=== PATIENT | male | born 1990 | race Caucasian/White ===

== ENCOUNTER 2017-06-19 08:49 | Inpatient (IN) | payer MEDICAID ==
[~2017-06-19] VITALS: Ht 188 cm; Wt 81.6 kg
[2017-06-19 08:49] VITALS: BP_SYST 119
[~2017-06-19 08:49] MED LIST: INSU100V SQ; INSU100V9 SQ; INSU100V9 SUBCUT; SSREG SUBCUT; WELSR100 PO
[2017-06-19] MEDS ORDERED: NACL 0.9% 1,000 ML IV ONE (09:15)
[2017-06-19] MEDS ORDERED: ONDANSETRON HCL 4 MG/2 ML VIAL IVP ONE ×2 (09:15→14:30)
[2017-06-19] MEDS ORDERED: PIPERACILLIN/TAZO 3.375 GM in NS 50 ML IV ONE (09:15)
[2017-06-19 09:18] LABS: BLOOD, URINE NEGATIVE (NEGATIVE); CLARITY/URINE CLEAR (CLEAR); COLOR,URINE YELLOW (YELLOW); GLUCOSE,URINE 3+ (NEGATIVE); KETONES,URINE 3+ (NEGATIVE); LEUKOCYTE ESTERASE ,URINE NEGATIVE (NEGATIVE); NITRITE, URINE NEGATIVE (NEGATIVE); PH,URINE 5.5 (5.0-8.0); PROTEIN URINE NEGATIVE (NEGATIVE); UROBILINOGEN,URINE 0.2 (0.2-1.0)
[2017-06-19 09:19] LABS: BASOPHILS # (AUTO) 0.1 K/uL (0.0-0.2); BASOPHILS % (AUTO) 0.7 % (0.0-2.0); EOSINOPHILS % (AUTO) 0.5 % (0.0-4.0); HEMATOCRIT 45.8 % (36-54); HEMOGLOBIN 15.4 g/dL (14.0-18.0); LYMPHOCYTES # (AUTO) 1.6 K/uL (1.0-5.5); MEAN CORPUSCULAR HEMOGLOBIN 30 pg (27-31); MEAN CORPUSCULAR HGB CONC 34 % (32-36); MEAN CORPUSCULAR VOLUME 91 fL (79.0-98.0); MONOCYTES # (AUTO) 0.4 K/uL (0.0-1.0); MONOCYTES % (AUTO) 4.9 % (1.7-9.3); NEUTROPHILS # (AUTO) 6.5 K/uL (1.8-7.7); NEUTROPHILS % (AUTO) 74.9 % (40.0-70.0); PLATELET COUNT (AUTO) 297 K/uL (130-430); RED BLOOD CELL COUNT(AUTO) 5.06 MIL/uL (4.2-6.2); RED CELL DISTRIBUTION WIDTH 11.9 % (9.0-15.0); WHITE BLOOD COUNT (AUTO) 8.6 K/uL (4.8-10.8)
[2017-06-19] MEDS ORDERED: DIPHENHYDRAMINE INJ 50 MG/ML VIAL IVP ONE (09:30)
[2017-06-19] MEDS ORDERED: MORPHINE 2 MG/ML INJ. SYRINGE IVP ONE ×2 (09:30→18:15)
[2017-06-19] MEDS ORDERED: PIPERACILLIN/TAZOBACTAM 3.375 GM/VIAL (ZOSYN) IV ONE (09:34)
[2017-06-19 09:35] LABS: BILIRUBIN,URINE NEGATIVE (NEGATIVE)
[2017-06-19 09:40] LABS: ANION GAP 15 (5-15); CALCIUM 9.8 mg/dL (8.4-11.0); CHLORIDE 95 mmol/L (98-107); CREATININE 1.42 mg/dL (0.55-1.30); GLUCOSE 379 mg/dL (70-99); POTASSIUM 4.5 mmol/L (3.5-5.1); SODIUM SERUM 135 mmol/L (136-145); UREA NITROGEN, BLOOD 26 mg/dL (8-21)
[2017-06-19 09:41] LABS: GFR AFRICAN AMERICAN 78 mL/min (>90)
[2017-06-19 09:44] LABS: INR 1.1 (0.80-1.20); PROTHROMBIN TIME 11.1 SECS (9.5-12.5)
[2017-06-19 09:44] LABS: BARBITURATE, URINE NEGATIVE (NEG <=200); BENZODIAZEPINE, URINE NEGATIVE (NEG <=150); CANNABINOID, URINE POSITIVE (NEG <=50); COCAINE, URINE NEGATIVE (NEG <=150); METHAMPHETAMINES SCREEN,URINE NEGATIVE (NEG <=500); OPIATE, URINE NEGATIVE (NEG <=100); PHENCYCLIDINE SCREEN,URINE NEGATIVE (NEG <=25); UR TRICYCLIC ANTIDEPRESSANTS NEGATIVE (NEG <=300); URINE AMPHETAMINE NEGATIVE (NEG <=500); URINE METHADONE NEGATIVE (NEG <=200); URINE OXYCODONE SCREEN NEGATIVE (NEG <=100); URINE PROPOXYPHENE SCREEN NEGATIVE (NEG <=300)
[2017-06-19 10:13] LABS: ALANINE AMINOTRANSFERASE 91 U/L (12-78); ALBUMIN 3.8 g/dL (3.4-4.8); ASPARTATE AMINOTRANSFERASE 39 U/L (10-37); FREE T4 (FREE THYROXINE) 1.3 ng/dL (0.6-1.6); TOTAL BILIRUBIN 1.7 mg/dL (0.0-1.0)
[2017-06-19 10:23] LABS: ALCOHOL, BLOOD < 3 mg/dL (<10)
[2017-06-19 10:59] LABS: ACETONE, SERUM POSITIVE (NEGATIVE)
[2017-06-19] MEDS ORDERED: INSU10VI4 SUBCUT (12:08)
[2017-06-19] MEDS ORDERED: INSU100I26 SQ (12:08)
[2017-06-19 15:59] VITALS: BP_SYST 145
[2017-06-19] MEDS ORDERED: CALCIUM CARBONATE 500 MG/ TAB.CHEW PO PRN (16:00)
[2017-06-19] MEDS ORDERED: ACETAMINOPHEN 325 MG TABLET PO PRN (16:00)
[2017-06-19] MEDS ORDERED: INSULIN REGULAR, HUMAN 100 UNITS/ML, 10 ML VIAL (novoLIN R) SUBCUT PRN (16:00)
[2017-06-19] MEDS ORDERED: DEXTROSE 50% JECT 50 ML DISP.SYRIN IVP PRN (16:00)
[2017-06-19] MEDS ORDERED: HYDROcodone/ACETAMIN 5-325 MG TAB (NORCO/ VICODIN) PO PRN (16:00)
[2017-06-19 16:40] VITALS: BP_SYST 150
[2017-06-19] MEDS: ONDANSETRON HCL 4 MG/2 ML VIAL IVP PRN (17:49)
[2017-06-19] MEDS: NACL 0.9% 1,000 ML IV SCH (17:49)
[2017-06-19 20:00] VITALS: BP_SYST 150
[2017-06-19] MEDS: PANTOPRAZOLE SODIUM 40 MG/VIAL (PROTONIX) IVP SCH (21:09)
[2017-06-19] MEDS: INSULIN ASPART 100 UNITS/ML, 10 ML VIAL (NovoLOG) SUBCUT PRN (21:21)
[2017-06-19] MEDS: METOCLOPRAMIDE HCL 10 MG/2 ML VIAL IVP PRN (21:23)
[2017-06-20] MEDS: NACL 0.9% 1,000 ML IV SCH ×3 (01:35→17:15)
[2017-06-20] MEDS: INSULIN ASPART 100 UNITS/ML, 10 ML VIAL (NovoLOG) SUBCUT PRN ×4 (06:15→22:57)
[2017-06-20] MEDS: METOCLOPRAMIDE HCL 10 MG/2 ML VIAL IVP PRN (06:17)
[2017-06-20 06:55] LABS: BASOPHILS % (AUTO) 0.4 % (0.0-2.0); EOSINOPHILS # (AUTO) 0.2 K/uL (0.0-0.4); EOSINOPHILS % (AUTO) 2.2 % (0.0-4.0); HEMATOCRIT 34.6 % (36-54); HEMOGLOBIN 11.9 g/dL (14.0-18.0); LYMPHOCYTES # (AUTO) 2.3 K/uL (1.0-5.5); LYMPHOCYTES % (AUTO) 28.2 % (20.5-51.5); MEAN CORPUSCULAR HEMOGLOBIN 31 pg (27-31); MEAN CORPUSCULAR HGB CONC 35 % (32-36); MEAN CORPUSCULAR VOLUME 91 fL (79.0-98.0); MONOCYTES # (AUTO) 0.6 K/uL (0.0-1.0); MONOCYTES % (AUTO) 7.7 % (1.7-9.3); NEUTROPHILS # (AUTO) 4.9 K/uL (1.8-7.7); NEUTROPHILS % (AUTO) 61.5 % (40.0-70.0); PLATELET COUNT (AUTO) 253 K/uL (130-430); RED BLOOD CELL COUNT(AUTO) 3.82 MIL/uL (4.2-6.2); RED CELL DISTRIBUTION WIDTH 11.4 % (9.0-15.0); WHITE BLOOD COUNT (AUTO) 8.1 K/uL (4.8-10.8)
[2017-06-20 06:56] LABS: CALCIUM 7.9 mg/dL (8.4-11.0); CREATININE 0.85 mg/dL (0.55-1.30); POTASSIUM 3.6 mmol/L (3.5-5.1)
[2017-06-20 07:11] LABS: ALBUMIN 2.9 g/dL (3.4-4.8); THYROID STIMULATING HORMONE 0.97 uIu/mL (0.36-3.74); TOTAL BILIRUBIN 0.9 mg/dL (0.0-1.0)
[2017-06-20 09:00] VITALS: BP_SYST 142
[2017-06-20] MEDS: PANTOPRAZOLE SODIUM 40 MG/VIAL (PROTONIX) IVP SCH ×2 (10:11→22:58)
[2017-06-20] MEDS: ONDANSETRON HCL 4 MG/2 ML VIAL IVP PRN ×2 (10:16→17:15)
[2017-06-20 12:00] VITALS: BP_SYST 137
[2017-06-20 16:50] VITALS: BP_SYST 136
[2017-06-20 20:00] VITALS: BP_SYST 138
[2017-06-20] MEDS ORDERED: ZOLPIDEM TARTRATE 5 MG TABLET PO ONE (22:15)
[2017-06-21] MEDS: INSULIN ASPART 100 UNITS/ML, 10 ML VIAL (NovoLOG) SUBCUT PRN ×4 (06:22→22:02)
[2017-06-21 06:31] LABS: BASOPHILS % (AUTO) 0.5 % (0.0-2.0); EOSINOPHILS # (AUTO) 0.1 K/uL (0.0-0.4); EOSINOPHILS % (AUTO) 1.3 % (0.0-4.0); HEMOGLOBIN 12.6 g/dL (14.0-18.0); LYMPHOCYTES # (AUTO) 2.3 K/uL (1.0-5.5); LYMPHOCYTES % (AUTO) 33.4 % (20.5-51.5); MEAN CORPUSCULAR HEMOGLOBIN 31 pg (27-31); MEAN CORPUSCULAR HGB CONC 35 % (32-36); MEAN CORPUSCULAR VOLUME 90 fL (79.0-98.0); MONOCYTES # (AUTO) 0.7 K/uL (0.0-1.0); MONOCYTES % (AUTO) 10.7 % (1.7-9.3); NEUTROPHILS # (AUTO) 3.8 K/uL (1.8-7.7); NEUTROPHILS % (AUTO) 54.1 % (40.0-70.0); PLATELET COUNT (AUTO) 235 K/uL (130-430); RED BLOOD CELL COUNT(AUTO) 4.01 MIL/uL (4.2-6.2); RED CELL DISTRIBUTION WIDTH 11.3 % (9.0-15.0); WHITE BLOOD COUNT (AUTO) 6.9 K/uL (4.8-10.8)
[2017-06-21 07:07] LABS: ALBUMIN 2.6 g/dL (3.4-4.8); CALCIUM 8.3 mg/dL (8.4-11.0); CREATININE 0.79 mg/dL (0.55-1.30); POTASSIUM 3.2 mmol/L (3.5-5.1); TOTAL BILIRUBIN 0.8 mg/dL (0.0-1.0)
[2017-06-21 08:12] VITALS: BP_SYST 139
[2017-06-21] MEDS: PANTOPRAZOLE SODIUM 40 MG/VIAL (PROTONIX) IVP SCH ×2 (08:50→21:55)
[2017-06-21] MEDS: METOCLOPRAMIDE HCL 10 MG/2 ML VIAL IVP PRN ×2 (08:55→16:09)
[2017-06-21] MEDS: NACL 0.9% 1,000 ML IV SCH ×2 (08:56→10:25)
[2017-06-21] MEDS ORDERED: POTASSIUM CHLORIDE 40 MEQ, LIDOCAINE JECT 2% PF 100 MG 75 MG in NS 250 ML IV ONE (09:30)
[2017-06-21] MEDS: ONDANSETRON HCL 4 MG/2 ML VIAL IVP PRN (12:04)
[2017-06-21 12:34] VITALS: BP_SYST 149
[2017-06-21 16:38] VITALS: BP_SYST 133
[2017-06-21] MEDS: KCL 20 mEq in 0.45% NS 1000 mL 1,000 ML IV SCH (17:30)
[2017-06-21 20:00] VITALS: BP_SYST 125
[2017-06-22] MEDS: KCL 20 mEq in 0.45% NS 1000 mL 1,000 ML IV SCH (03:54)
[2017-06-22 08:04] VITALS: BP_SYST 140
[2017-06-22] MEDS: PANTOPRAZOLE SODIUM 40 MG/VIAL (PROTONIX) IVP SCH (09:08)
[2017-06-22] MEDS: INSULIN ASPART 100 UNITS/ML, 10 ML VIAL (NovoLOG) SUBCUT PRN (11:44)
[2017-06-22 12:19] VITALS: BP_SYST 114
[2017-06-22 14:00] VITALS: BP_SYST 128
== END 2017-06-22 15:05 | disposition home or self-care (01) | DRG 812 ==
LOC: SED 08:49 → SMU 15:29
PROVIDERS: ADMIT Internal Medicine; ATTEND Internal Medicine
DX: T40.7X1A Poisoning by cannabis (derivatives), accidental (unintentional), initial encounter (principal); E10.65 Type 1 diabetes mellitus with hyperglycemia; B19.20 Unspecified viral hepatitis C without hepatic coma; F12.10 Cannabis abuse, uncomplicated; Z91.19 Patient's noncompliance with other medical treatment and regimen; Z79.4 Long term (current) use of insulin; Z88.8 Allergy status to other drugs, medicaments and biological substances
CPT/HCPCS: 36415; 71010; 74000-TC; 80053; 80307; 81003; 82009-TC; 82962; 83036; 83605; 83690-TC; 84439; 84443-TC; 85025; 85610-TC; 87040-TC; 87081; 93005; 96361; 96365; 96375; 96376; 99285; C9113; G0482; J1200; J1815; J2270; J2405; J2543; J2765; J3480; J7030; J7050

== ENCOUNTER 2017-07-09 19:14 | Inpatient (IN) | payer MEDICAID ==
[~2017-07-09] VITALS: Ht 188 cm; Wt 77.1 kg
[~2017-07-09 19:14] MED LIST changes: +DIF100 PO; +INSU100I26 SQ; -INSU100V9 SQ; -INSU100V9 SUBCUT; +INSU10VI4 SUBCUT; +OMEP20TA20 PO; -SSREG SUBCUT; -WELSR100 PO
[2017-07-09 19:20] VITALS: BP_SYST 129
[2017-07-09] MEDS ORDERED: NACL 0.9% 1,000 ML IV ONE ×2 (20:19→21:22)
[2017-07-09] MEDS ORDERED: PANTOPRAZOLE SODIUM 40 MG/VIAL (PROTONIX) IVP ONE (20:30)
[2017-07-09] MEDS ORDERED: ONDANSETRON HCL 4 MG/2 ML VIAL IVP ONE (20:30)
[2017-07-09] MEDS ORDERED: MORPHINE 4 MG/ML INJ. SYRINGE IVP ONE (20:30)
[2017-07-09 20:50] LABS: BASOPHILS # (AUTO) 0.1 K/uL (0.0-0.2); BASOPHILS % (AUTO) 1.7 % (0.0-2.0); HEMATOCRIT 33.1 % (36-54); HEMOGLOBIN 11.1 g/dL (14.0-18.0); LYMPHOCYTES # (AUTO) 1.1 K/uL (1.0-5.5); LYMPHOCYTES % (AUTO) 25.4 % (20.5-51.5); MEAN CORPUSCULAR HEMOGLOBIN 31 pg (27-31); MEAN CORPUSCULAR HGB CONC 33 % (32-36); MEAN CORPUSCULAR VOLUME 93 fL (79.0-98.0); MONOCYTES # (AUTO) 0.4 K/uL (0.0-1.0); MONOCYTES % (AUTO) 10.4 % (1.7-9.3); NEUTROPHILS # (AUTO) 2.7 K/uL (1.8-7.7); NEUTROPHILS % (AUTO) 61.5 % (40.0-70.0); PLATELET COUNT (AUTO) 257 K/uL (130-430); RED BLOOD CELL COUNT(AUTO) 3.56 MIL/uL (4.2-6.2); RED CELL DISTRIBUTION WIDTH 15.3 % (9.0-15.0); WHITE BLOOD COUNT (AUTO) 4.3 K/uL (4.8-10.8)
[2017-07-09 21:10] LABS: CALCIUM 7.7 mg/dL (8.4-11.0); CREATININE 0.98 mg/dL (0.55-1.30); POTASSIUM 3.4 mmol/L (3.5-5.1)
[2017-07-09 21:11] LABS: ALBUMIN 3.3 g/dL (3.4-4.8); TOTAL BILIRUBIN 1.4 mg/dL (0.0-1.0)
[2017-07-09] MEDS ORDERED: INSULIN REGULAR, HUMAN 10 UNITS/0.1 ML INJ IVP ONE (21:30)
[2017-07-09 22:39] LABS: BILIRUBIN,URINE NEGATIVE (NEGATIVE); BLOOD, URINE NEGATIVE (NEGATIVE); CLARITY/URINE CLEAR (CLEAR); COLOR,URINE YELLOW (YELLOW); GLUCOSE,URINE 3+ (NEGATIVE); KETONES,URINE NEGATIVE (NEGATIVE); LEUKOCYTE ESTERASE ,URINE NEGATIVE (NEGATIVE); NITRITE, URINE NEGATIVE (NEGATIVE); PROTEIN URINE NEGATIVE (NEGATIVE)
[2017-07-09 22:44] LABS: BACTERIA,URINE RARE /HPF (None Seen); RBC,URINE 0-3 /HPF (0-3); WBC,URINE 0-3 /HPF (0-3)
[2017-07-10 01:05] VITALS: BP_SYST 160
[2017-07-10] MEDS: MORPHINE 2 MG/ML INJ. SYRINGE IVP PRN ×4 (01:29→17:36)
[2017-07-10] MEDS: METOCLOPRAMIDE HCL 10 MG/2 ML VIAL IVP PRN ×2 (01:30→10:50)
[2017-07-10] MEDS: NACL 0.9% 1,000 ML IV SCH ×2 (01:47→13:50)
[2017-07-10 04:00] VITALS: BP_SYST 150
[2017-07-10] MEDS: INSULIN REGULAR, HUMAN 100 UNITS/ML, 10 ML VIAL (novoLIN R) SUBCUT PRN ×4 (06:38→23:12)
[2017-07-10] MEDS: ONDANSETRON HCL 4 MG/2 ML VIAL IVP PRN ×2 (06:39→12:24)
[2017-07-10 07:44] VITALS: BP_SYST 121
[2017-07-10 10:45] LABS: BASOPHILS % (AUTO) 0.7 % (0.0-2.0); EOSINOPHILS # (AUTO) 0.1 K/uL (0.0-0.4); EOSINOPHILS % (AUTO) 1.5 % (0.0-4.0); HEMATOCRIT 30.5 % (36-54); HEMOGLOBIN 10.6 g/dL (14.0-18.0); LYMPHOCYTES # (AUTO) 1.9 K/uL (1.0-5.5); LYMPHOCYTES % (AUTO) 39.6 % (20.5-51.5); MEAN CORPUSCULAR HEMOGLOBIN 32 pg (27-31); MEAN CORPUSCULAR HGB CONC 35 % (32-36); MEAN CORPUSCULAR VOLUME 92 fL (79.0-98.0); MONOCYTES # (AUTO) 0.5 K/uL (0.0-1.0); MONOCYTES % (AUTO) 10.4 % (1.7-9.3); NEUTROPHILS # (AUTO) 2.3 K/uL (1.8-7.7); NEUTROPHILS % (AUTO) 47.8 % (40.0-70.0); PLATELET COUNT (AUTO) 238 K/uL (130-430); RED BLOOD CELL COUNT(AUTO) 3.29 MIL/uL (4.2-6.2); RED CELL DISTRIBUTION WIDTH 15.6 % (9.0-15.0); WHITE BLOOD COUNT (AUTO) 4.8 K/uL (4.8-10.8)
[2017-07-10] MEDS: PANTOPRAZOLE SODIUM 40 MG/VIAL (PROTONIX) IVP SCH (10:48)
[2017-07-10] MEDS ORDERED: LACTULOSE 20 GM/30 ML UDC PO ONE (12:15)
[2017-07-10 13:03] VITALS: BP_SYST 159
[2017-07-10 16:01] VITALS: BP_SYST 118
[2017-07-10] MEDS: METOCLOPRAMIDE HCL 10 MG/2 ML VIAL IVP SCH ×2 (17:36→23:13)
[2017-07-10 20:00] VITALS: BP_SYST 131
[2017-07-10 20:49] LABS: BARBITURATE, URINE NEGATIVE (NEG <=200); BENZODIAZEPINE, URINE NEGATIVE (NEG <=150); CANNABINOID, URINE POSITIVE (NEG <=50); COCAINE, URINE NEGATIVE (NEG <=150); METHAMPHETAMINES SCREEN,URINE NEGATIVE (NEG <=500); PHENCYCLIDINE SCREEN,URINE NEGATIVE (NEG <=25); URINE AMPHETAMINE NEGATIVE (NEG <=500); URINE METHADONE NEGATIVE (NEG <=200)
[2017-07-10 20:50] LABS: OPIATE, URINE POSITIVE (NEG <=100); UR TRICYCLIC ANTIDEPRESSANTS NEGATIVE (NEG <=300); URINE OXYCODONE SCREEN NEGATIVE (NEG <=100); URINE PROPOXYPHENE SCREEN NEGATIVE (NEG <=300)
[2017-07-11] VITALS: BP_SYST 125
[2017-07-11] MEDS: NACL 0.9% 1,000 ML IV SCH ×2 (03:10→16:46)
[2017-07-11] MEDS: ONDANSETRON HCL 4 MG/2 ML VIAL IVP PRN ×2 (03:20→16:38)
[2017-07-11] MEDS: MORPHINE 2 MG/ML INJ. SYRINGE IVP PRN ×4 (03:20→23:15)
[2017-07-11 04:00] VITALS: BP_SYST 128
[2017-07-11] MEDS: METOCLOPRAMIDE HCL 10 MG/2 ML VIAL IVP SCH ×4 (06:12→23:14)
[2017-07-11 08:00] VITALS: BP_SYST 130
[2017-07-11] MEDS: PANTOPRAZOLE SODIUM 40 MG/VIAL (PROTONIX) IVP SCH (09:45)
[2017-07-11] MEDS: FLUCONAZOLE 100 MG TABLET (DIFLUCAN) PO SCH (09:46)
[2017-07-11] MEDS: INSULIN REGULAR, HUMAN 100 UNITS/ML, 10 ML VIAL (novoLIN R) SUBCUT PRN ×3 (11:44→23:17)
[2017-07-11 12:00] VITALS: BP_SYST 119
[2017-07-11 16:00] VITALS: BP_SYST 129
[2017-07-11 20:00] VITALS: BP_SYST 142
[2017-07-12 00:35] VITALS: BP_SYST 136
[2017-07-12] MEDS: ONDANSETRON HCL 4 MG/2 ML VIAL IVP PRN (03:57)
[2017-07-12] MEDS: MORPHINE 2 MG/ML INJ. SYRINGE IVP PRN ×2 (03:58→09:14)
[2017-07-12 05:35] VITALS: BP_SYST 167
[2017-07-12] MEDS: METOCLOPRAMIDE HCL 10 MG/2 ML VIAL IVP SCH (06:54)
[2017-07-12 08:12] VITALS: BP_SYST 128
[2017-07-12] MEDS: FLUCONAZOLE 100 MG TABLET (DIFLUCAN) PO SCH (08:58)
[2017-07-12] MEDS: PANTOPRAZOLE SODIUM 40 MG/VIAL (PROTONIX) IVP SCH (08:58)
[2017-07-12 11:31] VITALS: BP_SYST 128
== END 2017-07-12 12:10 | disposition home or self-care (01) | DRG 48 ==
LOC: SED 19:14 → SMU 07-10 00:29
PROVIDERS: ADMIT Internal Medicine Hospice and Palliative Medicine; ATTEND Internal Medicine Hospice and Palliative Medicine
DX: E10.43 Type 1 diabetes mellitus with diabetic autonomic (poly)neuropathy (principal); E10.65 Type 1 diabetes mellitus with hyperglycemia; K31.84 Gastroparesis; K59.00 Constipation, unspecified; K20.9 Esophagitis, unspecified; Z88.0 Allergy status to penicillin; F12.90 Cannabis use, unspecified, uncomplicated; F14.10 Cocaine abuse, uncomplicated; B18.2 Chronic viral hepatitis C; Z91.14 Patient's other noncompliance with medication regimen; Z79.899 Other long term (current) drug therapy
CPT/HCPCS: 36415; 80053; 80307; 81000-TC; 82962; 83690-TC; 85025; 87081; 96361; 96374; 96375; 99285; C9113; J1815; J2270; J2405; J2765; J7030

== ENCOUNTER 2017-07-15 10:50 | Inpatient (IN) | payer MEDICAID ==
[~2017-07-15] VITALS: Ht 188 cm; Wt 76.7 kg
[~2017-07-15 10:50] MED LIST changes: -INSU10VI4 SUBCUT; -OMEP20TA20 PO
[2017-07-15 10:58] VITALS: BP_SYST 134
[2017-07-15] MEDS ORDERED: NACL 0.9% 1,000 ML IV ONE ×2 (11:08→13:00)
[2017-07-15] MEDS ORDERED: ONDANSETRON HCL 4 MG/2 ML VIAL IVP ONE (11:15)
[2017-07-15 11:25] LABS: BILIRUBIN,URINE NEGATIVE (NEGATIVE); BLOOD, URINE NEGATIVE (NEGATIVE); CLARITY/URINE CLEAR (CLEAR); COLOR,URINE YELLOW (YELLOW); GLUCOSE,URINE 3+ (NEGATIVE); KETONES,URINE 3+ (NEGATIVE); LEUKOCYTE ESTERASE ,URINE NEGATIVE (NEGATIVE); NITRITE, URINE NEGATIVE (NEGATIVE); PROTEIN URINE NEGATIVE (NEGATIVE); UROBILINOGEN,URINE 0.2 (0.2-1.0)
[2017-07-15 11:27] LABS: BASOPHILS % (AUTO) 0.2 % (0.0-2.0); EOSINOPHILS % (AUTO) 0.1 % (0.0-4.0); HEMATOCRIT 37.6 % (36-54); LYMPHOCYTES # (AUTO) 1.7 K/uL (1.0-5.5); LYMPHOCYTES % (AUTO) 14.7 % (20.5-51.5); MEAN CORPUSCULAR HEMOGLOBIN 32 pg (27-31); MEAN CORPUSCULAR HGB CONC 35 % (32-36); MEAN CORPUSCULAR VOLUME 93 fL (79.0-98.0); MONOCYTES # (AUTO) 0.3 K/uL (0.0-1.0); MONOCYTES % (AUTO) 2.9 % (1.7-9.3); NEUTROPHILS # (AUTO) 9.5 K/uL (1.8-7.7); NEUTROPHILS % (AUTO) 82.1 % (40.0-70.0); PLATELET COUNT (AUTO) 365 K/uL (130-430); RED BLOOD CELL COUNT(AUTO) 4.06 MIL/uL (4.2-6.2); RED CELL DISTRIBUTION WIDTH 15.1 % (9.0-15.0); WHITE BLOOD COUNT (AUTO) 11.5 K/uL (4.8-10.8)
[2017-07-15] MEDS ORDERED: MORPHINE 2 MG/ML INJ. SYRINGE IVP ONE (11:30)
[2017-07-15 11:31] LABS: BACTERIA,URINE RARE /HPF (None Seen); MUCUS,URINE 1+ /LPF (None Seen); RBC,URINE 0-3 /HPF (0-3); WBC,URINE 0-3 /HPF (0-3)
[2017-07-15 11:39] LABS: CALCIUM 8.5 mg/dL (8.4-11.0); CREATININE 1.16 mg/dL (0.55-1.30); POTASSIUM 3.8 mmol/L (3.5-5.1)
[2017-07-15 11:46] LABS: ALBUMIN 4.1 g/dL (3.4-4.8); TOTAL BILIRUBIN 3.4 mg/dL (0.0-1.0)
[2017-07-15] MEDS ORDERED: INSULIN REGULAR, HUMAN 100 UNITS in NS 99 ML IV ONE ×2 (12:15)
[2017-07-15] MEDS ORDERED: INSULIN REGULAR, HUMAN 10 UNITS/0.1 ML INJ IVP ONE (12:45)
[2017-07-15] MEDS ORDERED: DEXTROSE 50% JECT 50 ML DISP.SYRIN IVP PRN (13:00)
[2017-07-15] MEDS ORDERED: METOCLOPRAMIDE HCL 10 MG/2 ML VIAL IVP PRN (13:00)
[2017-07-15 13:04] VITALS: BP_SYST 169
[2017-07-15] MEDS: NACL 0.9% 1,000 ML IV SCH ×3 (13:43→21:24)
[2017-07-15] MEDS: ONDANSETRON HCL 4 MG/2 ML VIAL IVP PRN (13:59)
[2017-07-15] MEDS: MORPHINE 2 MG/ML INJ. SYRINGE IVP PRN (16:30)
[2017-07-15] MEDS: ERYTHROMYCIN BASE 500 MG TABLET PO SCH (17:01)
[2017-07-15] MEDS: METOCLOPRAMIDE HCL 10 MG/2 ML VIAL IVP SCH ×2 (17:02→23:11)
[2017-07-15] MEDS: INSULIN REGULAR, HUMAN 100 UNITS/ML, 10 ML VIAL (novoLIN R) SUBCUT PRN ×2 (17:10→23:10)
[2017-07-15 17:34] VITALS: BP_SYST 156
[2017-07-15] MEDS ORDERED: [UNRECOGNIZED DRUG - OTHER] SQ SCH (21:00)
[2017-07-15] MEDS ORDERED: INSULIN GLARGINE HUM REC ANLOG 50 UNIT SQ SCH (21:00)
[2017-07-15] MEDS: PANTOPRAZOLE SODIUM 40 MG/VIAL (PROTONIX) IVP SCH (21:18)
[2017-07-15 21:49] VITALS: BP_SYST 112
[2017-07-16 01:11] VITALS: BP_SYST 125
[2017-07-16] MEDS: ONDANSETRON HCL 4 MG/2 ML VIAL IVP PRN ×4 (02:29→17:20)
[2017-07-16 04:14] VITALS: BP_SYST 129
[2017-07-16] MEDS: ERYTHROMYCIN BASE 500 MG TABLET PO SCH ×3 (06:18→17:00)
[2017-07-16] MEDS: METOCLOPRAMIDE HCL 10 MG/2 ML VIAL IVP SCH ×3 (06:19→21:55)
[2017-07-16 08:00] VITALS: BP_SYST 132
[2017-07-16] MEDS: PANTOPRAZOLE SODIUM 40 MG/VIAL (PROTONIX) IVP SCH ×2 (08:22→21:50)
[2017-07-16] MEDS: NACL 0.9% 1,000 ML IV SCH ×3 (08:22→21:57)
[2017-07-16] MEDS: MORPHINE 2 MG/ML INJ. SYRINGE IVP PRN ×4 (08:23→21:57)
[2017-07-16 12:00] VITALS: BP_SYST 163
[2017-07-16] MEDS: INSULIN REGULAR, HUMAN 100 UNITS/ML, 10 ML VIAL (novoLIN R) SUBCUT PRN ×2 (13:28→17:24)
[2017-07-16 16:00] VITALS: BP_SYST 133
[2017-07-16 20:00] VITALS: BP_SYST 167
[2017-07-17] MEDS: INSULIN REGULAR, HUMAN 100 UNITS/ML, 10 ML VIAL (novoLIN R) SUBCUT PRN ×2 (00:27→12:31)
[2017-07-17 00:29] VITALS: BP_SYST 140
[2017-07-17] MEDS: METOCLOPRAMIDE HCL 10 MG/2 ML VIAL IVP SCH ×2 (06:17→14:00)
[2017-07-17] MEDS: NACL 0.9% 1,000 ML IV SCH ×2 (06:18→12:18)
[2017-07-17] MEDS: ERYTHROMYCIN BASE 500 MG TABLET PO SCH ×2 (06:19→11:30)
[2017-07-17] MEDS: MORPHINE 2 MG/ML INJ. SYRINGE IVP PRN ×2 (06:19→10:51)
[2017-07-17 06:28] LABS: BASOPHILS % (AUTO) 0.7 % (0.0-2.0); EOSINOPHILS # (AUTO) 0.1 K/uL (0.0-0.4); EOSINOPHILS % (AUTO) 0.9 % (0.0-4.0); HEMATOCRIT 32.3 % (36-54); LYMPHOCYTES # (AUTO) 2.4 K/uL (1.0-5.5); LYMPHOCYTES % (AUTO) 37.3 % (20.5-51.5); MEAN CORPUSCULAR HEMOGLOBIN 31 pg (27-31); MEAN CORPUSCULAR HGB CONC 34 % (32-36); MEAN CORPUSCULAR VOLUME 91 fL (79.0-98.0); MONOCYTES # (AUTO) 0.5 K/uL (0.0-1.0); MONOCYTES % (AUTO) 7.1 % (1.7-9.3); NEUTROPHILS # (AUTO) 3.5 K/uL (1.8-7.7); PLATELET COUNT (AUTO) 254 K/uL (130-430); RED BLOOD CELL COUNT(AUTO) 3.54 MIL/uL (4.2-6.2); RED CELL DISTRIBUTION WIDTH 14.9 % (9.0-15.0); WHITE BLOOD COUNT (AUTO) 6.5 K/uL (4.8-10.8)
[2017-07-17 06:58] LABS: CALCIUM 7.7 mg/dL (8.4-11.0); CREATININE 0.59 mg/dL (0.55-1.30); POTASSIUM 3.1 mmol/L (3.5-5.1)
[2017-07-17 08:10] VITALS: BP_SYST 146
[2017-07-17] MEDS: PANTOPRAZOLE SODIUM 40 MG/VIAL (PROTONIX) IVP SCH (10:03)
[2017-07-17] MEDS ORDERED: POTASSIUM CHLORIDE 40 MEQ in NS 250 ML IV SCH (10:52)
[2017-07-17 12:00] VITALS: BP_SYST 150
== END 2017-07-17 15:50 | disposition left against medical advice (07) | DRG 48 ==
LOC: SED 10:50 → SMU 12:42
PROVIDERS: ADMIT Internal Medicine Hospice and Palliative Medicine; ATTEND Internal Medicine Hospice and Palliative Medicine
DX: E10.43 Type 1 diabetes mellitus with diabetic autonomic (poly)neuropathy (principal); K31.84 Gastroparesis; B18.2 Chronic viral hepatitis C; K31.89 Other diseases of stomach and duodenum; Z53.21 Procedure and treatment not carried out due to patient leaving prior to being seen by health care provider; R11.10 Vomiting, unspecified; T40.7X5A Adverse effect of cannabis (derivatives), initial encounter; Z79.4 Long term (current) use of insulin; Z88.8 Allergy status to other drugs, medicaments and biological substances; Z79.899 Other long term (current) drug therapy; Z71.51 Drug abuse counseling and surveillance of drug abuser; Z91.19 Patient's noncompliance with other medical treatment and regimen
CPT/HCPCS: 36415; 80053; 81000-TC; 82962; 83690-TC; 85025; 87081; 96361; 96374; 96375; 99285; C9113; J1815; J2270; J2405; J2765; J3480; J7030; J7050

== ENCOUNTER 2017-07-20 18:57 | Inpatient (IN) | payer MEDICAID ==
[~2017-07-20] VITALS: Ht 188 cm; Wt 74.8 kg
[2017-07-20 19:00] VITALS: BP_SYST 146
[2017-07-20] MEDS ORDERED: ONDANSETRON HCL 4 MG/2 ML VIAL IVP ONE ×2 (20:00→21:15)
[2017-07-20] MEDS ORDERED: MORPHINE 2 MG/ML INJ. SYRINGE IVP ONE (20:00)
[2017-07-20] MEDS ORDERED: NACL 0.9% 1,000 ML IV ONE ×2 (20:15→21:30)
[2017-07-20 20:20] LABS: BASOPHILS % (AUTO) 0.5 % (0.0-2.0); EOSINOPHILS % (AUTO) 0.2 % (0.0-4.0); HEMATOCRIT 39.5 % (36-54); HEMOGLOBIN 13.6 g/dL (14.0-18.0); LYMPHOCYTES # (AUTO) 1.3 K/uL (1.0-5.5); LYMPHOCYTES % (AUTO) 20.2 % (20.5-51.5); MEAN CORPUSCULAR HEMOGLOBIN 32 pg (27-31); MEAN CORPUSCULAR HGB CONC 34 % (32-36); MEAN CORPUSCULAR VOLUME 93 fL (79.0-98.0); MONOCYTES # (AUTO) 0.5 K/uL (0.0-1.0); NEUTROPHILS # (AUTO) 4.7 K/uL (1.8-7.7); NEUTROPHILS % (AUTO) 72.1 % (40.0-70.0); PLATELET COUNT (AUTO) 300 K/uL (130-430); RED BLOOD CELL COUNT(AUTO) 4.25 MIL/uL (4.2-6.2); RED CELL DISTRIBUTION WIDTH 15.3 % (9.0-15.0); WHITE BLOOD COUNT (AUTO) 6.5 K/uL (4.8-10.8)
[2017-07-20 20:32] LABS: ACETONE, SERUM TRACE (NEGATIVE)
[2017-07-20 20:33] LABS: ANION GAP 24 (5-15); CALCIUM 8.5 mg/dL (8.4-11.0); CHLORIDE 91 mmol/L (98-107); CREATININE 1.29 mg/dL (0.55-1.30); SODIUM SERUM 128 mmol/L (136-145); UREA NITROGEN, BLOOD 15 mg/dL (8-21)
[2017-07-20 20:43] LABS: GFR AFRICAN AMERICAN 87 mL/min (>90); GLUCOSE 450 mg/dL (70-99)
[2017-07-20 20:44] LABS: ALANINE AMINOTRANSFERASE 40 U/L (12-78); ALBUMIN 4.1 g/dL (3.4-4.8); ASPARTATE AMINOTRANSFERASE 17 U/L (10-37); LIPASE 49 U/L (73-393)
[2017-07-20] MEDS ORDERED: INSULIN REGULAR, HUMAN 10 UNITS/0.1 ML INJ IVP ONE (20:45)
[2017-07-20] MEDS ORDERED: PROMETHAZINE HCL 50 MG/ML AMP IM ONE (21:15)
[2017-07-20] MEDS ORDERED: INSULIN REGULAR, HUMAN 100 UNITS in NS 99 ML IV ONE ×2 (21:30)
[2017-07-20 22:00] VITALS: BP_SYST 147
[2017-07-20 22:34] LABS: CALCIUM 8.2 mg/dL (8.4-11.0); CREATININE 1.08 mg/dL (0.55-1.30); POTASSIUM 3.9 mmol/L (3.5-5.1)
[2017-07-20 23:00] VITALS: BP_SYST 117
[2017-07-20] MEDS ORDERED: POTASSIUM CHLORIDE 40 MEQ in NS 250 ML IV PRN (23:30)
[2017-07-20] MEDS ORDERED: INSULIN REGULAR, HUMAN 100 UNITS in NS 99 ML IV PRN ×2 (23:30)
[2017-07-20] MEDS ORDERED: MAGNESIUM SULFATE 1 GM in NS 100 ML IV PRN (23:30)
[2017-07-20] MEDS ORDERED: NA PHOS 15 MM in NS 250 ML IV PRN (23:30)
[2017-07-21] VITALS (23 sets, daily range): BP systolic 122–158
[2017-07-21 01:18] LABS: CALCIUM 7.9 mg/dL (8.4-11.0); CREATININE 0.99 mg/dL (0.55-1.30); PHOSPHORUS 3.6 mg/dL (2.7-4.5); POTASSIUM 4.3 mmol/L (3.5-5.1)
[2017-07-21] MEDS: ONDANSETRON HCL 4 MG/2 ML VIAL IVP PRN ×3 (03:39→20:35)
[2017-07-21 06:08] LABS: BILIRUBIN,URINE 1+ (NEGATIVE); BLOOD, URINE NEGATIVE (NEGATIVE); CLARITY/URINE CLEAR (CLEAR); COLOR,URINE YELLOW (YELLOW); GLUCOSE,URINE 2+ (NEGATIVE); KETONES,URINE 3+ (NEGATIVE); LEUKOCYTE ESTERASE ,URINE NEGATIVE (NEGATIVE); NITRITE, URINE NEGATIVE (NEGATIVE); PROTEIN URINE NEGATIVE (NEGATIVE); UROBILINOGEN,URINE 0.2 (0.2-1.0)
[2017-07-21 06:36] LABS: BACTERIA,URINE RARE /HPF (None Seen); RBC,URINE 0-3 /HPF (0-3); WBC,URINE 0-3 /HPF (0-3)
[2017-07-21 06:38] LABS: CALCIUM 8.1 mg/dL (8.4-11.0); CREATININE 0.85 mg/dL (0.55-1.30); PHOSPHORUS 3.4 mg/dL (2.7-4.5); POTASSIUM 3.8 mmol/L (3.5-5.1)
[2017-07-21 07:56] LABS: CALCIUM 8.8 mg/dL (8.4-11.0); CREATININE 0.87 mg/dL (0.55-1.30)
[2017-07-21 08:01] LABS: PHOSPHORUS 3.1 mg/dL (2.7-4.5)
[2017-07-21] MEDS: PANTOPRAZOLE SODIUM 40 MG/VIAL (PROTONIX) IVP SCH (09:13)
[2017-07-21] MEDS: NACL 0.9% 1,000 ML IV SCH ×2 (10:45→20:49)
[2017-07-21 13:10] LABS: CALCIUM 8.1 mg/dL (8.4-11.0); CREATININE 0.8 mg/dL (0.55-1.30); POTASSIUM 3.9 mmol/L (3.5-5.1)
[2017-07-21] MEDS: MORPHINE 4 MG/ML INJ. SYRINGE IVP PRN (14:35)
[2017-07-21 16:42] LABS: CALCIUM 7.9 mg/dL (8.4-11.0); CREATININE 0.72 mg/dL (0.55-1.30); POTASSIUM 3.3 mmol/L (3.5-5.1)
[2017-07-21] MEDS ORDERED: POTASSIUM CHLORIDE 40 MEQ in NS 250 ML IV ONE (17:30)
[2017-07-22] VITALS (12 sets, daily range): BP systolic 122–158
[2017-07-22] MEDS: MORPHINE 4 MG/ML INJ. SYRINGE IVP PRN ×3 (05:03→17:59)
[2017-07-22] MEDS: ONDANSETRON HCL 4 MG/2 ML VIAL IVP PRN ×3 (05:03→17:58)
[2017-07-22 06:41] LABS: BASOPHILS % (AUTO) 0.5 % (0.0-2.0); EOSINOPHILS # (AUTO) 0.1 K/uL (0.0-0.4); EOSINOPHILS % (AUTO) 1.2 % (0.0-4.0); HEMATOCRIT 32.1 % (36-54); HEMOGLOBIN 11.4 g/dL (14.0-18.0); LYMPHOCYTES # (AUTO) 1.8 K/uL (1.0-5.5); LYMPHOCYTES % (AUTO) 28.6 % (20.5-51.5); MEAN CORPUSCULAR HEMOGLOBIN 33 pg (27-31); MEAN CORPUSCULAR HGB CONC 36 % (32-36); MEAN CORPUSCULAR VOLUME 92 fL (79.0-98.0); MONOCYTES # (AUTO) 0.5 K/uL (0.0-1.0); MONOCYTES % (AUTO) 8.2 % (1.7-9.3); NEUTROPHILS # (AUTO) 3.9 K/uL (1.8-7.7); NEUTROPHILS % (AUTO) 61.5 % (40.0-70.0); PLATELET COUNT (AUTO) 233 K/uL (130-430); RED BLOOD CELL COUNT(AUTO) 3.47 MIL/uL (4.2-6.2); RED CELL DISTRIBUTION WIDTH 15.4 % (9.0-15.0); WHITE BLOOD COUNT (AUTO) 6.3 K/uL (4.8-10.8)
[2017-07-22] MEDS: NACL 0.9% 1,000 ML IV SCH ×2 (06:45→08:54)
[2017-07-22 07:07] LABS: PROTHROMBIN TIME 10.5 SECS (9.5-12.5)
[2017-07-22 07:15] LABS: CALCIUM 8.1 mg/dL (8.4-11.0); CREATININE 0.65 mg/dL (0.55-1.30); POTASSIUM 3.3 mmol/L (3.5-5.1)
[2017-07-22] MEDS: INSULIN REGULAR, HUMAN 100 UNITS/ML, 10 ML VIAL (novoLIN R) SUBCUT PRN ×4 (07:22→21:01)
[2017-07-22 07:29] LABS: ALBUMIN 3.1 g/dL (3.4-4.8); BILIRUBIN,DIRECT 0.4 mg/dL (0.0-0.3); TOTAL BILIRUBIN 1.7 mg/dL (0.0-1.0)
[2017-07-22] MEDS: PANTOPRAZOLE SODIUM 40 MG/VIAL (PROTONIX) IVP SCH (08:49)
[2017-07-22] MEDS ORDERED: HYDROcodone/ACETAMIN 5-325 MG TAB (NORCO/ VICODIN) PO PRN (12:45)
[2017-07-23] MEDS: METOCLOPRAMIDE HCL 10 MG/2 ML VIAL IVP PRN ×3 (00:19→19:26)
[2017-07-23] MEDS: MORPHINE 4 MG/ML INJ. SYRINGE IVP PRN ×4 (00:21→19:26)
[2017-07-23 00:32] VITALS: BP_SYST 146
[2017-07-23] MEDS: NACL 0.9% 1,000 ML IV SCH ×2 (02:45→11:48)
[2017-07-23] MEDS: ONDANSETRON HCL 4 MG/2 ML VIAL IVP PRN (06:39)
[2017-07-23 08:00] VITALS: BP_SYST 142
[2017-07-23] MEDS: PANTOPRAZOLE SODIUM 40 MG/VIAL (PROTONIX) IVP SCH (10:15)
[2017-07-23] MEDS: INSULIN REGULAR, HUMAN 100 UNITS/ML, 10 ML VIAL (novoLIN R) SUBCUT PRN ×2 (11:50→17:47)
[2017-07-23 12:00] VITALS: BP_SYST 152
[2017-07-23 13:21] LABS: BARBITURATE, URINE NEGATIVE (NEG <=200); BENZODIAZEPINE, URINE NEGATIVE (NEG <=150); CANNABINOID, URINE POSITIVE (NEG <=50); COCAINE, URINE NEGATIVE (NEG <=150); METHAMPHETAMINES SCREEN,URINE NEGATIVE (NEG <=500); OPIATE, URINE POSITIVE (NEG <=100); PHENCYCLIDINE SCREEN,URINE NEGATIVE (NEG <=25); UR TRICYCLIC ANTIDEPRESSANTS NEGATIVE (NEG <=300); URINE AMPHETAMINE NEGATIVE (NEG <=500); URINE METHADONE NEGATIVE (NEG <=200); URINE OXYCODONE SCREEN NEGATIVE (NEG <=100); URINE PROPOXYPHENE SCREEN NEGATIVE (NEG <=300)
[2017-07-23 15:36] LABS: FERRITIN 525 ng/mL (30-400)
[2017-07-23 16:00] VITALS: BP_SYST 145
[2017-07-23 18:25] LABS: ANTI NUCLEAR AB WITH REFLEX Negative (Negative)
[2017-07-23 20:00] VITALS: BP_SYST 128
[2017-07-24] MEDS: ONDANSETRON HCL 4 MG/2 ML VIAL IVP PRN (01:24)
[2017-07-24] MEDS: NACL 0.9% 1,000 ML IV SCH ×3 (01:24→21:04)
[2017-07-24] MEDS: MORPHINE 4 MG/ML INJ. SYRINGE IVP PRN ×4 (01:24→20:53)
[2017-07-24] MEDS: INSULIN REGULAR, HUMAN 100 UNITS/ML, 10 ML VIAL (novoLIN R) SUBCUT PRN ×2 (06:42→17:28)
[2017-07-24 08:00] VITALS: BP_SYST 144
[2017-07-24] MEDS: PANTOPRAZOLE SODIUM 40 MG/VIAL (PROTONIX) IVP SCH (08:35)
[2017-07-24] MEDS: METOCLOPRAMIDE HCL 10 MG/2 ML VIAL IVP PRN ×3 (08:35→20:52)
[2017-07-24 10:13] LABS: BASOPHILS % (AUTO) 1.1 % (0.0-2.0); EOSINOPHILS % (AUTO) 1.1 % (0.0-4.0); HEMATOCRIT 31.4 % (36-54); HEMOGLOBIN 10.9 g/dL (14.0-18.0); LYMPHOCYTES # (AUTO) 1.4 K/uL (1.0-5.5); LYMPHOCYTES % (AUTO) 30.7 % (20.5-51.5); MEAN CORPUSCULAR HEMOGLOBIN 32 pg (27-31); MEAN CORPUSCULAR HGB CONC 35 % (32-36); MEAN CORPUSCULAR VOLUME 93 fL (79.0-98.0); MONOCYTES # (AUTO) 0.4 K/uL (0.0-1.0); MONOCYTES % (AUTO) 9.6 % (1.7-9.3); NEUTROPHILS # (AUTO) 2.7 K/uL (1.8-7.7); NEUTROPHILS % (AUTO) 57.5 % (40.0-70.0); PLATELET COUNT (AUTO) 232 K/uL (130-430); RED BLOOD CELL COUNT(AUTO) 3.39 MIL/uL (4.2-6.2); RED CELL DISTRIBUTION WIDTH 15.5 % (9.0-15.0); WHITE BLOOD COUNT (AUTO) 4.5 K/uL (4.8-10.8)
[2017-07-24 10:24] LABS: CALCIUM 8.3 mg/dL (8.4-11.0); CREATININE 0.59 mg/dL (0.55-1.30); POTASSIUM 3.9 mmol/L (3.5-5.1)
[2017-07-24 10:29] LABS: ALBUMIN 3.1 g/dL (3.4-4.8); TOTAL BILIRUBIN 1.6 mg/dL (0.0-1.0)
[2017-07-24 12:00] VITALS: BP_SYST 139
[2017-07-24 16:00] VITALS: BP_SYST 142
[2017-07-24 19:00] VITALS: BP_SYST 125
[2017-07-24 20:00] VITALS: BP_SYST 125
[2017-07-25] MEDS: NACL 0.9% 1,000 ML IV SCH (04:45)
[2017-07-25] MEDS: INSULIN REGULAR, HUMAN 100 UNITS/ML, 10 ML VIAL (novoLIN R) SUBCUT PRN ×2 (06:52→12:23)
[2017-07-25] MEDS: MORPHINE 4 MG/ML INJ. SYRINGE IVP PRN ×2 (06:58→13:15)
[2017-07-25] MEDS: ONDANSETRON HCL 4 MG/2 ML VIAL IVP PRN (07:01)
[2017-07-25 08:12] VITALS: BP_SYST 130
[2017-07-25] MEDS: PANTOPRAZOLE SODIUM 40 MG/VIAL (PROTONIX) IVP SCH (09:07)
[2017-07-25 12:18] VITALS: BP_SYST 108
[2017-07-25 12:45] VITALS: BP_SYST 108
[2017-07-25] MEDS: METOCLOPRAMIDE HCL 10 MG/2 ML VIAL IVP PRN (13:07)
[2017-07-25] MEDS ORDERED: PRO40 PO (14:00)
[2017-07-25] MEDS ORDERED: ONDA4TAB22 SL (14:01)
[2017-07-25] MEDS ORDERED: ERYT500T74 PO (14:02)
[2017-07-25] MEDS ORDERED: METO-290 PO (14:02)
== END 2017-07-25 14:14 | disposition home or self-care (01) | DRG 48 ==
LOC: SED 18:57 → SIC 21:30 → SMU 07-22 10:56
PROVIDERS: ADMIT Internal Medicine Hospice and Palliative Medicine; ATTEND Internal Medicine Hospice and Palliative Medicine
DX: E10.43 Type 1 diabetes mellitus with diabetic autonomic (poly)neuropathy (principal); E87.1 Hypo-osmolality and hyponatremia; E10.10 Type 1 diabetes mellitus with ketoacidosis without coma; K31.84 Gastroparesis; B18.2 Chronic viral hepatitis C; F15.10 Other stimulant abuse, uncomplicated; F12.10 Cannabis abuse, uncomplicated; E80.4 Gilbert syndrome; Z79.4 Long term (current) use of insulin; Z89.519 Acquired absence of unspecified leg below knee; Z88.8 Allergy status to other drugs, medicaments and biological substances; Z91.11 Patient's noncompliance with dietary regimen; Z91.14 Patient's other noncompliance with medication regimen
CPT/HCPCS: 36415; 36600; 80048; 80053; 80076; 80307; 81000-TC; 82009-TC; 82728; 82803-TC; 82962; 83690-TC; 83735-TC; 84100-TC; 85025; 85610-TC; 86038; 87081; 93005; 96372; 96374; 96375; 96376; 99285; C9113; J1815; J2270; J2405; J2550; J2765; J3480; J7030; J7050

== ENCOUNTER 2017-07-27 09:38 | Emergency (ER) | payer MEDICAID ==
[~2017-07-27] VITALS: Ht 188 cm; Wt 72.6 kg
[2017-07-27 09:38] VITALS: BP_SYST 138
[~2017-07-27 09:38] MED LIST changes: +ERYT500T74 PO; +METO-290 PO; +ONDA4TAB22 SL; +PRO40 PO
--- NOTE | 2017-07-27 09:38 | NUR ---
BROUGHT BACK TO BED #4 AND TRIAGED. REPORT GIVEN TO AVILA/CELE
--- NOTE | 2017-07-27 09:48 | NUR ---
ER Dr. Cage at bedside examining patient.
[2017-07-27] MEDS ORDERED: NACL 0.9% 1,000 ML IV ONE ×2 (09:51→11:30)
--- NOTE | 2017-07-27 09:55 | NUR ---
# 20 gauge angiocath placed to L AC. Use of asceptic technique. Opsite placed over site. Blood return noted. Blood for lab drawn from site & given to lab staff. Flushed with 10 cc of normal saline. No evidence of infiltration noted. Patient tolerated well.
[2017-07-27] MEDS ORDERED: ONDANSETRON HCL 4 MG/2 ML VIAL IVP ONE ×2 (10:00→14:45)
[2017-07-27] MEDS ORDERED: HYDROmorphone 1 MG INJ. 1 MG/ML AMPUL IM ONE (10:00)
--- NOTE | 2017-07-27 10:01 | NUR ---
Patient transported to radiology via wheelchair, accompanied by rad staff.
--- NOTE | 2017-07-27 10:04 | NUR ---
Returned from radiology, back to [facility]. Pt tolerated well.
[2017-07-27 10:10] LABS: BASOPHILS # (AUTO) 0.1 K/uL (0.0-0.2); BASOPHILS % (AUTO) 0.8 % (0.0-2.0); EOSINOPHILS % (AUTO) 0.2 % (0.0-4.0); HEMATOCRIT 40.1 % (36-54); HEMOGLOBIN 13.9 g/dL (14.0-18.0); LYMPHOCYTES # (AUTO) 1.3 K/uL (1.0-5.5); LYMPHOCYTES % (AUTO) 18.9 % (20.5-51.5); MEAN CORPUSCULAR HEMOGLOBIN 32 pg (27-31); MEAN CORPUSCULAR HGB CONC 35 % (32-36); MEAN CORPUSCULAR VOLUME 93 fL (79.0-98.0); MONOCYTES # (AUTO) 0.2 K/uL (0.0-1.0); NEUTROPHILS # (AUTO) 5.3 K/uL (1.8-7.7); NEUTROPHILS % (AUTO) 77.1 % (40.0-70.0); PLATELET COUNT (AUTO) 354 K/uL (130-430); RED BLOOD CELL COUNT(AUTO) 4.31 MIL/uL (4.2-6.2); RED CELL DISTRIBUTION WIDTH 15.4 % (9.0-15.0); WHITE BLOOD COUNT (AUTO) 6.9 K/uL (4.8-10.8)
[2017-07-27 10:27] LABS: PROTHROMBIN TIME 10.4 SECS (9.5-12.5)
--- NOTE | 2017-07-27 10:36 | NUR ---
Pt medicated for nausea and pain. Pt tolerated well. will continue to monitor.
[2017-07-27 10:37] LABS: ALANINE AMINOTRANSFERASE 165 U/L (12-78); ALBUMIN 4.4 g/dL (3.4-4.8); AMYLASE 36 U/L (0-100); ANION GAP 15 (5-15); ASPARTATE AMINOTRANSFERASE 72 U/L (10-37); CALCIUM 9.8 mg/dL (8.4-11.0); CHLORIDE 90 mmol/L (98-107); LIPASE 60 U/L (73-393); POTASSIUM 4.6 mmol/L (3.5-5.1); TOTAL BILIRUBIN 3.5 mg/dL (0.0-1.0)
[2017-07-27 10:39] LABS: SODIUM SERUM 128 mmol/L (136-145)
[2017-07-27 10:42] LABS: GLUCOSE 418 mg/dL (70-99)
[2017-07-27 10:43] LABS: UREA NITROGEN, BLOOD 24 mg/dL (8-21)
--- NOTE | 2017-07-27 12:30 | NUR ---
PT SLEEPING ENDORSED TO ANTONIO GENTILE.
--- NOTE | 2017-07-27 13:00 | NUR ---
ASSUMED CARE. PT HAS NO ACUE DISTRESS NOTED.
--- NOTE | 2017-07-27 13:33 | NUR ---
PT REPORTS NAUSEA RESOLVED AND PAIN GREATLY REDUCED.pT GIVEN ICE CHIPS FOR PO CHALLENGE.
--- NOTE | 2017-07-27 13:40 | NUR ---
Pt attempting urine collection again.
[2017-07-27 14:38] LABS: BILIRUBIN,URINE 1+ (NEGATIVE); BLOOD, URINE NEGATIVE (NEGATIVE); CLARITY/URINE CLEAR (CLEAR); COLOR,URINE YELLOW (YELLOW); GLUCOSE,URINE 2+ (NEGATIVE); KETONES,URINE 3+ (NEGATIVE); LEUKOCYTE ESTERASE ,URINE NEGATIVE (NEGATIVE); NITRITE, URINE NEGATIVE (NEGATIVE); PROTEIN URINE NEGATIVE (NEGATIVE)
[2017-07-27 14:44] LABS: BACTERIA,URINE RARE /HPF (None Seen); MUCUS,URINE 1+ /LPF (None Seen); RBC,URINE 0-3 /HPF (0-3); WBC,URINE 0-3 /HPF (0-3)
[2017-07-27] MEDS ORDERED: HYDROmorphone 1 MG INJ. 1 MG/ML AMPUL IVP ONE (14:45)
[2017-07-27] MEDS ORDERED: DOCUSATE SODIUM 100 MG CAPSULE PO ONE (15:00)
[2017-07-27] MEDS ORDERED: SENNOSIDES 8.6 MG TABLET PO ONE (15:00)
[2017-07-27] MEDS ORDERED: POLYETHYLENE GLYCOL 3350, 17 GM/ POWD.PACK PO SCH (15:45)
[2017-07-27] MEDS ORDERED: MAGNESIUM CITRATE 300 ML ORAL SOLUTION PO ONE (16:45)
--- NOTE | 2017-07-27 16:45 | NUR ---
Pt medicated for constipation. Pt tolerating well.
--- NOTE | 2017-07-27 17:00 | NUR ---
ER at bedside examining patient.
--- NOTE | 2017-07-27 17:25 | NUR ---
Patient given written and verbal discharge instructions and verbalizes understanding. ER MD discussed with patient the results and treatment provided. Patient in stable condition. ID arm band removed. IV catheter removed intact and dressing applied, no active bleeding. Rx of Percocet, Miralax, Colace given. Patient educated on pain management and to follow up with PMD. Pain Scale 3/10. Opportunity for questions provided and answered.
[2017-07-27 17:28] VITALS: BP_SYST 162
== END 2017-07-27 17:27 | disposition home or self-care (01) ==
LOC: SED 09:38
DX: K59.00 Constipation, unspecified (principal); E11.9 Type 2 diabetes mellitus without complications; Z86.19 Personal history of other infectious and parasitic diseases; Z79.4 Long term (current) use of insulin; Z88.8 Allergy status to other drugs, medicaments and biological substances
CPT/HCPCS: 36415; 74020; 76700; 80053; 81000; 82150; 82962; 83690; 85025; 85610; 96361; 96374; 96375; 96376; 99285; J1170; J2405; J7030

== ENCOUNTER 2017-08-09 11:12 | Emergency (ER) | payer MEDICAID ==
[~2017-08-09] VITALS: Ht 188 cm; Wt 77.1 kg
[2017-08-09 11:20] VITALS: BP_SYST 155
[2017-08-09] MEDS ORDERED: NACL 0.9% 1,000 ML IV ONE (13:06)
[2017-08-09] MEDS ORDERED: ONDANSETRON HCL 4 MG/2 ML VIAL IVP ONE ×2 (13:15→16:00)
[2017-08-09] MEDS ORDERED: HYDROmorphone 1 MG INJ. 1 MG/ML AMPUL IVP ONE ×2 (13:15→16:00)
[2017-08-09 13:22] LABS: BILIRUBIN,URINE NEGATIVE (NEGATIVE); BLOOD, URINE NEGATIVE (NEGATIVE); CLARITY/URINE CLEAR (CLEAR); COLOR,URINE YELLOW (YELLOW); GLUCOSE,URINE 3+ (NEGATIVE); KETONES,URINE NEGATIVE (NEGATIVE); LEUKOCYTE ESTERASE ,URINE NEGATIVE (NEGATIVE); NITRITE, URINE NEGATIVE (NEGATIVE); PH,URINE 5.5 (5.0-8.0); PROTEIN URINE NEGATIVE (NEGATIVE); UROBILINOGEN,URINE 0.2 (0.2-1.0)
[2017-08-09 13:35] LABS: BARBITURATE, URINE NEGATIVE (NEG <=200); BENZODIAZEPINE, URINE NEGATIVE (NEG <=150); CANNABINOID, URINE POSITIVE (NEG <=50); COCAINE, URINE NEGATIVE (NEG <=150); METHAMPHETAMINES SCREEN,URINE NEGATIVE (NEG <=500); OPIATE, URINE NEGATIVE (NEG <=100); PHENCYCLIDINE SCREEN,URINE NEGATIVE (NEG <=25); UR TRICYCLIC ANTIDEPRESSANTS NEGATIVE (NEG <=300); URINE AMPHETAMINE NEGATIVE (NEG <=500); URINE METHADONE NEGATIVE (NEG <=200); URINE OXYCODONE SCREEN NEGATIVE (NEG <=100); URINE PROPOXYPHENE SCREEN NEGATIVE (NEG <=300)
[2017-08-09 13:41] LABS: BASOPHILS % (AUTO) 0.6 % (0.0-2.0); EOSINOPHILS # (AUTO) 0.1 K/uL (0.0-0.4); EOSINOPHILS % (AUTO) 1.7 % (0.0-4.0); HEMOGLOBIN 11.2 g/dL (14.0-18.0); LYMPHOCYTES # (AUTO) 1.6 K/uL (1.0-5.5); LYMPHOCYTES % (AUTO) 33.5 % (20.5-51.5); MEAN CORPUSCULAR HEMOGLOBIN 32 pg (27-31); MEAN CORPUSCULAR HGB CONC 34 % (32-36); MEAN CORPUSCULAR VOLUME 95 fL (79.0-98.0); MONOCYTES # (AUTO) 0.4 K/uL (0.0-1.0); MONOCYTES % (AUTO) 7.7 % (1.7-9.3); NEUTROPHILS # (AUTO) 2.8 K/uL (1.8-7.7); NEUTROPHILS % (AUTO) 56.5 % (40.0-70.0); PLATELET COUNT (AUTO) 260 K/uL (130-430); RED BLOOD CELL COUNT(AUTO) 3.46 MIL/uL (4.2-6.2); RED CELL DISTRIBUTION WIDTH 14.2 % (9.0-15.0); WHITE BLOOD COUNT (AUTO) 4.9 K/uL (4.8-10.8)
[2017-08-09 13:49] LABS: PROTHROMBIN TIME 10.3 SECS (9.5-12.5)
[2017-08-09 13:50] LABS: CALCIUM 8.8 mg/dL (8.4-11.0); CREATININE 0.71 mg/dL (0.55-1.30); POTASSIUM 3.8 mmol/L (3.5-5.1)
[2017-08-09 13:55] LABS: ALBUMIN 3.4 g/dL (3.4-4.8); TOTAL BILIRUBIN 0.5 mg/dL (0.0-1.0)
[2017-08-09 13:55] LABS: BACTERIA,URINE FEW /HPF (None Seen); RBC,URINE 0-3 /HPF (0-3); WBC,URINE 0-3 /HPF (0-3)
[2017-08-09 13:56] LABS: MUCUS,URINE 1+ /LPF (None Seen)
[2017-08-09 16:34] VITALS: BP_SYST 126
== END 2017-08-09 16:34 | disposition home or self-care (01) ==
LOC: SED 11:12
DX: E11.43 Type 2 diabetes mellitus with diabetic autonomic (poly)neuropathy (principal); K31.84 Gastroparesis; F12.10 Cannabis abuse, uncomplicated; Z86.19 Personal history of other infectious and parasitic diseases; Z79.4 Long term (current) use of insulin; Z88.8 Allergy status to other drugs, medicaments and biological substances
CPT/HCPCS: 36415; 80053; 80307; 81000; 82150; 83690; 85025; 85610; 85730; 96361; 96374; 96375; 96376; 99284; J1170; J2405; J7030

== ENCOUNTER 2017-08-13 14:25 | Emergency (ER) | payer MEDICAID ==
[~2017-08-13] VITALS: Ht 188 cm; Wt 79.4 kg
[2017-08-13 14:32] VITALS: BP_SYST 131
[2017-08-13 15:10] LABS: BASOPHILS % (AUTO) 0.6 % (0.0-2.0); EOSINOPHILS # (AUTO) 0.1 K/uL (0.0-0.4); HEMATOCRIT 32.5 % (36-54); LYMPHOCYTES # (AUTO) 1.4 K/uL (1.0-5.5); LYMPHOCYTES % (AUTO) 23.7 % (20.5-51.5); MEAN CORPUSCULAR HEMOGLOBIN 32 pg (27-31); MEAN CORPUSCULAR HGB CONC 34 % (32-36); MEAN CORPUSCULAR VOLUME 96 fL (79.0-98.0); MONOCYTES # (AUTO) 0.3 K/uL (0.0-1.0); MONOCYTES % (AUTO) 4.5 % (1.7-9.3); NEUTROPHILS % (AUTO) 70.2 % (40.0-70.0); PLATELET COUNT (AUTO) 265 K/uL (130-430); RED CELL DISTRIBUTION WIDTH 13.5 % (9.0-15.0); WHITE BLOOD COUNT (AUTO) 5.8 K/uL (4.8-10.8)
[2017-08-13 15:38] LABS: CALCIUM 8.6 mg/dL (8.4-11.0); CREATININE 0.91 mg/dL (0.55-1.30); POTASSIUM 4.1 mmol/L (3.5-5.1)
[2017-08-13 15:42] LABS: ALBUMIN 3.4 g/dL (3.4-4.8); PROTHROMBIN TIME 10.3 SECS (9.5-12.5); TOTAL BILIRUBIN 0.9 mg/dL (0.0-1.0)
[2017-08-13] MEDS ORDERED: ONDANSETRON HCL 4 MG/2 ML VIAL IVP ONE (16:00)
[2017-08-13] MEDS ORDERED: NACL 0.9% 1,000 ML IV ONE (16:00)
[2017-08-13] MEDS ORDERED: KETOROLAC TROMETHAMINE 30 MG VIAL IVP ONE (16:00)
[2017-08-13 16:16] LABS: BILIRUBIN,URINE NEGATIVE (NEGATIVE); BLOOD, URINE NEGATIVE (NEGATIVE); CLARITY/URINE CLEAR (CLEAR); COLOR,URINE YELLOW (YELLOW); GLUCOSE,URINE 3+ (NEGATIVE); KETONES,URINE NEGATIVE (NEGATIVE); LEUKOCYTE ESTERASE ,URINE NEGATIVE (NEGATIVE); NITRITE, URINE NEGATIVE (NEGATIVE); PH,URINE 6.5 (5.0-8.0); PROTEIN URINE NEGATIVE (NEGATIVE); UROBILINOGEN,URINE 0.2 (0.2-1.0)
[2017-08-13 16:26] LABS: BACTERIA,URINE FEW /HPF (None Seen); RBC,URINE 0-3 /HPF (0-3)
[2017-08-13] MEDS ORDERED: INSULIN REGULAR, HUMAN 10 UNITS/0.1 ML INJ IVP ONE (17:15)
[2017-08-13] MEDS ORDERED: MORPHINE 4 MG/ML INJ. SYRINGE IVP ONE (17:15)
[2017-08-13 18:25] VITALS: BP_SYST 132
== END 2017-08-13 18:24 | disposition left against medical advice (07) ==
LOC: SED 14:25
DX: E11.65 Type 2 diabetes mellitus with hyperglycemia (principal); R10.32 Left lower quadrant pain; Z86.19 Personal history of other infectious and parasitic diseases; Z79.899 Other long term (current) drug therapy; Z88.8 Allergy status to other drugs, medicaments and biological substances
CPT/HCPCS: 36415; 74000; 74176; 80053; 81000; 82009; 82150; 82962; 83690; 85025; 85610; 85730; 87086; 96361; 96374; 96375; 99285; J1815; J1885; J2270; J2405; J7030

== ENCOUNTER 2017-08-15 05:36 | Emergency (ER) | payer MEDICAID ==
[~2017-08-15] VITALS: Ht 188 cm; Wt 79.4 kg
[2017-08-15 05:40] VITALS: BP_SYST 160
[2017-08-15 06:07] LABS: BASOPHILS % (AUTO) 0.5 % (0.0-2.0); EOSINOPHILS # (AUTO) 0.1 K/uL (0.0-0.4); EOSINOPHILS % (AUTO) 1.1 % (0.0-4.0); HEMOGLOBIN 12.1 g/dL (14.0-18.0); LYMPHOCYTES # (AUTO) 1.3 K/uL (1.0-5.5); LYMPHOCYTES % (AUTO) 22.8 % (20.5-51.5); MEAN CORPUSCULAR HEMOGLOBIN 33 pg (27-31); MEAN CORPUSCULAR HGB CONC 35 % (32-36); MEAN CORPUSCULAR VOLUME 95 fL (79.0-98.0); MONOCYTES # (AUTO) 0.2 K/uL (0.0-1.0); MONOCYTES % (AUTO) 3.8 % (1.7-9.3); NEUTROPHILS # (AUTO) 3.9 K/uL (1.8-7.7); NEUTROPHILS % (AUTO) 71.8 % (40.0-70.0); PLATELET COUNT (AUTO) 273 K/uL (130-430); RED BLOOD CELL COUNT(AUTO) 3.68 MIL/uL (4.2-6.2); RED CELL DISTRIBUTION WIDTH 13.9 % (9.0-15.0); WHITE BLOOD COUNT (AUTO) 5.5 K/uL (4.8-10.8)
[2017-08-15] MEDS ORDERED: NACL 0.9% 1,000 ML IV ONE (06:15)
[2017-08-15] MEDS ORDERED: ONDANSETRON HCL 4 MG/2 ML VIAL IVP ONE (06:15)
[2017-08-15 06:18] LABS: BILIRUBIN,URINE NEGATIVE (NEGATIVE); BLOOD, URINE NEGATIVE (NEGATIVE); CLARITY/URINE CLEAR (CLEAR); COLOR,URINE YELLOW (YELLOW); GLUCOSE,URINE 3+ (NEGATIVE); KETONES,URINE NEGATIVE (NEGATIVE); LEUKOCYTE ESTERASE ,URINE NEGATIVE (NEGATIVE); NITRITE, URINE NEGATIVE (NEGATIVE); PROTEIN URINE NEGATIVE (NEGATIVE); UROBILINOGEN,URINE 0.2 (0.2-1.0)
[2017-08-15 06:18] LABS: CREATININE 0.84 mg/dL (0.55-1.30)
[2017-08-15 06:23] LABS: PROTHROMBIN TIME 9.9 SECS (9.5-12.5)
[2017-08-15 06:26] LABS: ALBUMIN 3.7 g/dL (3.4-4.8); TOTAL BILIRUBIN 0.7 mg/dL (0.0-1.0)
[2017-08-15 06:31] LABS: BACTERIA,URINE FEW /HPF (None Seen); RBC,URINE 0-3 /HPF (0-3); WBC,URINE 0-3 /HPF (0-3)
[2017-08-15 06:32] LABS: BARBITURATE, URINE NEGATIVE (NEG <=200); BENZODIAZEPINE, URINE NEGATIVE (NEG <=150); CANNABINOID, URINE NEGATIVE (NEG <=50); COCAINE, URINE NEGATIVE (NEG <=150); METHAMPHETAMINES SCREEN,URINE NEGATIVE (NEG <=500); OPIATE, URINE NEGATIVE (NEG <=100); PHENCYCLIDINE SCREEN,URINE NEGATIVE (NEG <=25); UR TRICYCLIC ANTIDEPRESSANTS NEGATIVE (NEG <=300); URINE AMPHETAMINE NEGATIVE (NEG <=500); URINE METHADONE NEGATIVE (NEG <=200); URINE OXYCODONE SCREEN NEGATIVE (NEG <=100); URINE PROPOXYPHENE SCREEN NEGATIVE (NEG <=300)
[2017-08-15] MEDS ORDERED: KETOROLAC TROMETHAMINE 30 MG VIAL IVP ONE (07:00)
[2017-08-15] MEDS ORDERED: MORPHINE 4 MG/ML INJ. SYRINGE IVP ONE (07:30)
[2017-08-15 07:58] VITALS: BP_SYST 145
== END 2017-08-15 07:58 | disposition home or self-care (01) ==
LOC: SED 05:36
DX: E11.65 Type 2 diabetes mellitus with hyperglycemia (principal); R10.9 Unspecified abdominal pain; R11.2 Nausea with vomiting, unspecified; Z86.19 Personal history of other infectious and parasitic diseases; Z79.899 Other long term (current) drug therapy; Z88.8 Allergy status to other drugs, medicaments and biological substances
CPT/HCPCS: 36415; 80053; 80307; 81000; 82150; 82962; 83690; 85025; 85610; 85730; 96361; 96374; 96375; 99284; J1885; J2270; J2405; J7030

== ENCOUNTER 2017-08-15 15:38 | Inpatient (IN) | payer MEDICAID ==
[~2017-08-15] VITALS: Ht 188 cm; Wt 79.4 kg
[2017-08-15 15:42] VITALS: BP_SYST 159
[2017-08-15] MEDS ORDERED: ONDANSETRON HCL 4 MG/2 ML VIAL IVP ONE ×2 (16:15→18:30)
[2017-08-15] MEDS ORDERED: NACL 0.9% 1,000 ML IV ONE (16:15)
[2017-08-15 16:53] LABS: BASOPHILS % (AUTO) 0.6 % (0.0-2.0); EOSINOPHILS % (AUTO) 0.3 % (0.0-4.0); HEMATOCRIT 33.1 % (36-54); HEMOGLOBIN 11.4 g/dL (14.0-18.0); LYMPHOCYTES # (AUTO) 1.1 K/uL (1.0-5.5); LYMPHOCYTES % (AUTO) 16.8 % (20.5-51.5); MEAN CORPUSCULAR HEMOGLOBIN 33 pg (27-31); MEAN CORPUSCULAR HGB CONC 35 % (32-36); MEAN CORPUSCULAR VOLUME 95 fL (79.0-98.0); MONOCYTES # (AUTO) 0.2 K/uL (0.0-1.0); MONOCYTES % (AUTO) 3.5 % (1.7-9.3); NEUTROPHILS # (AUTO) 5.1 K/uL (1.8-7.7); NEUTROPHILS % (AUTO) 78.8 % (40.0-70.0); PLATELET COUNT (AUTO) 256 K/uL (130-430); RED BLOOD CELL COUNT(AUTO) 3.49 MIL/uL (4.2-6.2); RED CELL DISTRIBUTION WIDTH 13.5 % (9.0-15.0); WHITE BLOOD COUNT (AUTO) 6.4 K/uL (4.8-10.8)
[2017-08-15 17:02] LABS: CALCIUM 8.5 mg/dL (8.4-11.0); CREATININE 0.71 mg/dL (0.55-1.30); POTASSIUM 3.6 mmol/L (3.5-5.1)
[2017-08-15 17:07] LABS: ALBUMIN 3.4 g/dL (3.4-4.8); PROTHROMBIN TIME 10.6 SECS (9.5-12.5); TOTAL BILIRUBIN 1.2 mg/dL (0.0-1.0)
[2017-08-15 17:50] LABS: BILIRUBIN,URINE NEGATIVE (NEGATIVE); BLOOD, URINE NEGATIVE (NEGATIVE); CLARITY/URINE CLEAR (CLEAR); COLOR,URINE YELLOW (YELLOW); GLUCOSE,URINE 2+ (NEGATIVE); KETONES,URINE 2+ (NEGATIVE); LEUKOCYTE ESTERASE ,URINE NEGATIVE (NEGATIVE); NITRITE, URINE NEGATIVE (NEGATIVE); PH,URINE 8.5 (5.0-8.0); PROTEIN URINE TRACE (NEGATIVE)
[2017-08-15 18:05] LABS: BACTERIA,URINE FEW /HPF (None Seen); RBC,URINE 0-3 /HPF (0-3)
[2017-08-15 18:06] LABS: MUCUS,URINE 1+ /LPF (None Seen)
[2017-08-15] MEDS ORDERED: MORPHINE 4 MG/ML INJ. SYRINGE IVP ONE (18:30)
[2017-08-15] MEDS ORDERED: DEXTROSE 50% JECT 50 ML DISP.SYRIN IVP PRN (19:15)
[2017-08-15] MEDS ORDERED: ONDANSETRON 4 MG ODT TAB PO PRN (19:15)
[2017-08-15 19:25] VITALS: BP_SYST 157
[2017-08-15] MEDS: NACL 0.9% 1,000 ML IV SCH (19:49)
[2017-08-15] MEDS: SUCRALFATE 1 GM TABLET PO SCH (20:43)
[2017-08-15] MEDS: INSULIN REGULAR, HUMAN 100 UNITS/ML, 10 ML VIAL (novoLIN R) SUBCUT PRN (20:48)
[2017-08-15 22:19] VITALS: BP_SYST 163
[2017-08-15] MEDS: HYDROmorphone 1 MG INJ. 1 MG/ML AMPUL IM PRN (22:19)
[2017-08-16] MEDS: INSULIN REGULAR, HUMAN 100 UNITS/ML, 10 ML VIAL (novoLIN R) SUBCUT PRN ×2 (00:18→06:13)
[2017-08-16] MEDS: METOCLOPRAMIDE HCL 10 MG/2 ML VIAL IVP PRN ×2 (00:19→10:41)
[2017-08-16] MEDS: NACL 0.9% 1,000 ML IV SCH ×2 (03:29→09:38)
[2017-08-16 04:58] VITALS: BP_SYST 132
[2017-08-16] MEDS: SUCRALFATE 1 GM TABLET PO SCH ×2 (06:02→10:41)
[2017-08-16] MEDS: HYDROmorphone 1 MG INJ. 1 MG/ML AMPUL IM PRN ×2 (06:16→10:42)
[2017-08-16 06:24] LABS: BASOPHILS % (AUTO) 0.4 % (0.0-2.0); EOSINOPHILS % (AUTO) 0.2 % (0.0-4.0); HEMATOCRIT 34.6 % (36-54); HEMOGLOBIN 12.3 g/dL (14.0-18.0); LYMPHOCYTES # (AUTO) 1.7 K/uL (1.0-5.5); MEAN CORPUSCULAR HEMOGLOBIN 34 pg (27-31); MEAN CORPUSCULAR HGB CONC 36 % (32-36); MEAN CORPUSCULAR VOLUME 95 fL (79.0-98.0); MONOCYTES # (AUTO) 0.4 K/uL (0.0-1.0); MONOCYTES % (AUTO) 5.3 % (1.7-9.3); NEUTROPHILS # (AUTO) 4.8 K/uL (1.8-7.7); NEUTROPHILS % (AUTO) 70.1 % (40.0-70.0); PLATELET COUNT (AUTO) 229 K/uL (130-430); RED BLOOD CELL COUNT(AUTO) 3.66 MIL/uL (4.2-6.2); RED CELL DISTRIBUTION WIDTH 13.4 % (9.0-15.0); WHITE BLOOD COUNT (AUTO) 6.9 K/uL (4.8-10.8)
[2017-08-16 06:39] LABS: ALBUMIN 3.2 g/dL (3.4-4.8); CALCIUM 8.3 mg/dL (8.4-11.0); CREATININE 0.63 mg/dL (0.55-1.30); POTASSIUM 3.5 mmol/L (3.5-5.1); TOTAL BILIRUBIN 1.2 mg/dL (0.0-1.0)
[2017-08-16 08:55] VITALS: BP_SYST 133
[2017-08-16] MEDS ORDERED: PANTOPRAZOLE SODIUM 40 MG TAB PO SCH (09:00)
[2017-08-16 12:00] VITALS: BP_SYST 144
== END 2017-08-16 11:45 | disposition left against medical advice (07) | DRG 48 ==
LOC: SED 15:38 → SMU 19:03
PROVIDERS: ADMIT Internal Medicine Hospice and Palliative Medicine; ATTEND Internal Medicine Hospice and Palliative Medicine
DX: E11.43 Type 2 diabetes mellitus with diabetic autonomic (poly)neuropathy (principal); K31.84 Gastroparesis; F12.10 Cannabis abuse, uncomplicated; B19.20 Unspecified viral hepatitis C without hepatic coma; Z53.21 Procedure and treatment not carried out due to patient leaving prior to being seen by health care provider; Z88.8 Allergy status to other drugs, medicaments and biological substances; Z76.5 Malingerer [conscious simulation]; Z86.19 Personal history of other infectious and parasitic diseases; Z79.4 Long term (current) use of insulin; Z79.899 Other long term (current) drug therapy; E86.0 Dehydration
CPT/HCPCS: 36415; 80053; 81000-TC; 82150-TC; 82962; 83690-TC; 85025; 85610-TC; 85730-TC; 87081; 96361; 96374; 96375; 96376; 99285; J1170; J1815; J2270; J2405; J2765; J7030

== ENCOUNTER 2017-08-23 09:06 | Emergency (ER) | payer MEDICAID ==
[~2017-08-23] VITALS: Ht 188 cm; Wt 77.1 kg
[2017-08-23 09:11] VITALS: BP_SYST 131
[2017-08-23 09:43] LABS: BASOPHILS % (AUTO) 0.5 % (0.0-2.0); EOSINOPHILS % (AUTO) 0.7 % (0.0-4.0); HEMATOCRIT 37.7 % (36-54); HEMOGLOBIN 12.8 g/dL (14.0-18.0); LYMPHOCYTES # (AUTO) 1.1 K/uL (1.0-5.5); LYMPHOCYTES % (AUTO) 20.4 % (20.5-51.5); MEAN CORPUSCULAR HEMOGLOBIN 32 pg (27-31); MEAN CORPUSCULAR HGB CONC 34 % (32-36); MEAN CORPUSCULAR VOLUME 95 fL (79.0-98.0); MONOCYTES # (AUTO) 0.3 K/uL (0.0-1.0); NEUTROPHILS # (AUTO) 4.1 K/uL (1.8-7.7); NEUTROPHILS % (AUTO) 73.4 % (40.0-70.0); PLATELET COUNT (AUTO) 266 K/uL (130-430); RED BLOOD CELL COUNT(AUTO) 3.95 MIL/uL (4.2-6.2); RED CELL DISTRIBUTION WIDTH 13.1 % (9.0-15.0); WHITE BLOOD COUNT (AUTO) 5.5 K/uL (4.8-10.8)
[2017-08-23] MEDS ORDERED: NS 500 ML IV SCH (09:47)
[2017-08-23 09:48] LABS: CREATININE 0.77 mg/dL (0.55-1.30); POTASSIUM 4.5 mmol/L (3.5-5.1)
[2017-08-23 09:52] LABS: PROTHROMBIN TIME 9.8 SECS (9.5-12.5)
[2017-08-23 09:54] LABS: TOTAL BILIRUBIN 1.4 mg/dL (0.0-1.0)
[2017-08-23] MEDS ORDERED: ONDANSETRON HCL 4 MG/2 ML VIAL IVP ONE (10:00)
[2017-08-23] MEDS ORDERED: FAMOTIDINE PF 20 MG/2 ML VIAL IVP ONE (10:00)
[2017-08-23 10:10] LABS: BILIRUBIN,URINE NEGATIVE (NEGATIVE); BLOOD, URINE NEGATIVE (NEGATIVE); CLARITY/URINE CLEAR (CLEAR); COLOR,URINE YELLOW (YELLOW); GLUCOSE,URINE 2+ (NEGATIVE); KETONES,URINE TRACE (NEGATIVE); LEUKOCYTE ESTERASE ,URINE NEGATIVE (NEGATIVE); NITRITE, URINE NEGATIVE (NEGATIVE); PROTEIN URINE NEGATIVE (NEGATIVE)
[2017-08-23 10:11] LABS: UROBILINOGEN,URINE >=8 (0.2-1.0)
[2017-08-23 10:20] LABS: RBC,URINE 0-3 /HPF (0-3)
[2017-08-23 10:21] LABS: BACTERIA,URINE FEW /HPF (None Seen); MUCUS,URINE 1+ /LPF (None Seen); WBC,URINE 0-3 /HPF (0-3)
[2017-08-23] MEDS ORDERED: MORPHINE 4 MG/ML INJ. SYRINGE IVP ONE (10:30)
[2017-08-23] MEDS ORDERED: MORPHINE SULFATE 10 MG/ML VIAL ONE (10:43)
[2017-08-23] MEDS ORDERED: NACL 0.9% 1,000 ML IV ONE (11:30)
[2017-08-23 12:18] LABS: CALCIUM 8.7 mg/dL (8.4-11.0); CREATININE 0.65 mg/dL (0.55-1.30); POTASSIUM 4.8 mmol/L (3.5-5.1)
[2017-08-23 13:27] VITALS: BP_SYST 128
[2017-08-23] MEDS ORDERED: NORMAL SALINE 5 ML DISP.SYRIN IVF SCH (14:00)
== END 2017-08-23 13:27 | disposition home or self-care (01) ==
LOC: SED 09:06
DX: K92.0 Hematemesis (principal); E87.1 Hypo-osmolality and hyponatremia; Z76.5 Malingerer [conscious simulation]; E11.9 Type 2 diabetes mellitus without complications; Z86.19 Personal history of other infectious and parasitic diseases; Z88.8 Allergy status to other drugs, medicaments and biological substances
CPT/HCPCS: 36415; 80048; 80053; 81000; 82150; 83690; 85025; 85610; 85730; 96361; 96374; 96375; 99284; J2270; J2405; J3490; J7030; J7040

== ENCOUNTER 2017-10-06 16:43 | Emergency (ER) | payer MEDICAID ==
[~2017-10-06] VITALS: Ht 188 cm; Wt 77.1 kg
[2017-10-06 16:47] VITALS: BP_SYST 109
[2017-10-06] MEDS ORDERED: NACL 0.9% 1,000 ML IV ONE ×2 (17:02→17:15)
[2017-10-06 17:13] LABS: BILIRUBIN,URINE NEGATIVE (NEGATIVE); BLOOD, URINE NEGATIVE (NEGATIVE); CLARITY/URINE CLEAR (CLEAR); COLOR,URINE YELLOW (YELLOW); GLUCOSE,URINE 3+ (NEGATIVE); KETONES,URINE TRACE (NEGATIVE); LEUKOCYTE ESTERASE ,URINE NEGATIVE (NEGATIVE); NITRITE, URINE NEGATIVE (NEGATIVE); PH,URINE 6.5 (5.0-8.0); PROTEIN URINE NEGATIVE (NEGATIVE)
[2017-10-06 17:14] LABS: BASOPHILS % (AUTO) 0.5 % (0.0-2.0); EOSINOPHILS % (AUTO) 0.2 % (0.0-4.0); HEMATOCRIT 33.7 % (36-54); HEMOGLOBIN 11.8 g/dL (14.0-18.0); LYMPHOCYTES # (AUTO) 1.5 K/uL (1.0-5.5); LYMPHOCYTES % (AUTO) 17.4 % (20.5-51.5); MEAN CORPUSCULAR HEMOGLOBIN 32 pg (27-31); MEAN CORPUSCULAR HGB CONC 35 % (32-36); MEAN CORPUSCULAR VOLUME 92 fL (79.0-98.0); MONOCYTES # (AUTO) 0.2 K/uL (0.0-1.0); MONOCYTES % (AUTO) 2.5 % (1.7-9.3); NEUTROPHILS # (AUTO) 7.1 K/uL (1.8-7.7); NEUTROPHILS % (AUTO) 79.4 % (40.0-70.0); PLATELET COUNT (AUTO) 342 K/uL (130-430); RED BLOOD CELL COUNT(AUTO) 3.68 MIL/uL (4.2-6.2); RED CELL DISTRIBUTION WIDTH 13.3 % (9.0-15.0); WHITE BLOOD COUNT (AUTO) 8.8 K/uL (4.8-10.8)
[2017-10-06] MEDS ORDERED: KETOROLAC TROMETHAMINE 30 MG VIAL IVP ONE (17:15)
[2017-10-06] MEDS ORDERED: DIPHENHYDRAMINE INJ 50 MG/ML VIAL IVP ONE (17:15)
[2017-10-06] MEDS ORDERED: PROCHLORPERAZINE EDISYLATE 10 MG/2 ML VIAL IVP ONE (17:15)
[2017-10-06 17:20] LABS: BACTERIA,URINE None Seen /HPF (None Seen); RBC,URINE 0-3 /HPF (0-3); WBC,URINE 0-3 /HPF (0-3)
[2017-10-06 17:29] LABS: CALCIUM 8.9 mg/dL (8.4-11.0); CREATININE 1.22 mg/dL (0.55-1.30)
[2017-10-06 17:34] LABS: ALBUMIN 3.6 g/dL (3.4-4.8); TOTAL BILIRUBIN 1.1 mg/dL (0.0-1.0)
[2017-10-06] MEDS ORDERED: fentaNYL CITRATE/PF 100 MCG/2 ML AMP IVP ONE (18:00)
[2017-10-06] MEDS ORDERED: INSULIN REGULAR, HUMAN 10 UNITS/0.1 ML INJ IVP ONE (18:00)
[2017-10-06] MEDS ORDERED: METOCLOPRAMIDE HCL 10 MG/2 ML VIAL IVP ONE (18:00)
[2017-10-06 20:28] VITALS: BP_SYST 116
== END 2017-10-06 20:28 | disposition home or self-care (01) ==
LOC: SED 16:43
DX: E10.43 Type 1 diabetes mellitus with diabetic autonomic (poly)neuropathy (principal); E10.65 Type 1 diabetes mellitus with hyperglycemia; K31.84 Gastroparesis; Z86.19 Personal history of other infectious and parasitic diseases; Z88.8 Allergy status to other drugs, medicaments and biological substances; Z79.4 Long term (current) use of insulin
CPT/HCPCS: 36415; 80053; 81000; 82962; 83690; 85025; 96361; 96374; 96375; 99284; J0780; J1200; J1885; J2765; J3010; J7030; 99285; J1815

== ENCOUNTER 2017-10-21 15:28 | Emergency (ER) | payer MEDICAID ==
[~2017-10-21] VITALS: Ht 188 cm; Wt 77.1 kg
[2017-10-21 15:28] VITALS: BP_SYST 124
--- NOTE | 2017-10-21 15:28 | NUR ---
Patient triaged and placed in waiting room. VSS and patient appears in no acute distress at this time. Accompanied by SELF, awaiting available bed, and MD notified of need for MSE.
--- NOTE | 2017-10-21 15:50 | NUR ---
Pt stated that he has 10/10 abd pain for the past 2 days. Pt stated that he does not know why the pain started, nor what makes it better or worse. Pt laying in bed. Vitasl Signs Stable. Pt stated that he has hx of type 1 DM, Hep C, Gastro "issues". No signs of injuries or signs of distress. Will continue to monitor.
--- NOTE | 2017-10-21 16:25 | NUR ---
ER at bedside examining patient.
[2017-10-21] MEDS ORDERED: MORPHINE 2 MG/ML INJ. SYRINGE IVP ONE (16:30)
[2017-10-21] MEDS ORDERED: NACL 0.9% 1,000 ML IV ONE (16:30)
[2017-10-21] MEDS ORDERED: ONDANSETRON HCL 4 MG/2 ML VIAL IVP ONE (16:30)
[2017-10-21 17:05] LABS: BARBITURATE, URINE NEGATIVE (NEG <=200); BENZODIAZEPINE, URINE NEGATIVE (NEG <=150); CANNABINOID, URINE POSITIVE (NEG <=50); COCAINE, URINE NEGATIVE (NEG <=150); METHAMPHETAMINES SCREEN,URINE POSITIVE (NEG <=500); OPIATE, URINE NEGATIVE (NEG <=100); PHENCYCLIDINE SCREEN,URINE NEGATIVE (NEG <=25); UR TRICYCLIC ANTIDEPRESSANTS NEGATIVE (NEG <=300); URINE AMPHETAMINE NEGATIVE (NEG <=500); URINE METHADONE NEGATIVE (NEG <=200); URINE OXYCODONE SCREEN NEGATIVE (NEG <=100); URINE PROPOXYPHENE SCREEN NEGATIVE (NEG <=300)
[2017-10-21 17:12] LABS: BASOPHILS # (AUTO) 0.1 K/uL (0.0-0.2); BASOPHILS % (AUTO) 1.2 % (0.0-2.0); EOSINOPHILS % (AUTO) 0.4 % (0.0-4.0); HEMATOCRIT 35.3 % (36-54); HEMOGLOBIN 12.1 g/dL (14.0-18.0); LYMPHOCYTES # (AUTO) 1.2 K/uL (1.0-5.5); LYMPHOCYTES % (AUTO) 22.7 % (20.5-51.5); MEAN CORPUSCULAR HEMOGLOBIN 32 pg (27-31); MEAN CORPUSCULAR HGB CONC 34 % (32-36); MEAN CORPUSCULAR VOLUME 94 fL (79.0-98.0); MONOCYTES # (AUTO) 0.2 K/uL (0.0-1.0); MONOCYTES % (AUTO) 4.4 % (1.7-9.3); NEUTROPHILS # (AUTO) 3.6 K/uL (1.8-7.7); NEUTROPHILS % (AUTO) 71.3 % (40.0-70.0); PLATELET COUNT (AUTO) 247 K/uL (130-430); RED BLOOD CELL COUNT(AUTO) 3.77 MIL/uL (4.2-6.2); RED CELL DISTRIBUTION WIDTH 13.4 % (9.0-15.0); WHITE BLOOD COUNT (AUTO) 5.1 K/uL (4.8-10.8)
[2017-10-21 17:25] LABS: CALCIUM 9.2 mg/dL (8.4-11.0); CREATININE 0.79 mg/dL (0.55-1.30); POTASSIUM 4.5 mmol/L (3.5-5.1)
[2017-10-21 17:29] LABS: ALBUMIN 3.7 g/dL (3.4-4.8); TOTAL BILIRUBIN 1.7 mg/dL (0.0-1.0)
[2017-10-21 18:05] VITALS: BP_SYST 135
--- NOTE | 2017-10-21 18:05 | NUR ---
Patient given written and verbal discharge instructions and verbalizes understanding. ER MD discussed with patient the results and treatment provided. Patient in stable condition. ID arm band removed. IV catheter removed intact and dressing applied, no active bleeding. Rx of Zofran given. Patient educated on pain management and to follow up with PMD. Pain Scale 5/10, pt stated that he is never not in pain. Opportunity for questions provided and answered.
== END 2017-10-21 18:05 | disposition home or self-care (01) ==
LOC: SED 15:28
DX: E10.43 Type 1 diabetes mellitus with diabetic autonomic (poly)neuropathy (principal); E10.65 Type 1 diabetes mellitus with hyperglycemia; K31.84 Gastroparesis; F15.10 Other stimulant abuse, uncomplicated; Z86.19 Personal history of other infectious and parasitic diseases; Z79.4 Long term (current) use of insulin; Z79.899 Other long term (current) drug therapy; Z88.8 Allergy status to other drugs, medicaments and biological substances
CPT/HCPCS: 36415; 80053; 80307; 83690; 85025; 96361; 96374; 96375; 99284; J2270; J2405; J7030

== ENCOUNTER 2017-10-23 08:58 | Inpatient (IN) | payer MEDICAID ==
[~2017-10-23] VITALS: Ht 188 cm; Wt 68.9 kg
[2017-10-23 09:18] VITALS: BP_SYST 132
--- NOTE | 2017-10-23 09:21 | NUR ---
Ambulatory to bed 8, report given to KRUPA Servin
--- NOTE | 2017-10-23 09:25 | NUR ---
Pt is AAO x 4, ambulatory, complains of abdominal pain for 4 days. Pt states he has been nauseous and has vomited a few times. Pt denies fever or diarrhea. No other injuries/complaints per patient or noted.
--- NOTE | 2017-10-23 09:30 | NUR ---
ER Dr. Royal at bedside examining patient.
[2017-10-23] MEDS ORDERED: DIPHENHYDRAMINE INJ 50 MG/ML VIAL IVP ONE (10:00)
[2017-10-23] MEDS ORDERED: NACL 0.9% 1,000 ML IV ONE ×2 (10:00→11:45)
[2017-10-23] MEDS ORDERED: ONDANSETRON HCL 4 MG/2 ML VIAL IVP ONE (10:00)
[2017-10-23] MEDS ORDERED: MORPHINE 4 MG/ML INJ. SYRINGE IVP ONE (10:00)
--- NOTE | 2017-10-23 10:10 | NUR ---
Pt went to radiology in stable condition.
--- NOTE | 2017-10-23 10:10 | NUR ---
# 20 gauge angiocath placed to RAC. Use of asceptic technique. Opsite placed over site. Blood return noted. Blood for lab drawn from site. Flushed with 10 cc of normal saline. No evidence of infiltration noted. Patient tolerated well.
[2017-10-23 10:12] LABS: BILIRUBIN,URINE NEGATIVE (NEGATIVE); BLOOD, URINE NEGATIVE (NEGATIVE); CLARITY/URINE CLEAR (CLEAR); COLOR,URINE YELLOW (YELLOW); GLUCOSE,URINE 3+ (NEGATIVE); KETONES,URINE 1+ (NEGATIVE); LEUKOCYTE ESTERASE ,URINE NEGATIVE (NEGATIVE); NITRITE, URINE NEGATIVE (NEGATIVE); PH,URINE 7.5 (5.0-8.0); PROTEIN URINE NEGATIVE (NEGATIVE)
--- NOTE | 2017-10-23 10:21 | NUR ---
Pt returned from radiology in stable condition.
[2017-10-23 10:24] LABS: BACTERIA,URINE FEW /HPF (None Seen); RBC,URINE 0-3 /HPF (0-3); WBC,URINE 0-3 /HPF (0-3)
[2017-10-23 10:30] LABS: BASOPHILS % (AUTO) 0.3 % (0.0-2.0); EOSINOPHILS % (AUTO) 0.2 % (0.0-4.0); HEMATOCRIT 37.2 % (36-54); HEMOGLOBIN 12.8 g/dL (14.0-18.0); LYMPHOCYTES # (AUTO) 1.2 K/uL (1.0-5.5); LYMPHOCYTES % (AUTO) 17.8 % (20.5-51.5); MEAN CORPUSCULAR HEMOGLOBIN 32 pg (27-31); MEAN CORPUSCULAR HGB CONC 35 % (32-36); MEAN CORPUSCULAR VOLUME 94 fL (79.0-98.0); MONOCYTES # (AUTO) 0.3 K/uL (0.0-1.0); MONOCYTES % (AUTO) 4.2 % (1.7-9.3); NEUTROPHILS # (AUTO) 5.5 K/uL (1.8-7.7); NEUTROPHILS % (AUTO) 77.5 % (40.0-70.0); PLATELET COUNT (AUTO) 228 K/uL (130-430); RED BLOOD CELL COUNT(AUTO) 3.97 MIL/uL (4.2-6.2); RED CELL DISTRIBUTION WIDTH 13.2 % (9.0-15.0)
[2017-10-23 10:42] LABS: PROTHROMBIN TIME 10.4 SECS (9.5-12.5)
[2017-10-23 10:52] LABS: CALCIUM 9.2 mg/dL (8.4-11.0); CREATININE 0.9 mg/dL (0.55-1.30); POTASSIUM 4.2 mmol/L (3.5-5.1)
[2017-10-23 10:57] LABS: ALBUMIN 4.1 g/dL (3.4-4.8); TOTAL BILIRUBIN 2.1 mg/dL (0.0-1.0)
--- NOTE | 2017-10-23 11:20 | NUR ---
Pt resting comfortably in hospital bed. No acute distress. Will continue to monitor.
--- NOTE | 2017-10-23 11:38 | NUR ---
Medication reconciliation completed with information provided by patient. Any prior medication reconciliation on file was reviewed and corrected.
[2017-10-23] MEDS ORDERED: INSULIN REGULAR, HUMAN 10 UNITS/0.1 ML INJ IVP ONE (11:45)
[2017-10-23] MEDS ORDERED: ACETAMINOPHEN 325 MG TABLET PO PRN (13:00)
--- NOTE | 2017-10-23 13:27 | NUR ---
Patient will be admitted to care of Dr. Meneses. Admitted to Med/Surg unit. Will go to room 101B. Belongings list completed. Summary report printed. Phone report given to KRUPA Kim.
--- NOTE | 2017-10-23 13:35 | NUR ---
NOTES RECEIVED PATIENT FROM ER VIA GURNEY. PATIENT IS AWAKE, A/Ox4. VERBALLY RESPONSIVE. ABLE TO MAKE NEEDS KNOWN. PATIENT C/O ABD PAIN, WILL MEDICATE. ON ROOM AIR. NO ACUTE DISTRESS. NO SOB. RESPIRATION EVEN AND UNLABORED. SKIN WARM AND DRY. IV SITE TO RAC 20G INTACT/PATENT/CLEAN/DRY WITH NO S/SX INFECTION/INFILTRATION NOTED. ORIENTED PATIENT TO CALL LIGHT AND TO USE FOR ASSISTANCE, PATIENT VERBALIZED UNDERSTANDING. ALL NEEDS MET. BED IN LOW AND LOCKED POSITION. CALL LIGHT IN REACH. SIDERAIL UP x2. BED ALARM ON. CALL LIGHT IN REACH. CONTINUE TO MONITOR. CONT WITH SAFETY/FALL RISK PRECAUTION.
[2017-10-23 13:37] VITALS: BP_SYST 161
[2017-10-23] MEDS: ONDANSETRON HCL 4 MG/2 ML VIAL IVP PRN ×3 (13:57→22:00)
[2017-10-23] MEDS: MORPHINE 2 MG/ML INJ. SYRINGE IVP PRN ×2 (13:58→18:00)
[2017-10-23 14:15] LABS: FREE T4 (FREE THYROXINE) 0.8 ng/dL (0.6-1.6); PHOSPHORUS 3.3 mg/dL (2.7-4.5); THYROID STIMULATING HORMONE 0.13 uIu/mL (0.34-4.82)
--- NOTE | 2017-10-23 15:15 | NUR ---
NOTES PATIENT RESTING IN BED, EASILY AROUSABLE. STABLE. NO ACUTE DISTRESS. NO SOB. RESPIRATION EVEN AND UNLABORED. PER PATIENT ALL NEEDS MET AND PATIENT WANTS PAIN MEDS WHEN NEXT DOSE IS DUE TO BE GIVEN. CONTINUE TO MONITOR. CALL LIGHT IN REACH.
[2017-10-23 15:20] VITALS: BP_SYST 121
[2017-10-23] MEDS: NACL 0.9% 1,000 ML IV SCH (15:41)
--- NOTE | 2017-10-23 17:04 | NUR ---
NOTES PATIENT ASLEEP IN BED. NO ACUTE DISTRESS. RISE AND FALL OF CHEST NOTED. NO S/SX PAIN NOTED. IVF INFUSING AND PATIENT BECKI WELL. ALL NEEDS MET. CONTINUE TO MONITOR. CALL LIGHT IN REACH.
--- NOTE | 2017-10-23 18:40 | NUR ---
DR.GEISE KENRICK HUBBARD REGARDING UA RESULT AND PATIENT DM. Addendum: 10/23/17 at 2031 by Katia Corley RN DM, PATIENT HAS NO SLIDING SCALE.
--- NOTE | 2017-10-23 18:50 | NUR ---
S/W AND INFORMED OF UA RESULT AND THAT PATIENT IS DIABETIC. PER , HE WILL PUT IN ORDERS.
--- NOTE | 2017-10-23 19:00 | NUR ---
CLOSING NOTES PATIENT STABLE. ABLE TO MAKE NEEDS KNOWN. NO ACUTE DISTRESS. NO SOB. RESPIRATION EVEN AND UNLABORED. SKIN WARM AND DRY TO TOUCH. ALL NEEDS MET AT THIS TIME. BED IN LOW AND LOCKED POSITION. SIDERAIL UP x2. CALL LIGHT IN REACH. WILL ENDORSE TO ONCOMING SHIFT.
--- NOTE | 2017-10-23 19:59 | NUR ---
OPENING NOTE PT RESTING IN BED, BREATHING IS EVEN AND UNLABORED ON ROOM AIR W/ NO SIGNS OF DISTRESS NOTED AT THIS TIME. IV SITE IS CLEAN, DRY AND INTACT W/ NO SIGNS OF REDNESS OR SWELLING AND IVF INFUSING WELL. PT C/O ACHING STOMACH PAIN 04/16. WILL CALL DOCTOR FOR ORDERS. BED IS LOCKED IN LOWEST POSITION, W/ 2 SIDE RAILS UP, CALL LIGHT W/ PT AND PT INSTRUCTED TO CALL IF ASSISTANCE NEEDED. WILL CONTINUE TO MONITOR PT.
[2017-10-23 20:00] VITALS: BP_SYST 148; BP_SYST 158
[2017-10-23] MEDS: DOCUSATE SODIUM 100 MG CAPSULE PO SCH ×2 (20:32→20:42)
[2017-10-23] MEDS: INSULIN REGULAR, HUMAN 100 UNITS/ML, 10 ML VIAL (novoLIN R) SUBCUT PRN (20:35)
--- NOTE | 2017-10-23 21:03 | NUR ---
paged paged for Dr Meneses, dialed . picked up call.
--- NOTE | 2017-10-23 21:06 | NUR ---
DR. THORNTON PHONE CALL - PAIN INFORMED DR. THORNTON THAT PT IS C/O ABDOMINAL PAIN OF 8/10, MORPHINE 2MG IVP GIVEN AT 1800 FOR MODERATE PAIN, BUT CURRENTLY NO ORDERS IN PLACE FOR SEVERE PAIN. NEW ORDERS RECEIVED, AND PER DR. THORNTON THESE NEW ORDERS ARE MAXIMUM PAIN COVERAGE HE WILL ORDER.
[2017-10-23] MEDS: METOCLOPRAMIDE HCL 10 MG TABLET PO SCH (21:58)
--- NOTE | 2017-10-23 21:58 | NUR ---
ROUNDS PT RESTING IN BED W/ NO SIGNS OF DISTRESS NOTED AT THIS TIME. PRN MORPHINE ADMINISTERED FOR PT'S UPPER ABDOMINAL PAIN, RATED 8/10 AND ZOFRAN FOR PT'S NAUSEA. DUE MEDICATION ALSO ADMINISTERED AND EDUCATION PROVIDED TO PT REGARDING USE AND POSSIBLE SIDE EFFECTS. CONFIRMED CALL LIGHT W/ PT AND INSTRUCTED PT TO CALL IF HE NEEDS TO GET UP OR NEEDS ASSISTANCE, MORPHINE MAY CAUSE DIZZINESS. TURNED BED ALARM ON FOR SAFETY AND PT ASKED THAT I TURN IT OFF/REFUSES HAVING BED ALARM ON, AND STATES HE WILL CALL FOR ASSISTANCE. BED IS LOCKED IN LOWEST POSITION W/ 2 SIDE RAILS UP. WILL REASSESS PAIN AND CONTINUE TO MONITOR PT.
[2017-10-23] MEDS: MORPHINE 4 MG/ML INJ. SYRINGE IVP PRN (22:02)
--- NOTE | 2017-10-24 00:01 | NUR ---
ROUNDS PT IS SLEEPING IN BED W/ NO SIGNS OF DISTRESS NOTED AT THIS TIME. SAFETY MEASURES IN PLACE AND CALL LIGHT W/ PT. WILL CONTINUE TO MONITOR.
[2017-10-24 00:08] VITALS: BP_SYST 116
[2017-10-24] MEDS: ONDANSETRON HCL 4 MG/2 ML VIAL IVP PRN ×6 (02:14→22:44)
[2017-10-24] MEDS: MORPHINE 4 MG/ML INJ. SYRINGE IVP PRN ×6 (02:15→22:47)
--- NOTE | 2017-10-24 02:15 | NUR ---
ROUNDS PT RESTING IN BED, W/ NO SIGNS OF DISTRESS NOTED AT THIS TIME. PT C/O ABDOMINAL PAIN 05/17 AND REQUESTING PRN MORPHINE AND ZOFRAN. ADMINISTERED AND PROVIDED PT EDUCATION REGARDING MEDICATIONS USE AND POSSIBLE SIDE EFFECTS. SAFETY MEASURES IN PLACE, CALL LIGHT W/ PT AND WILL CONTINUE TO MONITOR PT.
--- NOTE | 2017-10-24 04:10 | NUR ---
ROUNDS PT UP TO THE RESTROOM. NO SIGNS OF DISTRESS NOTED, SAFETY MEASURES IN PLACE AND CALL LIGHT W/ PT. WILL CONTINUE TO MONITOR PT.
[2017-10-24] MEDS: METOCLOPRAMIDE HCL 10 MG TABLET PO SCH ×3 (06:27→22:44)
[2017-10-24] MEDS: NACL 0.9% 1,000 ML IV SCH ×2 (06:28→22:55)
[2017-10-24 06:29] LABS: BASOPHILS % (AUTO) 0.5 % (0.0-2.0); EOSINOPHILS # (AUTO) 0.1 K/uL (0.0-0.4); HEMATOCRIT 34.7 % (36-54); HEMOGLOBIN 12.3 g/dL (14.0-18.0); LYMPHOCYTES # (AUTO) 3.2 K/uL (1.0-5.5); LYMPHOCYTES % (AUTO) 43.9 % (20.5-51.5); MEAN CORPUSCULAR HEMOGLOBIN 33 pg (27-31); MEAN CORPUSCULAR HGB CONC 35 % (32-36); MEAN CORPUSCULAR VOLUME 93 fL (79.0-98.0); MONOCYTES # (AUTO) 0.5 K/uL (0.0-1.0); NEUTROPHILS # (AUTO) 3.5 K/uL (1.8-7.7); NEUTROPHILS % (AUTO) 47.6 % (40.0-70.0); PLATELET COUNT (AUTO) 265 K/uL (130-430); RED BLOOD CELL COUNT(AUTO) 3.74 MIL/uL (4.2-6.2); RED CELL DISTRIBUTION WIDTH 13.2 % (9.0-15.0); WHITE BLOOD COUNT (AUTO) 7.3 K/uL (4.8-10.8)
[2017-10-24 06:39] LABS: CALCIUM 8.9 mg/dL (8.4-11.0); CREATININE 0.66 mg/dL (0.55-1.30); PHOSPHORUS 2.7 mg/dL (2.7-4.5); POTASSIUM 3.6 mmol/L (3.5-5.1)
--- NOTE | 2017-10-24 07:30 | NUR ---
CLOSING NOTE PT EATING BREAKFAST W/ NO SIGNS OF DISTRESS NOTED AND SCHEDULED INSULIN ADMINISTERED. PT'S NEEDS MET THROUGH SHIFT, SAFETY MEASURES IN PLACE, ENDORSED PT TO DAY SHIFT RN MAK AND SELENA WAHL.
[2017-10-24] MEDS: INSULIN ASPART 100 UNITS/ML, 10 ML VIAL SUBCUT SCH ×2 (07:31→16:55)
[2017-10-24 08:00] VITALS: BP_SYST 110
[2017-10-24 08:07] LABS: T4 (THYROXINE) 7.4 ug/dL (4.5-12.0)
[2017-10-24] MEDS: DOCUSATE SODIUM 100 MG CAPSULE PO SCH ×2 (08:48→21:26)
--- NOTE | 2017-10-24 08:50 | NUR ---
OPENING NOTE: MORNING REPORT WAS TAKEN FROM DIRECTOR OF MARKET RESEARCH NURSE. PATIENT WAS ASLEEP WITH NO SIGNS OF DISTRESS. VITAL SIGNS WERE TAKEN. PATIENT IS NOT COMPLAINING OF SHORTNESS OF BREATH OR PAIN AT THE MOMENT. PATIENT IS ON ROOM AIR. IV IS PATENT AND FLUIDS ARE INFUSING. PATIENT REQUESTS A VANILLA PUDDING. BED IS IN LOWEST POSITION WITH CALL LIGHT IN REACH AND SIDE RAILS ARE UP. WILL CONTINUE TO MONITOR.
[2017-10-24 11:26] VITALS: BP_SYST 113
[2017-10-24] MEDS ORDERED: cefTRIAXone 1 GM in D5W 50 ML IV ONE (11:30)
--- NOTE | 2017-10-24 11:50 | NUR ---
NOTE: PATIENT IS AWAKE EATING SANDWICH. BLOOD SUGAR WAS TAKEN AND WAS 119. NO INSULIN WAS NEEDED. PATIENT WAS COMPLAINING OF PAIN AND NAUSEA. MORPHINE AND ZOFRAN WERE GIVEN. PATIENT WAITING FOR LUNCH TO COME. WILL CONTINUE AND MONITOR.
--- NOTE | 2017-10-24 13:45 | NUR ---
NOTE: PATIENT IS RESTING IN BED. WAS WAITING FOR ANTIBIOTICS TO ARRIVE ON FLOOR TO GIVE. WAS GOING TO GIVE ANTIBIOTICS BUT PATIENT STATED HE DOESN'T THINK HE NEEDS THEM SO PATIENT REFUSED ANTIBIOTICS. WILL CONTINUE TO MONITOR.
[2017-10-24 15:22] VITALS: BP_SYST 108
--- NOTE | 2017-10-24 16:05 | NUR ---
NOTE: PATIENT IS RESTING IN BED. PATIENT HAS NO SIGNS OF DISTRESS. PATIENT NOT COMPLAINING OF SHORTNESS OF BREATH OR PAIN AT MOMENT. PATIENT REQUESTING TURKEY SANDWICH. CALLED DIETARY TO BRING HIM ONE. WILL CONTINUE TO MONITOR.
[2017-10-24] MEDS: INSULIN REGULAR, HUMAN 100 UNITS/ML, 10 ML VIAL (novoLIN R) SUBCUT PRN ×2 (16:56→21:30)
--- NOTE | 2017-10-24 17:08 | NUR ---
NOTE: PATIENT WAS RESTING IN BED. BLOOD SUGAR WAS TAKEN AND WAS 343. ASKED PATIENT WHEN HE HOLDS NOVOLOG AND PATIENT STATED HE HOLD IF BLOOD SUGAR IF LESS THAN 150. GAVE THE NOVOLOG BUT PATIENT REFUSED THE COVERAGE FOR THE 343 BLOOD SUGAR BECAUSE HE STATED THAT IS TOO MUCH FOR HIM. WILL CONTINUE TO MONITOR.
--- NOTE | 2017-10-24 18:57 | NUR ---
CLOSING NOTE: PATIENT IS AWAKE WATCHING TV. PATIENT IS COMPLAINING OF NAUSEA AND ABDOMINAL PAIN 9/10. ZOFRAN AND MORPHINE WERE GIVEN. IV IS PATENT AND RUNNING FLUIDS. PATIENT IS NOT COMPLAINING OF SHORTNESS OF BREATH. PATIENT IS ON ROOM AIR. BED IS IN LOWEST POSITION WITH CALL LIGHT IN REACH. WILL GIVE REPORT TO SPORTS MEDICINE SPECIALIST NURSE.
[2017-10-24 20:30] VITALS: BP_SYST 112
--- NOTE | 2017-10-24 20:30 | NUR ---
OPENING NOTE PT RESTING IN BED, BREATHING IS EVEN AND UNLABORED ON ROOM AIR W/ NO SIGNS OF DISTRESS NOTED AT THIS TIME. IV SITE IS CLEAN, DRY AND INTACT W/ NO SIGNS OF REDNESS OR SWELLING AND IVF INFUSING WELL. PT C/O ACHING STOMACH PAIN 04/16 AND INDICATES THAT HIS NEXT DOSE OF PRN MORPHINE WILL BE DUE AROUND 2300. BED IS LOCKED IN LOWEST POSITION, W/ 2 SIDE RAILS UP, CALL LIGHT W/ PT AND PT INSTRUCTED TO CALL IF ASSISTANCE NEEDED. WILL CONTINUE TO MONITOR PT.
--- NOTE | 2017-10-24 22:44 | NUR ---
ROUNDS PT RESTING IN BED WATCHING TELEVISION W/ NO SIGNS OF DISTRESS NOTED AT THIS TIME. ADMINISTERED DUE MEDICATIONS AND NEW BAG OF IVF HUNG. PROVIDED PT EDUCATION REGARDING MEDICATION USE AND POSSIBLE SIDE EFFECTS. SAFETY MEASURES IN PLACE, CALL LIGHT W/ PT AND WILL CONTINUE TO MONITOR PT.
--- NOTE | 2017-10-25 00:15 | NUR ---
ROUNDS PT RESTING IN BED W/ NO SIGNS OF DISTRESS NOTED. PROVIDED PT SNACKS, CRACKERS, PUDDING AND MILK, PER HIS REQUEST. SAFETY MEASURES IN PLACE, CALL LIGHT W/ PT AND WILL CONTINUE TO MONITOR PT.
[2017-10-25 00:36] VITALS: BP_SYST 122
--- NOTE | 2017-10-25 02:02 | NUR ---
ROUNDS PT APPEARS TO BE SLEEPING, RISE AND FALL OF CHEST NOTED, NO SIGNS OF DISTRESS NOTED. SAFETY MEASURES IN PLACE, CALL LIGHT W/ PT, WILL CONTINUE TO MONITOR PT.
[2017-10-25] MEDS: ONDANSETRON HCL 4 MG/2 ML VIAL IVP PRN ×3 (03:02→10:56)
[2017-10-25] MEDS: MORPHINE 4 MG/ML INJ. SYRINGE IVP PRN ×3 (03:03→10:56)
--- NOTE | 2017-10-25 04:35 | NUR ---
ROUNDS PT SLEEPING W/ NO SIGNS OF DISTRESS. SAFETY MEASURES IN PLACE, CALL LIGHT W/ PT, WILL CONTINUE TO MONITOR PT.
[2017-10-25] MEDS: METOCLOPRAMIDE HCL 10 MG TABLET PO SCH (06:50)
--- NOTE | 2017-10-25 07:00 | NUR ---
Closing Note Pt a/o x 4, resting in bed, w/ no signs of distress noted at this time. Pt's needs met through shift, safety measures in place, endorsed to day shift KRUPA Chambers.
[2017-10-25] MEDS: INSULIN REGULAR, HUMAN 100 UNITS/ML, 10 ML VIAL (novoLIN R) SUBCUT PRN (07:05)
[2017-10-25] MEDS: INSULIN ASPART 100 UNITS/ML, 10 ML VIAL SUBCUT SCH (07:06)
[2017-10-25 07:24] LABS: BASOPHILS % (AUTO) 0.4 % (0.0-2.0); EOSINOPHILS # (AUTO) 0.1 K/uL (0.0-0.4); EOSINOPHILS % (AUTO) 1.8 % (0.0-4.0); HEMATOCRIT 31.7 % (36-54); LYMPHOCYTES # (AUTO) 2.6 K/uL (1.0-5.5); LYMPHOCYTES % (AUTO) 45.6 % (20.5-51.5); MEAN CORPUSCULAR HEMOGLOBIN 32 pg (27-31); MEAN CORPUSCULAR HGB CONC 35 % (32-36); MEAN CORPUSCULAR VOLUME 93 fL (79.0-98.0); MONOCYTES # (AUTO) 0.4 K/uL (0.0-1.0); MONOCYTES % (AUTO) 7.4 % (1.7-9.3); NEUTROPHILS # (AUTO) 2.5 K/uL (1.8-7.7); NEUTROPHILS % (AUTO) 44.8 % (40.0-70.0); PLATELET COUNT (AUTO) 217 K/uL (130-430); RED CELL DISTRIBUTION WIDTH 13.3 % (9.0-15.0); WHITE BLOOD COUNT (AUTO) 5.6 K/uL (4.8-10.8)
--- NOTE | 2017-10-25 07:39 | NUR ---
OPENING NOTE: PATIENT IS AWAKE, SITTING IN BED WITH NO SIGNS OF DISTRESS. PATIENT STILL HAS SOME PAIN 5/10. PATIENT IS NOT COMPLAINING OF SHORTNESS OF BREATH. PATIENT IS ON ROOM AIR. PATIENT HAS FLUIDS INFUSING. PATIENT IS EATING BREAKFAST AT MOMENT. PATIENT HAS NO FURTHER REQUESTS AT MOMENT. PATIENT EDUCATED ON IMPORTANCE OF BED ALARM BUT PATIENT REFUSES TO USE IT BECAUSE HE GETS UP TO USE RESTROOM. PATIENT INFORMED TO STAY IN BED AND CALL ME IF HE NEEDS TO GET UP AND FEELS LIGHT HEADED. BED IS IN LOWEST POSITION WITH CALL LIGHT IN REACH. WILL CONTINUE TO MONITOR.
[2017-10-25 07:41] LABS: CALCIUM 8.6 mg/dL (8.4-11.0); CREATININE 0.56 mg/dL (0.55-1.30); PHOSPHORUS 2.8 mg/dL (2.7-4.5)
[2017-10-25 08:00] VITALS: BP_SYST 122
[2017-10-25 08:12] LABS: POTASSIUM 4.3 mmol/L (3.5-5.1)
[2017-10-25] MEDS: DOCUSATE SODIUM 100 MG CAPSULE PO SCH (08:45)
[2017-10-25] MEDS ORDERED: cefTRIAXone 1 GM in D5W 50 ML IV SCH (09:00)
[2017-10-25] MEDS ORDERED: NITR-85 PO (09:23)
[2017-10-25 09:35] VITALS: BP_SYST 122
--- NOTE | 2017-10-25 10:02 | NUR ---
NOTE: PATIENT IS ASLEEP WITH NO SIGNS OF DISTRESS. FLUIDS ARE INFUSING. CALL LIGHT IS IN REACH. WILL CONTINUE TO MONITOR.
--- NOTE | 2017-10-25 11:19 | NUR ---
NOTE: PATIENT WAS COMPLAINING OF PAIN. GAVE PAIN MEDICATION. BLOOD SUGAR WAS TAKEN AND WAS 132. SO NO INSULIN WAS NEEDED FOR COVERAGE. PATIENT ASKING FOR SANDWICH, SODA, AND PUDDING BUT DIETARY SAID THEY JUST GAVE HIM ONE SO WILL LET PATIENT KNOW TO WAIT FOR LUNCH.
--- NOTE | 2017-10-25 12:00 | NUR ---
DISCHARGE NOTE: PATIENT IS ALERT AND ORIENTED WITH NO SIGNS OF DISTRESS. PATIENT FINISHED LUNCH. PATIENT HAS NO PAIN AT MOMENT. PATIENT GIVEN DISCHARGE PAPERWORK AND ASKED IF HE HAS ANY QUESTIONS. PATIENT IS ON ROOM AIR WITH NO SHORTNESS OF BREATH. PATIENT'S IV WAS TAKEN OUT AND WRIST BAND CUT. PATIENT TOOK ALL BELONGINGS WITH HIM. PATIENT WANTED TO WALK OUT TO FRONT TO MEET FATHER.
[2017-10-25 12:36] VITALS: BP_SYST 115
== END 2017-10-25 12:15 | disposition home or self-care (01) | DRG 48 ==
LOC: SED 08:58 → SMU 12:53
PROVIDERS: ADMIT Family Medicine; ATTEND Family Medicine
DX: E11.43 Type 2 diabetes mellitus with diabetic autonomic (poly)neuropathy (principal); E87.1 Hypo-osmolality and hyponatremia; N39.0 Urinary tract infection, site not specified; K31.84 Gastroparesis; D63.8 Anemia in other chronic diseases classified elsewhere; G89.29 Other chronic pain
CPT/HCPCS: 36415; 74021; 80048; 80053; 80061; 81000-TC; 82150-TC; 82962; 83036; 83690-TC; 83735-TC; 83880; 84100-TC; 84436; 84439; 84443-TC; 84479; 84484; 85025; 85610-TC; 87081; 93005; 96361; 96374; 96375; 99285; J0696; J1200; J1815; J2270; J2405; J7030; J7060; J8597

== ENCOUNTER 2017-11-27 11:07 | Emergency (ER) | payer MEDICAID ==
[~2017-11-27] VITALS: Ht 188 cm; Wt 74.8 kg
[~2017-11-27 11:07] MED LIST changes: -DIF100 PO; -ERYT500T74 PO; +NITR-85 PO; +ONDA4TAB22 PO; -PRO40 PO; +TRAM50TA92 PO
[2017-11-27 11:18] VITALS: BP_SYST 161
[2017-11-27] MEDS ORDERED: MORPHINE 4 MG/ML INJ. SYRINGE IVP ONE (12:00)
[2017-11-27] MEDS ORDERED: DIPHENHYDRAMINE INJ 50 MG/ML VIAL IVP ONE (12:00)
[2017-11-27] MEDS ORDERED: NACL 0.9% 1,000 ML IV ONE ×2 (12:00→13:45)
[2017-11-27 12:40] LABS: BASOPHILS % (AUTO) 0.2 % (0.0-2.0); EOSINOPHILS % (AUTO) 0.1 % (0.0-4.0); HEMOGLOBIN 13.9 g/dL (14.0-18.0); LYMPHOCYTES # (AUTO) 1.3 K/uL (1.0-5.5); LYMPHOCYTES % (AUTO) 13.9 % (20.5-51.5); MEAN CORPUSCULAR HEMOGLOBIN 32 pg (27-31); MEAN CORPUSCULAR HGB CONC 35 % (32-36); MEAN CORPUSCULAR VOLUME 93 fL (79.0-98.0); MONOCYTES # (AUTO) 0.5 K/uL (0.0-1.0); MONOCYTES % (AUTO) 4.8 % (1.7-9.3); NEUTROPHILS # (AUTO) 7.8 K/uL (1.8-7.7); PLATELET COUNT (AUTO) 292 K/uL (130-430); RED BLOOD CELL COUNT(AUTO) 4.29 MIL/uL (4.2-6.2); RED CELL DISTRIBUTION WIDTH 13.1 % (9.0-15.0); WHITE BLOOD COUNT (AUTO) 9.6 K/uL (4.8-10.8)
[2017-11-27 12:52] LABS: INR 0.9 (0.80-1.20); PROTHROMBIN TIME 9.6 SECS (9.5-12.5)
[2017-11-27 12:56] LABS: ALANINE AMINOTRANSFERASE 62 U/L (12-78); ALBUMIN 4.3 g/dL (3.4-4.8); ANION GAP 9 (5-15); ASPARTATE AMINOTRANSFERASE 21 U/L (10-37); CREATININE 1.06 mg/dL (0.55-1.30); FREE T4 (FREE THYROXINE) 1.1 ng/dl (0.8-1.5); POTASSIUM 4.8 mmol/L (3.5-5.1); SODIUM SERUM 123 mmol/L (136-145); TOTAL BILIRUBIN 2.1 mg/dL (0.0-1.0); UREA NITROGEN, BLOOD 33 mg/dL (8-21)
[2017-11-27 13:02] LABS: CHLORIDE 85 mmol/L (98-107)
[2017-11-27 13:03] LABS: GLUCOSE 448 mg/dL (70-99)
[2017-11-27 13:04] LABS: ALCOHOL, BLOOD < 3 mg/dL (<10); GFR AFRICAN AMERICAN 108 mL/min (>90)
[2017-11-27] MEDS ORDERED: INSULIN REGULAR, HUMAN 10 UNITS/0.1 ML INJ IVP ONE (13:45)
[2017-11-27 14:02] LABS: BILIRUBIN,URINE NEGATIVE (NEGATIVE); BLOOD, URINE NEGATIVE (NEGATIVE); CLARITY/URINE CLEAR (CLEAR); COLOR,URINE YELLOW (YELLOW); GLUCOSE,URINE 3+ (NEGATIVE); KETONES,URINE 3+ (NEGATIVE); LEUKOCYTE ESTERASE ,URINE NEGATIVE (NEGATIVE); NITRITE, URINE NEGATIVE (NEGATIVE); PH,URINE 5.5 (5.0-8.0); PROTEIN URINE NEGATIVE (NEGATIVE); UROBILINOGEN,URINE 0.2 (0.2-1.0)
[2017-11-27 14:26] LABS: BACTERIA,URINE RARE /HPF (None Seen); RBC,URINE 0-3 /HPF (0-3); WBC,URINE 0-3 /HPF (0-3)
[2017-11-27 14:28] LABS: BARBITURATE, URINE NEGATIVE (NEG <=200); BENZODIAZEPINE, URINE NEGATIVE (NEG <=150); CANNABINOID, URINE POSITIVE (NEG <=50); COCAINE, URINE NEGATIVE (NEG <=150); METHAMPHETAMINES SCREEN,URINE NEGATIVE (NEG <=500); OPIATE, URINE POSITIVE (NEG <=100); PHENCYCLIDINE SCREEN,URINE NEGATIVE (NEG <=25); UR TRICYCLIC ANTIDEPRESSANTS NEGATIVE (NEG <=300); URINE AMPHETAMINE NEGATIVE (NEG <=500); URINE METHADONE NEGATIVE (NEG <=200); URINE OXYCODONE SCREEN NEGATIVE (NEG <=100); URINE PROPOXYPHENE SCREEN NEGATIVE (NEG <=300)
[2017-11-27] MEDS ORDERED: MORPHINE 2 MG/ML INJ. SYRINGE IVP ONE (16:30)
[2017-11-27 16:40] VITALS: BP_SYST 130
== END 2017-11-27 16:40 | disposition home or self-care (01) ==
LOC: SED 11:07
DX: E10.43 Type 1 diabetes mellitus with diabetic autonomic (poly)neuropathy (principal); K31.84 Gastroparesis; R03.0 Elevated blood-pressure reading, without diagnosis of hypertension; Z86.19 Personal history of other infectious and parasitic diseases; Z88.8 Allergy status to other drugs, medicaments and biological substances; Z79.4 Long term (current) use of insulin
CPT/HCPCS: 36415; 71045; 74018; 80053; 80307; 81000; 82140; 82962; 83605; 84439; 85025; 85610; 87040; 93005; 96361; 96374; 96375; 96376; 99285; G0482; J1200; J1815; J2270 ×2; J7030

== ENCOUNTER 2017-12-11 09:08 | Emergency (ER) | payer MEDICAID ==
[~2017-12-11] VITALS: Ht 188 cm; Wt 72.6 kg
[~2017-12-11 09:08] MED LIST changes: -TRAM50TA92 PO
[2017-12-11 09:12] VITALS: BP_SYST 128
[2017-12-11] MEDS ORDERED: NACL 0.9% 1,000 ML IV ONE ×3 (09:30→10:30)
[2017-12-11 09:42] LABS: BILIRUBIN,URINE NEGATIVE (NEGATIVE); BLOOD, URINE NEGATIVE (NEGATIVE); CLARITY/URINE CLEAR (CLEAR); COLOR,URINE YELLOW (YELLOW); GLUCOSE,URINE 3+ (NEGATIVE); KETONES,URINE 3+ (NEGATIVE); LEUKOCYTE ESTERASE ,URINE NEGATIVE (NEGATIVE); NITRITE, URINE NEGATIVE (NEGATIVE); PH,URINE 5.5 (5.0-8.0); PROTEIN URINE NEGATIVE (NEGATIVE); UROBILINOGEN,URINE 0.2 (0.2-1.0)
[2017-12-11] MEDS ORDERED: KETOROLAC TROMETHAMINE 30 MG VIAL IVP ONE (09:45)
[2017-12-11] MEDS ORDERED: ONDANSETRON HCL 4 MG/2 ML VIAL IVP ONE (09:45)
[2017-12-11 09:46] LABS: BASOPHILS # (AUTO) 0.2 K/uL (0.0-0.2); BASOPHILS % (AUTO) 1.4 % (0.0-2.0); HEMOGLOBIN 14.3 g/dL (14.0-18.0); LYMPHOCYTES # (AUTO) 1.7 K/uL (1.0-5.5); LYMPHOCYTES % (AUTO) 10.9 % (20.5-51.5); MEAN CORPUSCULAR HEMOGLOBIN 31 pg (27-31); MEAN CORPUSCULAR HGB CONC 33 % (32-36); MEAN CORPUSCULAR VOLUME 93 fL (79.0-98.0); MONOCYTES # (AUTO) 0.5 K/uL (0.0-1.0); MONOCYTES % (AUTO) 3.2 % (1.7-9.3); NEUTROPHILS # (AUTO) 13.1 K/uL (1.8-7.7); NEUTROPHILS % (AUTO) 84.5 % (40.0-70.0); PLATELET COUNT (AUTO) 347 K/uL (130-430); RED BLOOD CELL COUNT(AUTO) 4.63 MIL/uL (4.2-6.2); RED CELL DISTRIBUTION WIDTH 12.8 % (9.0-15.0); WHITE BLOOD COUNT (AUTO) 15.5 K/uL (4.8-10.8)
[2017-12-11 09:50] LABS: BACTERIA,URINE RARE /HPF (None Seen); RBC,URINE 0-3 /HPF (0-3); WBC,URINE NONE SEEN /HPF (0-3)
[2017-12-11 09:51] LABS: MUCUS,URINE None Seen /LPF (None Seen)
[2017-12-11 10:05] LABS: ANION GAP 20 (5-15); CALCIUM 9.2 mg/dL (8.4-11.0); CREATININE 1.26 mg/dL (0.55-1.30); POTASSIUM 4.7 mmol/L (3.5-5.1); SODIUM SERUM 125 mmol/L (136-145); UREA NITROGEN, BLOOD 36 mg/dL (8-21)
[2017-12-11 10:13] LABS: ALANINE AMINOTRANSFERASE 105 U/L (12-78); ALBUMIN 4.4 g/dL (3.4-4.8); AMYLASE 39 U/L (0-100); ASPARTATE AMINOTRANSFERASE 27 U/L (10-37); LIPASE 40 U/L (73-393); TOTAL BILIRUBIN 2.3 mg/dL (0.0-1.0)
[2017-12-11 10:15] LABS: CHLORIDE 83 mmol/L (98-107); GFR AFRICAN AMERICAN 88 mL/min (>90); GLUCOSE 495 mg/dL (70-99)
[2017-12-11] MEDS ORDERED: METOCLOPRAMIDE HCL 10 MG/2 ML VIAL IVP ONE (10:30)
[2017-12-11] MEDS ORDERED: INSULIN NPH/REGULAR 70-30, 100 UNITS/ML, 10 ML VIAL SUBCUT ONE (11:30)
[2017-12-11] MEDS ORDERED: OXYCODONE/ACETAMINOPHEN *10*mg/325 mg TABLET PO ONE (12:15)
[2017-12-11 12:17] LABS: BARBITURATE, URINE NEGATIVE (NEG <=200); BENZODIAZEPINE, URINE POSITIVE (NEG <=150); CANNABINOID, URINE NEGATIVE (NEG <=50); COCAINE, URINE NEGATIVE (NEG <=150); METHAMPHETAMINES SCREEN,URINE NEGATIVE (NEG <=500); OPIATE, URINE NEGATIVE (NEG <=100); PHENCYCLIDINE SCREEN,URINE NEGATIVE (NEG <=25); UR TRICYCLIC ANTIDEPRESSANTS NEGATIVE (NEG <=300); URINE AMPHETAMINE NEGATIVE (NEG <=500); URINE METHADONE NEGATIVE (NEG <=200); URINE OXYCODONE SCREEN NEGATIVE (NEG <=100); URINE PROPOXYPHENE SCREEN NEGATIVE (NEG <=300)
[2017-12-11 14:03] VITALS: BP_SYST 132
== END 2017-12-11 13:57 | disposition home or self-care (01) ==
LOC: SED 09:08
DX: G89.29 Other chronic pain (principal); R10.84 Generalized abdominal pain; E86.0 Dehydration; E10.43 Type 1 diabetes mellitus with diabetic autonomic (poly)neuropathy; K31.84 Gastroparesis; Z76.5 Malingerer [conscious simulation]; Z86.19 Personal history of other infectious and parasitic diseases; Z79.4 Long term (current) use of insulin; Z88.8 Allergy status to other drugs, medicaments and biological substances
CPT/HCPCS: 36415; 36600; 80053; 80307; 81000; 82150; 82803; 82962; 83690; 84484; 85025; 93005; 96361; 96372; 96374; 96375; 99285; J1885; J2405; J2765; J7030; J1815

== ENCOUNTER 2018-02-20 13:02 | Emergency (ER) | payer MEDICAID ==
[~2018-02-20] VITALS: Ht 188 cm; Wt 68.0 kg
[~2018-02-20 13:02] MED LIST changes: -METO-290 PO; -NITR-85 PO; -ONDA4TAB22 PO; -ONDA4TAB22 SL
[2018-02-20 13:10] VITALS: BP_SYST 116
[2018-02-20] MEDS ORDERED: NACL 0.9% 1,000 ML IV ONE (13:38)
[2018-02-20] MEDS ORDERED: ONDANSETRON HCL 4 MG/2 ML VIAL IVP ONE (13:45)
[2018-02-20] MEDS ORDERED: MORPHINE 4 MG/ML INJ. SYRINGE IVP ONE (13:45)
[2018-02-20 14:02] LABS: BILIRUBIN,URINE NEGATIVE (NEGATIVE); BLOOD, URINE NEGATIVE (NEGATIVE); CLARITY/URINE CLEAR (CLEAR); COLOR,URINE YELLOW (YELLOW); GLUCOSE,URINE 3+ (NEGATIVE); KETONES,URINE NEGATIVE (NEGATIVE); LEUKOCYTE ESTERASE ,URINE NEGATIVE (NEGATIVE); NITRITE, URINE NEGATIVE (NEGATIVE); PH,URINE 7.5 (5.0-8.0); PROTEIN URINE NEGATIVE (NEGATIVE); UROBILINOGEN,URINE 0.2 (0.2-1.0)
[2018-02-20 14:08] LABS: BASOPHILS # (AUTO) 0.1 K/uL (0.0-0.2); BASOPHILS % (AUTO) 1.6 % (0.0-2.0); EOSINOPHILS # (AUTO) 0.1 K/uL (0.0-0.4); EOSINOPHILS % (AUTO) 1.4 % (0.0-4.0); HEMATOCRIT 30.1 % (36-54); HEMOGLOBIN 10.1 g/dL (14.0-18.0); LYMPHOCYTES # (AUTO) 1.2 K/uL (1.0-5.5); MEAN CORPUSCULAR HEMOGLOBIN 33 pg (27-31); MEAN CORPUSCULAR HGB CONC 34 % (32-36); MEAN CORPUSCULAR VOLUME 97 fL (79.0-98.0); MONOCYTES # (AUTO) 0.5 K/uL (0.0-1.0); MONOCYTES % (AUTO) 9.7 % (1.7-9.3); NEUTROPHILS % (AUTO) 62.3 % (40.0-70.0); PLATELET COUNT (AUTO) 259 K/uL (130-430); RED BLOOD CELL COUNT(AUTO) 3.12 MIL/uL (4.2-6.2); RED CELL DISTRIBUTION WIDTH 16.1 % (9.0-15.0); WHITE BLOOD COUNT (AUTO) 4.9 K/uL (4.8-10.8)
[2018-02-20 14:25] LABS: INR 0.9 (0.80-1.20); PROTHROMBIN TIME 9.5 SECS (9.5-12.5)
[2018-02-20 14:27] LABS: CREATININE 0.71 mg/dL (0.55-1.30); POTASSIUM 3.6 mmol/L (3.5-5.1)
[2018-02-20 14:31] LABS: TOTAL BILIRUBIN 0.6 mg/dL (0.0-1.0)
[2018-02-20] MEDS ORDERED: DEXTROSE 50% JECT 50 ML DISP.SYRIN ONE (14:51)
[2018-02-20] MEDS ORDERED: DEXTROSE 50% JECT 50 ML DISP.SYRIN IVP ONE (15:00)
[2018-02-20 15:13] LABS: CKMB RELATIVE INDEX 0.7 (0.0-2.9); CREATINE KINASE MB 3.5 ng/mL (0-3.6)
[2018-02-20 17:03] LABS: CALCIUM 7.8 mg/dL (8.4-11.0); CREATININE 0.62 mg/dL (0.55-1.30); POTASSIUM 4.1 mmol/L (3.5-5.1)
== END 2018-02-20 18:54 | disposition home or self-care (01) ==
LOC: SED 13:02
DX: K31.84 Gastroparesis (principal); E16.2 Hypoglycemia, unspecified; E11.9 Type 2 diabetes mellitus without complications; B19.20 Unspecified viral hepatitis C without hepatic coma; Z88.8 Allergy status to other drugs, medicaments and biological substances; Z79.899 Other long term (current) drug therapy
CPT/HCPCS: 36415; 71045; 80048; 80053; 81003; 82550; 82553; 83690; 85025; 85610; 85730; 93005; 96361; 96374; 96375; 99285; J2270; J2405; J7030

== ENCOUNTER 2018-05-27 07:53 | Emergency (ER) | payer MEDICAID ==
[~2018-05-27] VITALS: Ht 188 cm; Wt 95.3 kg
[2018-05-27 07:53] VITALS: BP_SYST 141
[2018-05-27] MEDS ORDERED: NACL 0.9% 1,000 ML IV ONE ×3 (08:15→09:30)
[2018-05-27] MEDS ORDERED: ONDANSETRON HCL 4 MG/2 ML VIAL IVP ONE (08:15)
[2018-05-27] MEDS ORDERED: MORPHINE 4 MG/ML INJ. SYRINGE IVP ONE (08:15)
[2018-05-27 08:52] LABS: HEMATOCRIT 42.1 % (36-54); HEMOGLOBIN 13.8 g/dL (14.0-18.0); MEAN CORPUSCULAR HEMOGLOBIN 30 pg (27-31); MEAN CORPUSCULAR HGB CONC 33 % (32-36); MEAN CORPUSCULAR VOLUME 90 fL (79.0-98.0); PLATELET COUNT (AUTO) 243 K/uL (130-430); RED BLOOD CELL COUNT(AUTO) 4.69 MIL/uL (4.2-6.2); RED CELL DISTRIBUTION WIDTH 11.8 % (9.0-15.0); WHITE BLOOD COUNT (AUTO) 6.1 K/uL (4.8-10.8)
[2018-05-27 09:01] LABS: CALCIUM 9.1 mg/dL (8.4-11.0); CREATININE 1.17 mg/dL (0.55-1.30); POTASSIUM 3.2 mmol/L (3.5-5.1)
[2018-05-27 09:35] LABS: BAND % (MANUAL) 2 % (0-6); LYMPHOCYTES % (MANUAL) 31 % (20-46)
[2018-05-27 09:36] LABS: BASOPHILS % (MANUAL) 0 % (0-2); EOSINOPHILS % (MANUAL) 2 % (0-7); MONOCYTES % (MANUAL) 3 % (0-11)
[2018-05-27] MEDS ORDERED: MAG HYDROX/AL HYDROX/SIMETH 30 ML, BELLADONNA ALKALOIDS/PHENOBARB 10 ML, LIDOCAINE VISC... PO ONE ×3 (10:15)
[2018-05-27] MEDS ORDERED: HALOPERIDOL LACTATE 5 MG/ML VIAL IVP ONE (10:30)
[2018-05-27 11:28] VITALS: BP_SYST 132
== END 2018-05-27 11:28 | disposition home or self-care (01) ==
LOC: SED 07:53
DX: E10.43 Type 1 diabetes mellitus with diabetic autonomic (poly)neuropathy (principal); K31.84 Gastroparesis; Z86.19 Personal history of other infectious and parasitic diseases; Z88.8 Allergy status to other drugs, medicaments and biological substances; Z79.4 Long term (current) use of insulin
CPT/HCPCS: 36415; 80048; 85007; 85027; 96361; 96374; 96375; 99284; J1630; J2001; J2270; J2405; J7030

== ENCOUNTER 2018-06-01 08:29 | Inpatient (IN) | payer MEDICAID ==
[~2018-06-01] VITALS: Ht 188 cm; Wt 93.0 kg
[2018-06-01 08:40] VITALS: BP_SYST 149
[2018-06-01] MEDS ORDERED: NACL 0.9% 1,000 ML IV ONE ×2 (08:58→11:00)
[2018-06-01] MEDS ORDERED: DIPHENHYDRAMINE INJ 50 MG/ML VIAL IVP ONE (09:00)
[2018-06-01] MEDS ORDERED: MORPHINE 4 MG/ML INJ. SYRINGE IVP ONE (09:00)
[2018-06-01] MEDS ORDERED: ONDANSETRON HCL 4 MG/2 ML VIAL IVP ONE (09:00)
[2018-06-01 09:12] LABS: BASOPHILS # (AUTO) 0.1 K/uL (0.0-0.2); BASOPHILS % (AUTO) 1.4 % (0.0-2.0); EOSINOPHILS % (AUTO) 0.6 % (0.0-4.0); HEMATOCRIT 42.1 % (36-54); HEMOGLOBIN 13.7 g/dL (14.0-18.0); LYMPHOCYTES # (AUTO) 1.4 K/uL (1.0-5.5); LYMPHOCYTES % (AUTO) 19.8 % (20.5-51.5); MEAN CORPUSCULAR HEMOGLOBIN 29 pg (27-31); MEAN CORPUSCULAR HGB CONC 33 % (32-36); MEAN CORPUSCULAR VOLUME 90 fL (79.0-98.0); MONOCYTES # (AUTO) 0.4 K/uL (0.0-1.0); MONOCYTES % (AUTO) 5.5 % (1.7-9.3); NEUTROPHILS # (AUTO) 5.2 K/uL (1.8-7.7); NEUTROPHILS % (AUTO) 72.7 % (40.0-70.0); PLATELET COUNT (AUTO) 259 K/uL (130-430); RED BLOOD CELL COUNT(AUTO) 4.67 MIL/uL (4.2-6.2); RED CELL DISTRIBUTION WIDTH 12.4 % (9.0-15.0); WHITE BLOOD COUNT (AUTO) 7.1 K/uL (4.8-10.8)
[2018-06-01 09:23] LABS: CALCIUM 9.2 mg/dL (8.4-11.0); CREATININE 1.02 mg/dL (0.55-1.30); POTASSIUM 3.5 mmol/L (3.5-5.1)
[2018-06-01 09:29] LABS: ALBUMIN 4.2 g/dL (3.4-4.8)
[2018-06-01] MEDS ORDERED: methylPREDNISolone SOD SUCC/PF 62.5 MG/ML VIAL IVP ONE (09:45)
[2018-06-01 10:40] LABS: BILIRUBIN,URINE NEGATIVE (NEGATIVE); BLOOD, URINE NEGATIVE (NEGATIVE); COLOR,URINE YELLOW (YELLOW); GLUCOSE,URINE 3+ (NEGATIVE); KETONES,URINE 3+ (NEGATIVE); LEUKOCYTE ESTERASE ,URINE NEGATIVE (NEGATIVE); NITRITE, URINE NEGATIVE (NEGATIVE); PH,URINE 7.5 (5.0-8.0); PROTEIN URINE NEGATIVE (NEGATIVE)
[2018-06-01 10:50] LABS: CLARITY/URINE SLIGHTLY HAZY (CLEAR)
[2018-06-01 10:57] LABS: BACTERIA,URINE FEW /HPF (None Seen); RBC,URINE 0-3 /HPF (0-3); WBC,URINE NONE SEEN /HPF (0-3)
[2018-06-01] MEDS ORDERED: MAGNESIUM CITRATE 300 ML ORAL SOLUTION PO ONE (11:30)
[2018-06-01] MEDS ORDERED: METO-290 PO (12:18)
[2018-06-01 12:35] VITALS: BP_SYST 192
[2018-06-01] MEDS: NACL 0.9% 1,000 ML IV SCH ×2 (12:55→20:04)
[2018-06-01] MEDS: fentaNYL CITRATE/PF 100 MCG/2 ML AMP IVP PRN ×3 (14:27→22:18)
[2018-06-01 16:00] VITALS: BP_SYST 130
[2018-06-01] MEDS: INSULIN REGULAR, HUMAN 100 UNITS/ML, 10 ML VIAL (novoLIN R) SUBCUT PRN ×2 (17:32→20:07)
[2018-06-01] MEDS: ONDANSETRON HCL 4 MG/2 ML VIAL IVP PRN (18:30)
[2018-06-01 20:00] VITALS: BP_SYST 128
[2018-06-01 23:31] VITALS: BP_SYST 129
[2018-06-02] MEDS: ONDANSETRON HCL 4 MG/2 ML VIAL IVP PRN ×3 (00:11→14:27)
[2018-06-02] MEDS: NACL 0.9% 1,000 ML IV SCH ×4 (02:27→22:05)
[2018-06-02] MEDS: fentaNYL CITRATE/PF 100 MCG/2 ML AMP IVP PRN ×6 (02:28→23:24)
[2018-06-02 06:15] LABS: ALBUMIN 3.2 g/dL (3.4-4.8); CALCIUM 7.9 mg/dL (8.4-11.0); CREATININE 0.63 mg/dL (0.55-1.30); POTASSIUM 3.8 mmol/L (3.5-5.1); TOTAL BILIRUBIN 1.2 mg/dL (0.0-1.0)
[2018-06-02 06:23] LABS: BASOPHILS % (AUTO) 0.6 % (0.0-2.0); EOSINOPHILS % (AUTO) 0.7 % (0.0-4.0); HEMATOCRIT 35.3 % (36-54); HEMOGLOBIN 12.3 g/dL (14.0-18.0); LYMPHOCYTES # (AUTO) 1.6 K/uL (1.0-5.5); LYMPHOCYTES % (AUTO) 24.8 % (20.5-51.5); MEAN CORPUSCULAR HEMOGLOBIN 32 pg (27-31); MEAN CORPUSCULAR HGB CONC 35 % (32-36); MEAN CORPUSCULAR VOLUME 91 fL (79.0-98.0); MONOCYTES # (AUTO) 0.4 K/uL (0.0-1.0); MONOCYTES % (AUTO) 5.5 % (1.7-9.3); NEUTROPHILS # (AUTO) 4.5 K/uL (1.8-7.7); NEUTROPHILS % (AUTO) 68.4 % (40.0-70.0); PLATELET COUNT (AUTO) 211 K/uL (130-430); RED BLOOD CELL COUNT(AUTO) 3.89 MIL/uL (4.2-6.2); RED CELL DISTRIBUTION WIDTH 12.2 % (9.0-15.0); WHITE BLOOD COUNT (AUTO) 6.5 K/uL (4.8-10.8)
[2018-06-02] MEDS: INSULIN REGULAR, HUMAN 100 UNITS/ML, 10 ML VIAL (novoLIN R) SUBCUT PRN ×4 (06:28→20:28)
[2018-06-02 08:11] VITALS: BP_SYST 148
[2018-06-02 12:37] VITALS: BP_SYST 157
[2018-06-02 16:50] VITALS: BP_SYST 156
[2018-06-02 20:00] VITALS: BP_SYST 105
[2018-06-02 23:48] VITALS: BP_SYST 146
[2018-06-03] MEDS: fentaNYL CITRATE/PF 100 MCG/2 ML AMP IVP PRN ×5 (03:20→21:02)
[2018-06-03] MEDS: ONDANSETRON HCL 4 MG/2 ML VIAL IVP PRN (04:33)
[2018-06-03] MEDS: NACL 0.9% 1,000 ML IV SCH ×3 (04:33→21:11)
[2018-06-03] MEDS: INSULIN REGULAR, HUMAN 100 UNITS/ML, 10 ML VIAL (novoLIN R) SUBCUT PRN ×4 (06:18→21:11)
[2018-06-03 08:00] VITALS: BP_SYST 168
[2018-06-03 11:16] LABS: BARBITURATE, URINE NEGATIVE (NEG <=200); BENZODIAZEPINE, URINE NEGATIVE (NEG <=150); CANNABINOID, URINE POSITIVE (NEG <=50); METHAMPHETAMINES SCREEN,URINE NEGATIVE (NEG <=500); URINE AMPHETAMINE NEGATIVE (NEG <=500); URINE METHADONE NEGATIVE (NEG <=200)
[2018-06-03 11:17] LABS: COCAINE, URINE NEGATIVE (NEG <=150); OPIATE, URINE NEGATIVE (NEG <=100); PHENCYCLIDINE SCREEN,URINE NEGATIVE (NEG <=25); UR TRICYCLIC ANTIDEPRESSANTS NEGATIVE (NEG <=300); URINE OXYCODONE SCREEN NEGATIVE (NEG <=100); URINE PROPOXYPHENE SCREEN NEGATIVE (NEG <=300)
[2018-06-03 11:44] VITALS: BP_SYST 143
[2018-06-03] MEDS: METOCLOPRAMIDE HCL 10 MG/2 ML VIAL IVP SCH ×2 (15:07→21:02)
[2018-06-03 16:55] VITALS: BP_SYST 132
[2018-06-03 20:00] VITALS: BP_SYST 137
[2018-06-04] MEDS: NACL 0.9% 1,000 ML IV SCH ×4 (04:52→20:30)
[2018-06-04] MEDS: fentaNYL CITRATE/PF 100 MCG/2 ML AMP IVP PRN ×5 (04:52→22:26)
[2018-06-04] MEDS: METOCLOPRAMIDE HCL 10 MG/2 ML VIAL IVP SCH ×3 (06:01→21:06)
[2018-06-04] MEDS: INSULIN REGULAR, HUMAN 100 UNITS/ML, 10 ML VIAL (novoLIN R) SUBCUT PRN ×4 (06:07→20:46)
[2018-06-04] MEDS: ONDANSETRON HCL 4 MG/2 ML VIAL IVP PRN (07:57)
[2018-06-04 08:00] VITALS: BP_SYST 159
[2018-06-04 10:24] LABS: ALBUMIN 3.4 g/dL (3.4-4.8); CALCIUM 8.3 mg/dL (8.4-11.0); CREATININE 0.69 mg/dL (0.55-1.30); POTASSIUM 3.6 mmol/L (3.5-5.1); TOTAL BILIRUBIN 1.4 mg/dL (0.0-1.0)
[2018-06-04 16:00] VITALS: BP_SYST 164
[2018-06-04] MEDS ORDERED: MAGNESIUM CITRATE 300 ML ORAL SOLUTION PO ONE (17:00)
[2018-06-04 20:00] VITALS: BP_SYST 155
[2018-06-04 22:00] VITALS: BP_SYST 149
[2018-06-05] MEDS: fentaNYL CITRATE/PF 100 MCG/2 ML AMP IVP PRN ×5 (04:07→20:19)
[2018-06-05] MEDS: NACL 0.9% 1,000 ML IV SCH ×4 (04:08→23:13)
[2018-06-05] MEDS: METOCLOPRAMIDE HCL 10 MG/2 ML VIAL IVP SCH ×3 (06:09→23:13)
[2018-06-05] MEDS: INSULIN REGULAR, HUMAN 100 UNITS/ML, 10 ML VIAL (novoLIN R) SUBCUT PRN ×4 (06:12→20:29)
[2018-06-05 07:55] VITALS: BP_SYST 141
[2018-06-05 11:58] VITALS: BP_SYST 142
[2018-06-05 16:00] VITALS: BP_SYST 154
[2018-06-05 20:00] VITALS: BP_SYST 150
[2018-06-05 22:45] VITALS: BP_SYST 150
[2018-06-06] MEDS: fentaNYL CITRATE/PF 100 MCG/2 ML AMP IVP PRN ×4 (00:16→13:21)
[2018-06-06 00:40] VITALS: BP_SYST 112
[2018-06-06] MEDS: METOCLOPRAMIDE HCL 10 MG/2 ML VIAL IVP SCH ×2 (06:20→13:21)
[2018-06-06] MEDS: NACL 0.9% 1,000 ML IV SCH ×2 (06:20→12:30)
[2018-06-06] MEDS: INSULIN REGULAR, HUMAN 100 UNITS/ML, 10 ML VIAL (novoLIN R) SUBCUT PRN ×2 (06:32→11:51)
[2018-06-06 08:00] VITALS: BP_SYST 137
[2018-06-06 11:18] VITALS: BP_SYST 150
[2018-06-06 14:12] VITALS: BP_SYST 137
== END 2018-06-06 14:25 | disposition home or self-care (01) | DRG 54 ==
LOC: SED 08:29 → SMU 12:16
PROVIDERS: ADMIT Internal Medicine Hospice and Palliative Medicine; ATTEND Internal Medicine Hospice and Palliative Medicine
DX: G43.A0 Cyclical vomiting, in migraine, not intractable (principal); K31.84 Gastroparesis; E10.43 Type 1 diabetes mellitus with diabetic autonomic (poly)neuropathy; I10 Essential (primary) hypertension; F19.10 Other psychoactive substance abuse, uncomplicated; F15.90 Other stimulant use, unspecified, uncomplicated; F12.10 Cannabis abuse, uncomplicated; K59.00 Constipation, unspecified; B19.20 Unspecified viral hepatitis C without hepatic coma; Z88.8 Allergy status to other drugs, medicaments and biological substances
CPT/HCPCS: 36415; 74018; 80053; 80307; 81000-TC; 82962; 83036; 83690-TC; 85025; 96361; 96374; 96375; 99285; J1200; J1815; J2270; J2405; J2765; J3010; J7030

== ENCOUNTER 2018-06-14 13:22 | Inpatient (IN) | payer MEDICAID ==
[~2018-06-14] VITALS: Ht 188 cm; Wt 90.7 kg
[~2018-06-14 13:22] MED LIST changes: +METO-290 PO
[2018-06-14 13:34] VITALS: BP_SYST 152
[2018-06-14] MEDS ORDERED: NACL 0.9% 1,000 ML IV ONE ×2 (13:45→14:45)
[2018-06-14] MEDS ORDERED: ONDANSETRON HCL 4 MG/2 ML VIAL IVP ONE (13:45)
[2018-06-14] MEDS ORDERED: MORPHINE 4 MG/ML INJ. SYRINGE IVP ONE ×2 (13:45→15:00)
[2018-06-14 14:15] LABS: BASOPHILS # (AUTO) 0.1 K/uL (0.0-0.2); BASOPHILS % (AUTO) 0.9 % (0.0-2.0); EOSINOPHILS # (AUTO) 0.1 K/uL (0.0-0.4); HEMATOCRIT 42.2 % (36-54); HEMOGLOBIN 13.7 g/dL (14.0-18.0); LYMPHOCYTES # (AUTO) 1.4 K/uL (1.0-5.5); LYMPHOCYTES % (AUTO) 23.2 % (20.5-51.5); MEAN CORPUSCULAR HEMOGLOBIN 30 pg (27-31); MEAN CORPUSCULAR HGB CONC 33 % (32-36); MEAN CORPUSCULAR VOLUME 92 fL (79.0-98.0); MONOCYTES # (AUTO) 0.5 K/uL (0.0-1.0); MONOCYTES % (AUTO) 8.4 % (1.7-9.3); NEUTROPHILS # (AUTO) 4.2 K/uL (1.8-7.7); NEUTROPHILS % (AUTO) 66.5 % (40.0-70.0); PLATELET COUNT (AUTO) 220 K/uL (130-430); RED BLOOD CELL COUNT(AUTO) 4.61 MIL/uL (4.2-6.2); RED CELL DISTRIBUTION WIDTH 13.1 % (9.0-15.0); WHITE BLOOD COUNT (AUTO) 6.3 K/uL (4.8-10.8)
[2018-06-14 14:29] LABS: CALCIUM 9.7 mg/dL (8.4-11.0); CREATININE 1.13 mg/dL (0.55-1.30); POTASSIUM 3.9 mmol/L (3.5-5.1)
[2018-06-14 14:45] LABS: ALBUMIN 4.3 g/dL (3.4-4.8); TOTAL BILIRUBIN 1.7 mg/dL (0.0-1.0)
[2018-06-14] MEDS ORDERED: INSULIN REGULAR, HUMAN 10 UNITS/0.1 ML INJ IVP ONE (14:45)
[2018-06-14 15:20] LABS: BILIRUBIN,URINE NEGATIVE (NEGATIVE); BLOOD, URINE NEGATIVE (NEGATIVE); CLARITY/URINE CLEAR (CLEAR); COLOR,URINE YELLOW (YELLOW); GLUCOSE,URINE 2+ (NEGATIVE); KETONES,URINE 2+ (NEGATIVE); LEUKOCYTE ESTERASE ,URINE NEGATIVE (NEGATIVE); NITRITE, URINE NEGATIVE (NEGATIVE); PH,URINE 8.5 (5.0-8.0); PROTEIN URINE 1+ (NEGATIVE)
[2018-06-14 15:25] LABS: BACTERIA,URINE FEW /HPF (None Seen); HYALINE CASTS, URINE 0-10 /LPF (None Seen); RBC,URINE 0-3 /HPF (0-3); WBC,URINE 0-3 /HPF (0-3)
[2018-06-14 15:29] LABS: BARBITURATE, URINE NEGATIVE (NEG <=200); BENZODIAZEPINE, URINE NEGATIVE (NEG <=150); CANNABINOID, URINE POSITIVE (NEG <=50); COCAINE, URINE NEGATIVE (NEG <=150); METHAMPHETAMINES SCREEN,URINE NEGATIVE (NEG <=500); OPIATE, URINE POSITIVE (NEG <=100); PHENCYCLIDINE SCREEN,URINE NEGATIVE (NEG <=25); UR TRICYCLIC ANTIDEPRESSANTS NEGATIVE (NEG <=300); URINE AMPHETAMINE NEGATIVE (NEG <=500); URINE METHADONE NEGATIVE (NEG <=200); URINE OXYCODONE SCREEN NEGATIVE (NEG <=100); URINE PROPOXYPHENE SCREEN NEGATIVE (NEG <=300)
[2018-06-14] MEDS ORDERED: METOCLOPRAMIDE HCL 10 MG/2 ML VIAL IVP ONE (16:15)
[2018-06-14] MEDS ORDERED: MORPHINE 2 MG/ML INJ. SYRINGE IVP ONE (17:15)
[2018-06-14 18:20] VITALS: BP_SYST 178
[2018-06-14] MEDS ORDERED: ONDANSETRON HCL 4 MG/2 ML VIAL IVP PRN (18:45)
[2018-06-14] MEDS ORDERED: METOCLOPRAMIDE HCL 10 MG/2 ML VIAL IVP PRN (18:45)
[2018-06-14] MEDS ORDERED: MORPHINE 2 MG/ML INJ. SYRINGE IVP PRN (18:45)
[2018-06-14] MEDS ORDERED: cloNIDine HCL 0.1 MG TABLET PO PRN ×2 (18:45→19:00)
[2018-06-14] MEDS ORDERED: hydrALAZINE HCL 20 MG/ML VIAL IVP PRN (19:00)
[2018-06-14] MEDS ORDERED: ENALAPRILAT DIHYDRATE 1.25 MG/ML VIAL IVP PRN (19:00)
[2018-06-14] MEDS ORDERED: DEXTROSE 50%-WATER 50 ML DISP.SYRIN IVP PRN ×2 (19:15)
[2018-06-14] MEDS ORDERED: GLUCOSE 15 GM GEL (in 37.5 GM TUBE) PO PRN ×2 (19:15)
[2018-06-14] MEDS ORDERED: cloNIDine HCL 0.1 MG TABLET ONE (19:16)
[2018-06-14 20:03] VITALS: BP_SYST 148
[2018-06-14] MEDS: NACL 0.9% 1,000 ML IV SCH (20:37)
[2018-06-14] MEDS: MORPHINE 4 MG/ML INJ. SYRINGE IVP PRN (21:17)
[2018-06-14] MEDS: INSULIN REGULAR, HUMAN 100 UNITS/ML, 10 ML VIAL (novoLIN R) SUBCUT PRN (21:29)
[2018-06-15] VITALS: BP_SYST 114
[2018-06-15] MEDS: MORPHINE 4 MG/ML INJ. SYRINGE IVP PRN ×7 (03:05→20:28)
[2018-06-15] MEDS: NACL 0.9% 1,000 ML IV SCH ×3 (05:35→20:32)
[2018-06-15] MEDS: INSULIN REGULAR, HUMAN 100 UNITS/ML, 10 ML VIAL (novoLIN R) SUBCUT PRN ×4 (06:23→20:38)
[2018-06-15 08:48] VITALS: BP_SYST 127
[2018-06-15] MEDS ORDERED: METOCLOPRAMIDE HCL 10 MG/2 ML VIAL IVP SCH (10:30)
[2018-06-15] MEDS: METOCLOPRAMIDE HCL 10 MG/2 ML VIAL IVP SCH ×2 (11:51→17:31)
[2018-06-15 12:45] VITALS: BP_SYST 127
[2018-06-15 16:50] VITALS: BP_SYST 123
[2018-06-15 20:00] VITALS: BP_SYST 130
[2018-06-16] MEDS: METOCLOPRAMIDE HCL 10 MG/2 ML VIAL IVP SCH ×3 (00:16→11:19)
[2018-06-16] MEDS: MORPHINE 4 MG/ML INJ. SYRINGE IVP PRN ×5 (00:19→11:28)
[2018-06-16 00:28] VITALS: BP_SYST 114
[2018-06-16] MEDS: INSULIN REGULAR, HUMAN 100 UNITS/ML, 10 ML VIAL (novoLIN R) SUBCUT PRN ×2 (06:33→11:25)
[2018-06-16 08:10] VITALS: BP_SYST 106
[2018-06-16] MEDS: NACL 0.9% 1,000 ML IV SCH (08:28)
[2018-06-16 11:10] VITALS: BP_SYST 123
[2018-06-16 12:19] VITALS: BP_SYST 123
== END 2018-06-16 13:00 | disposition home or self-care (01) | DRG 48 ==
LOC: SED 13:22 → SMU 17:25
PROVIDERS: ADMIT Internal Medicine Hospice and Palliative Medicine; ATTEND Internal Medicine Hospice and Palliative Medicine
DX: E10.43 Type 1 diabetes mellitus with diabetic autonomic (poly)neuropathy (principal); N17.9 Acute kidney failure, unspecified; K31.84 Gastroparesis; B19.20 Unspecified viral hepatitis C without hepatic coma; R74.8 Abnormal levels of other serum enzymes; I10 Essential (primary) hypertension; F12.90 Cannabis use, unspecified, uncomplicated; Z88.8 Allergy status to other drugs, medicaments and biological substances; E87.1 Hypo-osmolality and hyponatremia
CPT/HCPCS: 36415; 76700-TC; 80053; 80307; 81000-TC; 82962; 83690-TC; 85025; 87081; 93005; 96361; 96374; 96375; 96376; 99285; J1815; J2270; J2405; J2765; J7030

== ENCOUNTER 2018-06-19 09:50 | Inpatient (IN) | payer MEDICAID ==
[~2018-06-19] VITALS: Ht 188 cm; Wt 90.7 kg
[2018-06-19 10:00] VITALS: BP_SYST 106
--- NOTE | 2018-06-19 10:03 | NUR ---
Pt placed in bed 4
--- NOTE | 2018-06-19 10:20 | NUR ---
Patient c/c of abdominal pain. Patient discharged Thursday. Patient had elevated liver enzymes and was admitted. Patient states he felt better and asked to be discharged. Patient states he has ongoing abdominal pain. Has normal bowel movement consistency and it was green in color. Patient has had ongoing nausea and vomiting.
[2018-06-19] MEDS ORDERED: NACL 0.9% 1,000 ML IV ONE (10:21)
--- NOTE | 2018-06-19 10:31 | NUR ---
ER at bedside examining patient.
[2018-06-19] MEDS ORDERED: MORPHINE 4 MG/ML INJ. SYRINGE IVP ONE ×2 (10:45→12:30)
[2018-06-19] MEDS ORDERED: ONDANSETRON HCL 4 MG/2 ML VIAL IVP ONE (10:45)
[2018-06-19 10:52] LABS: CALCIUM 9.3 mg/dL (8.4-11.0); CREATININE 1.41 mg/dL (0.55-1.30)
[2018-06-19 10:54] LABS: BASOPHILS # (AUTO) 0.1 K/uL (0.0-0.2); BASOPHILS % (AUTO) 1.5 % (0.0-2.0); EOSINOPHILS % (AUTO) 0.8 % (0.0-4.0); HEMATOCRIT 43.1 % (36-54); HEMOGLOBIN 14.9 g/dL (14.0-18.0); LYMPHOCYTES # (AUTO) 1.4 K/uL (1.0-5.5); LYMPHOCYTES % (AUTO) 25.5 % (20.5-51.5); MEAN CORPUSCULAR HEMOGLOBIN 31 pg (27-31); MEAN CORPUSCULAR HGB CONC 35 % (32-36); MEAN CORPUSCULAR VOLUME 89 fL (79.0-98.0); MONOCYTES # (AUTO) 0.4 K/uL (0.0-1.0); MONOCYTES % (AUTO) 7.4 % (1.7-9.3); NEUTROPHILS # (AUTO) 3.8 K/uL (1.8-7.7); NEUTROPHILS % (AUTO) 64.8 % (40.0-70.0); PLATELET COUNT (AUTO) 240 K/uL (130-430); RED BLOOD CELL COUNT(AUTO) 4.85 MIL/uL (4.2-6.2); RED CELL DISTRIBUTION WIDTH 13.3 % (9.0-15.0); WHITE BLOOD COUNT (AUTO) 5.7 K/uL (4.8-10.8)
[2018-06-19 10:56] LABS: ALBUMIN 4.2 g/dL (3.4-4.8); TOTAL BILIRUBIN 2.5 mg/dL (0.0-1.0)
--- NOTE | 2018-06-19 12:35 | NUR ---
Pain medication was given to pt, tolerated well
--- NOTE | 2018-06-19 12:36 | NUR ---
Medication reconciliation completed with information provided by patient. Any prior medication reconciliation on file was reviewed and corrected.
--- NOTE | 2018-06-19 12:51 | NUR ---
ADMISSION NOTE Received patient from ER via gurney. Patient admitted with diagnosis of ABDOMINAL PAIN/ HYPONATREMIA. Patient is awake, alert, oriented X 4. Patient oriented to hospital room, call light, toileting, pain management and safety-teach back done. Patient informed that PAMELA will be HIS nurse and that their room number is 122B. Personal belongings checked and Belongings List documented. Call light within reach.
--- NOTE | 2018-06-19 12:58 | NUR ---
Patient will be admitted to care of Dr Rogers. Admitted to Med surg unit. Will go to room 122B. Belongings list completed. Summary report printed. Report will be given at bedside.
[2018-06-19 13:01] VITALS: BP_SYST 118; BP_SYST 126
--- NOTE | 2018-06-19 13:04 | NUR ---
OPENING NOTES RECEIVED PT FROM Erin. PT IS AAOX4, C/O ABDOMINAL PAIN, 06/16 NO RESP DISTRESS. NO SOB. PT ADMITTED FOR ABDOMINAL PAIN AND N/V. PT JSUT RELEASED WITH SAME PROBLEM LAST THURSDAY. PAGED DR LANDEROS TO GET ORDER FOR PAIN MEDS, DIET AND OTHER ADMIT ORDERS. SAFETY PRECAUTION IN PLACE. CALL LIGHT IN REACH. BED IN LOW POSITION. WILL CONT TO MONITOR.
[2018-06-19] MEDS ORDERED: MORPHINE 2 MG/ML INJ. SYRINGE IVP PRN (13:15)
[2018-06-19] MEDS ORDERED: ONDANSETRON HCL 4 MG/2 ML VIAL IVP PRN ×2 (13:15→23:45)
--- NOTE | 2018-06-19 13:40 | NUR ---
Consultation Called Reason for Consultation: Abd Pain Was consult called: Y Person who was notified: Janice Consulting Physician: Dr. Aponte Diploma Pharmacy Technician Ordering Physician: Mohini Larios
[2018-06-19 13:53] VITALS: BP_SYST 118
[2018-06-19] MEDS: MORPHINE 4 MG/ML INJ. SYRINGE IVP PRN ×3 (13:54→21:01)
[2018-06-19] MEDS: NACL 0.9% 1,000 ML IV SCH ×2 (13:54→23:25)
--- NOTE | 2018-06-19 14:32 | NUR ---
DR BENEDICT MADE AWARE OF THE CONSULT.
--- NOTE | 2018-06-19 14:55 | NUR ---
NEW IV STARTED ASPTICALLY OLD IV ACCESS IS LEAKING. PT TOLERATED WELL.
[2018-06-19] MEDS ORDERED: LORazepam 2 MG/ML VIAL IVP PRN ×2 (16:30→23:45)
[2018-06-19 16:44] VITALS: BP_SYST 119
[2018-06-19] MEDS ORDERED: INSULIN LISPRO U SQ SCH (17:00)
[2018-06-19] MEDS: ONDANSETRON HCL 4 MG/2 ML VIAL IVP PRN ×2 (17:17→21:00)
[2018-06-19] MEDS: INSULIN ASPART 100 UNITS/ML, 10 ML VIAL SUBCUT SCH (17:21)
--- NOTE | 2018-06-19 18:13 | NUR ---
PT EATING DINNER NOW. PT'S PAIN BETTER. SAFETY PRECAUTION KEPT IN PLACE. CALL LIGHT IN REACH.
--- NOTE | 2018-06-19 18:55 | NUR ---
CLOSING NOTES PT C/O ABDOMINAL PAIN , PT GIVEN PAIN MED . BLOOD SUGAR CHECKED. IT WAS 329. SAFETY PRECAUTION KEPT IN PLACE. CALL LIGHT IN REACH. BED IN LOW POSITION. IV SITE INTACT AND PATENT. IV FLUIDS INFUSING WELL . WILL ENDORSE TO NIGHT RN.
[2018-06-19 20:00] VITALS: BP_SYST 110
--- NOTE | 2018-06-19 20:00 | NUR ---
Initial Notes Received patient resting in bed, awake, alert, oriented. Patient denies any acute distress or pain at this time. Vital signs stable. Breathing is even and unlabored. IV site patent/clean/dry. Needs addressed. Educated patient regarding use of call light for assistance and fall precautions, patient verbalized understanding. Call light in hand, fall precautions in place. Will continue to monitor
[2018-06-19] MEDS ORDERED: INSULIN GLARGINE HUM REC ANLOG 50 UNIT SQ SCH (21:00)
[2018-06-19] MEDS ORDERED: [UNRECOGNIZED DRUG - OTHER] SQ SCH (21:00)
[2018-06-19] MEDS: INSULIN REGULAR, HUMAN 100 UNITS/ML, 10 ML VIAL (novoLIN R) SUBCUT PRN (21:11)
--- NOTE | 2018-06-19 22:00 | NUR ---
Nursing Notes Patient resting in bed, awake. Patient denies any acute distress at this time. Breathing is even and unlabored. IV site patent/clean/dry. Needs addressed. Patient updated on plan of care. Call light in hand, fall precautions in place.
[2018-06-19 23:10] VITALS: BP_SYST 90
[2018-06-19] MEDS ORDERED: DEXTROSE 50% JECT 50 ML DISP.SYRIN IVP PRN ×2 (23:45)
--- NOTE | 2018-06-20 | NUR ---
Nursing Notes Patient resting in bed with eyes closed, easily aroused upon nurse entering room. Patient denies any acute distress or pain at this time. IV site patent/clean/dry. Needs addressed. Will continue to monitor.
[2018-06-20] MEDS: ONDANSETRON HCL 4 MG/2 ML VIAL IVP PRN ×2 (00:56→05:01)
[2018-06-20] MEDS: MORPHINE 4 MG/ML INJ. SYRINGE IVP PRN ×6 (00:56→21:04)
--- NOTE | 2018-06-20 02:30 | NUR ---
Nursing Notes Patient awake in bed. States he recently had verbal altercation with roommate and wishes to be moved to another room. chief architect notified and patient moved to different room, all personal belongings with patient. Patient denies any acute distress or pain at this time. IV site patent/clean/dry. Needs addressed. Will continue to monitor.
--- NOTE | 2018-06-20 04:25 | NUR ---
Nursing Notes Patient resting in bed with eyes closed. No acute distress noted, breathing is even and unlabored. IV site patent/clean/dry. Will continue to monitor.
[2018-06-20 05:02] VITALS: BP_SYST 113
[2018-06-20] MEDS: INSULIN ASPART 100 UNITS/ML, 10 ML VIAL SUBCUT SCH ×3 (06:22→17:51)
[2018-06-20 06:23] LABS: CALCIUM 8.8 mg/dL (8.4-11.0); CREATININE 0.94 mg/dL (0.55-1.30); POTASSIUM 3.9 mmol/L (3.5-5.1)
--- NOTE | 2018-06-20 06:45 | NUR ---
Low BS Fingerstick BS @ 67 this mornings fingerstick. Patient refusing ordered PRN D50, requesting apple juice instead. Juice given to patient. Fingerstick BS rechecked post 15min, 73. Additional juice given to patient. Educated patient to eat breakfast once tray arrives, patient verbalized understanding. Patient in no acute distress, asymptomatic.
--- NOTE | 2018-06-20 06:51 | NUR ---
Closing Notes Patient resting in bed, wake. Patient denies any acute distress or pain at this time. Breathing is even and unlabored. IV site patent/clean/dry, no S/S infection/infiltration noted. Needs addressed throughout shift. Call light in hand, fall precautions in place. Will continue to monitor for changes and safety, and endorse all patient care/needs to oncoming nurse.
[2018-06-20 07:10] LABS: BASOPHILS # (AUTO) 0.1 K/uL (0.0-0.2); BASOPHILS % (AUTO) 1.8 % (0.0-2.0); EOSINOPHILS # (AUTO) 0.1 K/uL (0.0-0.4); EOSINOPHILS % (AUTO) 3.3 % (0.0-4.0); HEMATOCRIT 35.7 % (36-54); HEMOGLOBIN 12.4 g/dL (14.0-18.0); LYMPHOCYTES # (AUTO) 2.3 K/uL (1.0-5.5); LYMPHOCYTES % (AUTO) 49.2 % (20.5-51.5); MEAN CORPUSCULAR HEMOGLOBIN 32 pg (27-31); MEAN CORPUSCULAR HGB CONC 35 % (32-36); MEAN CORPUSCULAR VOLUME 91 fL (79.0-98.0); MONOCYTES # (AUTO) 0.4 K/uL (0.0-1.0); MONOCYTES % (AUTO) 9.8 % (1.7-9.3); NEUTROPHILS # (AUTO) 1.6 K/uL (1.8-7.7); NEUTROPHILS % (AUTO) 35.9 % (40.0-70.0); PLATELET COUNT (AUTO) 199 K/uL (130-430); RED BLOOD CELL COUNT(AUTO) 3.93 MIL/uL (4.2-6.2); RED CELL DISTRIBUTION WIDTH 13.4 % (9.0-15.0); WHITE BLOOD COUNT (AUTO) 4.5 K/uL (4.8-10.8)
[2018-06-20 08:00] VITALS: BP_SYST 102
--- NOTE | 2018-06-20 08:30 | NUR ---
OPENING NOTES, PT IS AAOX4, NO SOB, NO DISTRESS. NO N/V. C/O OF ABDOMINAL PAIN. WILL MEDICATE. IV FLUIDS INFUSING WELL. IV ACCESS INTACT AND PATENT. IV SITE NO S/S OF INFILTRATION OF SWELLING. CALL LIGHT IN REACH. BED IN LOW POSITION. PT IS BRP. ENCOURAGED TO CALL FOR PAIN MED AND FOR ANY CONCERNS. WILL CONT TO MONITOR.
[2018-06-20] MEDS: METOCLOPRAMIDE HCL 10 MG TABLET PO SCH ×3 (08:42→20:58)
--- NOTE | 2018-06-20 08:42 | NUR ---
PT GIVEN PAIN MEDICATION FOR ABD PAIN 06/16. WILL CONT TO MONITOR.
[2018-06-20] MEDS: NACL 0.9% 1,000 ML IV SCH ×2 (08:47→18:22)
[2018-06-20 11:36] VITALS: BP_SYST 102
[2018-06-20] MEDS: INSULIN REGULAR, HUMAN 100 UNITS/ML, 10 ML VIAL (novoLIN R) SUBCUT PRN ×3 (11:52→21:02)
--- NOTE | 2018-06-20 13:00 | NUR ---
PT GIVEN PAIN MEDICATION FOR ABD PAIN 06/16.
[2018-06-20 16:33] VITALS: BP_SYST 107
--- NOTE | 2018-06-20 17:57 | NUR ---
PT REFUSED NOVOLOG 15 UNITS SCHEDULED. PT STATED HIS BLOOD SUGAR IS ONLY 250 AND REQUIRES ON THE COVERAGE.
--- NOTE | 2018-06-20 18:25 | NUR ---
CLOSING NOTES, PT HAS STABLE THE WHOLE SHIFT. C/O OF PAIN BUT NO N/V. PAIN MEDS GIVEN REQUESTED BY PT. PT TOLERATED CLEAR AND FULL LIQUID DIET. PT SIGNED CONSENT FOR EGD IN AM BY DR BENEDICT. IV SITE INTACT AND PATENT. WILL ENDORSE TO NIGHT RN.
--- NOTE | 2018-06-20 19:35 | NUR ---
OPENING NOTE RECEIVED PT AND REPORT FROM DAY SHIFT. PT IS SITTING UP IN BED. PT ABLE TO VERBALIZE NEEDS. PT REPORTS PAIN. IV INTACT AND RUNNING IVF PER ORDER. PT ON ROOM AIR. FALL AND SAFETY PRECAUTIONS IN PLACE. BED LOCKED IN LOWEST POSITION. CALL LIGHT WITH PT. WILL CONTINUE TO MONITOR.
[2018-06-20 20:00] VITALS: BP_SYST 114
--- NOTE | 2018-06-20 21:00 | NUR ---
MEDICATION ADMINISTRATION ADMINISTERED MEDICATION PER ORDERS. ADMINISTERED PRN PAIN MEDICATION PER ORDERS. BLOOD SUGAR READING OF 249, COVERAGE GIVEN PER SLIDING SCALE WELL SCHEDULED COVERAGE. CALL LIGHT WITH PT. WILL CONTINUE TO MONITOR.
--- NOTE | 2018-06-20 22:05 | NUR ---
NPO AFTER MID INFORMED PT OF BEING NPO AFTER MIDNIGHT DUE TO PROCEDURE TOMORROW. PT VERBALIZED UNDERSTANDING.
--- NOTE | 2018-06-21 00:23 | NUR ---
ROUNDING NOTE PT IS SLEEPING AT THIS TIME. NO S/S OF DISTRESS OR DISCOMFORT. CALL LIGHT WITH PT. WILL CONTINUE TO MONITOR.
[2018-06-21] MEDS: MORPHINE 4 MG/ML INJ. SYRINGE IVP PRN ×3 (01:08→11:54)
--- NOTE | 2018-06-21 01:08 | NUR ---
PAIN MEDICATION ADMINISTERED PRN PAIN MEDICATION PER ORDERS. PMO BUSINESS ANALYST AT BEDSIDE. WILL CONTINUE TO MONITOR.
[2018-06-21 01:13] VITALS: BP_SYST 112
--- NOTE | 2018-06-21 02:50 | NUR ---
ENDORSEMENT OF PT CARE ENDORSED PT CARE AND SAFETY TO KRUPA OGDEN. PROVIDED SBAR REPORT. PT IN STABLE CONDITION AT THIS TIME. PT SLEEPING. NO S/S OF DISTRESS OR DISCOMFORT. CALL LIGHT WITH PT.
--- NOTE | 2018-06-21 02:50 | NUR ---
Received Endorsement of Patient Received endorsement of patient. Patient resting in bed with eyes closed, easily aroused. Patient denies any acute distress or pain at this time. Breathing is even and unlabored. IV site patent/clean/dry. Denies any needs. Call light in hand, fall precautions in place.
[2018-06-21] MEDS: NACL 0.9% 1,000 ML IV SCH (03:37)
--- NOTE | 2018-06-21 05:00 | NUR ---
Nursing Notes Patient resting in bed, awake. Patient denies any acute distress. Medicated patient for pain per MD orders. Breathing is even and unlabored. IV site patent/clean/dry. Reminded patient of NPO status for procedure in AM, patient verbalized understanding. Needs addressed. Call light in hand, fall precautions in place.
[2018-06-21] MEDS: INSULIN ASPART 100 UNITS/ML, 10 ML VIAL SUBCUT SCH (06:17)
--- NOTE | 2018-06-21 06:43 | NUR ---
Closing Notes Patient resting in bed with eyes closed, easily aroused. Patient denies any acute distress or pain at this time. Breathing is even and unlabored. IV site patent/clean/dry, no S/S infection/infiltration noted. Needs addressed throughout shift. Call light in hand, fall precautions in place. Will continue to monitor for changes and safety, and endorse all patient care/needs to oncoming nurse. Patient has been NPO since midnight for procedure today.
--- NOTE | 2018-06-21 08:00 | NUR ---
initial notes rec patient awake alert with ivf infusing well on the r forearm. no infiltration noted. ambulating on the hallway and juanita well. npo maintained for egd today. call light within reached and knows when to call for assists. bed in low position and side rails up and locked. denies pain at this time. will continue to monitor patient.
[2018-06-21] MEDS ORDERED: SIMETHICONE 40 MG/0.6 ML ML ONE (08:48)
--- NOTE | 2018-06-21 08:56 | NUR ---
rounds pt was taken to gi lab via wheelchair. no osb noted.
[2018-06-21] MEDS: METOCLOPRAMIDE HCL 10 MG TABLET PO SCH (09:00)
[2018-06-21] MEDS: MEPERIDINE HCL/PF 100 MG/ML AMP ONE ×2 (09:12→09:14)
[2018-06-21] MEDS: MIDAZOLAM HCL 5 MG/5 ML VIAL ONE ×5 (09:12→09:20)
[2018-06-21] MEDS ORDERED: DIPHENHYDRAMINE INJ 50 MG/ML VIAL ONE (10:17)
--- NOTE | 2018-06-21 11:00 | NUR ---
rounds patient back from gi lab. dr iraheta was called for diet order. asleep at intervals.
[2018-06-21 12:37] VITALS: BP_SYST 109
--- NOTE | 2018-06-21 13:06 | NUR ---
AMA: PATIENT WANTS TO LEAVE AMA, STATES "I JUST HAVE GASTRITIS. I JUST NEED TO WATCH WHAT I EAT, AND I HAVE MY MEDICATION,REGLAN, AT HOME." TRY TO EXPLAIN TO HIM THAT HE MIGHT NEED NEW PRESCRIPTION. HE JUST NEED TO WAIT FOR Mohini ALBARRAN TO SEE HIM. THE PATIENT IS STILL INSISTING TO GO HOME NOW. HAVE HIM SIGN AMA FORM. REMOVE IV SITE, APPLY PRESSURE DRESSING. ID BAND REMOVED. THEN HE WALKS OUT WITH STEADY GAIT. MADDIE ALBARRAN HAS BEEN PAGED, BUT HAS NOT CALLED BACK.
--- NOTE | 2018-06-21 13:26 | NUR ---
DR. MADDIE LANDEROS CALLS AND HE IS AWARE OF THE PATIENT LEFT AMA.
== END 2018-06-21 13:06 | disposition left against medical advice (07) | DRG 241 ==
LOC: SED 09:50 → SMU 12:40
PROVIDERS: ADMIT Preventive Medicine Preventive Medicine/Occupational Environmental Medicine; ATTEND Preventive Medicine Preventive Medicine/Occupational Environmental Medicine
PROC: 0DB38ZX Excision of Lower Esophagus, Via Natural or Artificial Opening Endoscopic, Diagnostic (ICD-10-PCS; 2018-06-21)
PROC: 0DB68ZX Excision of Stomach, Via Natural or Artificial Opening Endoscopic, Diagnostic (ICD-10-PCS; principal; 2018-06-21 09:00)
DX: K29.70 Gastritis, unspecified, without bleeding (principal); N17.9 Acute kidney failure, unspecified; E10.22 Type 1 diabetes mellitus with diabetic chronic kidney disease; K31.84 Gastroparesis; E87.1 Hypo-osmolality and hyponatremia; E10.65 Type 1 diabetes mellitus with hyperglycemia; E10.43 Type 1 diabetes mellitus with diabetic autonomic (poly)neuropathy; K20.9 Esophagitis, unspecified; B19.20 Unspecified viral hepatitis C without hepatic coma; D64.9 Anemia, unspecified; G89.29 Other chronic pain; R74.0 Nonspecific elevation of levels of transaminase and lactic acid dehydrogenase [LDH]; N18.9 Chronic kidney disease, unspecified; Z79.4 Long term (current) use of insulin; Z88.8 Allergy status to other drugs, medicaments and biological substances; Z79.899 Other long term (current) drug therapy
CPT/HCPCS: 36415; 43239; 80048; 80053; 82150-TC; 82962; 83690-TC; 85025; 85610-TC; 85730-TC; 87081; 88305; 88312; 88313; 96361; 96374; 96375; 99285; J1200; J1815; J2175; J2250; J2270; J2405; J7030; J8597

== ENCOUNTER 2018-06-23 10:18 | Emergency (ER) | payer MEDICAID ==
[~2018-06-23] VITALS: Ht 188 cm; Wt 88.5 kg
[2018-06-23 10:18] VITALS: BP_SYST 155
--- NOTE | 2018-06-23 10:18 | NUR ---
BROUGHT BACK TO BED #3 AND TRIAGED. REPORT GIVEN TO ANTONIO
--- NOTE | 2018-06-23 10:34 | NUR ---
Pt brought by self, A&Ox4, pt presents to ER with abdominal pain, N/V, skin pink and warm, respirations even and unlabored, cap refill <3, denies bleeding.
--- NOTE | 2018-06-23 10:35 | NUR ---
Dr Wilson at bedside examining patient
[2018-06-23] MEDS ORDERED: NACL 0.9% 1,000 ML IV ONE (11:00)
[2018-06-23] MEDS ORDERED: MAG HYDROX/AL HYDROX/SIMETH 30 ML, LIDOCAINE VISCOUS 2% 15ML (PO) 10 ML, BELLADONNA ALK... PO ONE ×3 (11:00)
[2018-06-23] MEDS ORDERED: PANTOPRAZOLE SODIUM 40 MG/VIAL (PROTONIX) IVP ONE (11:00)
[2018-06-23] MEDS ORDERED: ONDANSETRON HCL 4 MG/2 ML VIAL ONE (11:06)
[2018-06-23] MEDS ORDERED: KETOROLAC TROMETHAMINE 30 MG VIAL IVP ONE (11:15)
[2018-06-23 11:20] LABS: CALCIUM 9.6 mg/dL (8.4-11.0); CREATININE 0.8 mg/dL (0.55-1.30); POTASSIUM 4.3 mmol/L (3.5-5.1)
[2018-06-23 11:22] LABS: BASOPHILS # (AUTO) 0.1 K/uL (0.0-0.2); BASOPHILS % (AUTO) 1.6 % (0.0-2.0); EOSINOPHILS # (AUTO) 0.1 K/uL (0.0-0.4); HEMATOCRIT 39.1 % (36-54); HEMOGLOBIN 13.4 g/dL (14.0-18.0); LYMPHOCYTES # (AUTO) 1.3 K/uL (1.0-5.5); LYMPHOCYTES % (AUTO) 23.1 % (20.5-51.5); MEAN CORPUSCULAR HEMOGLOBIN 31 pg (27-31); MEAN CORPUSCULAR HGB CONC 34 % (32-36); MEAN CORPUSCULAR VOLUME 90 fL (79.0-98.0); MONOCYTES # (AUTO) 0.4 K/uL (0.0-1.0); MONOCYTES % (AUTO) 7.1 % (1.7-9.3); NEUTROPHILS # (AUTO) 3.6 K/uL (1.8-7.7); NEUTROPHILS % (AUTO) 67.2 % (40.0-70.0); PLATELET COUNT (AUTO) 226 K/uL (130-430); RED BLOOD CELL COUNT(AUTO) 4.32 MIL/uL (4.2-6.2); RED CELL DISTRIBUTION WIDTH 13.2 % (9.0-15.0); WHITE BLOOD COUNT (AUTO) 5.5 K/uL (4.8-10.8)
[2018-06-23 11:25] LABS: ALBUMIN 4.1 g/dL (3.4-4.8); TOTAL BILIRUBIN 1.4 mg/dL (0.0-1.0)
[2018-06-23] MEDS ORDERED: ONDANSETRON HCL 4 MG/2 ML VIAL IVP ONE (11:30)
[2018-06-23 11:41] LABS: BARBITURATE, URINE NEGATIVE (NEG <=200); METHAMPHETAMINES SCREEN,URINE NEGATIVE (NEG <=500); URINE AMPHETAMINE NEGATIVE (NEG <=500); URINE METHADONE NEGATIVE (NEG <=200)
[2018-06-23 11:42] LABS: BENZODIAZEPINE, URINE NEGATIVE (NEG <=150); CANNABINOID, URINE POSITIVE (NEG <=50); COCAINE, URINE NEGATIVE (NEG <=150); OPIATE, URINE NEGATIVE (NEG <=100); PHENCYCLIDINE SCREEN,URINE NEGATIVE (NEG <=25); UR TRICYCLIC ANTIDEPRESSANTS NEGATIVE (NEG <=300); URINE OXYCODONE SCREEN NEGATIVE (NEG <=100); URINE PROPOXYPHENE SCREEN NEGATIVE (NEG <=300)
[2018-06-23] MEDS ORDERED: MORPHINE 2 MG/ML INJ. SYRINGE IVP ONE (12:30)
--- NOTE | 2018-06-23 13:30 | NUR ---
Pt ambualted in non slip shoes with steady gait to bathroom
--- NOTE | 2018-06-23 14:48 | NUR ---
Pt was offered discharge paperwork, pt states "I'm not getting any better, if I leave, I will just come back."
--- NOTE | 2018-06-23 14:52 | NUR ---
Dr. Wilson notified of pt's comments regarding discharge. Hospitalist to be paged.
[2018-06-23 15:23] VITALS: BP_SYST 136
--- NOTE | 2018-06-23 15:23 | NUR ---
Patient given written and verbal discharge instructions and verbalizes understanding. ER MD Wilson discussed with patient the results and treatment provided. Patient in stable condition. ID arm band removed. IV catheter removed intact and dressing applied, no active bleeding. No Rx given. Patient educated on pain management and to follow up with PMD. Pain Scale 4. Opportunity for questions provided and answered. Medication side effect fact sheet provided.
== END 2018-06-23 15:23 | disposition home or self-care (01) ==
LOC: SED 10:18
DX: G89.29 Other chronic pain (principal); E10.43 Type 1 diabetes mellitus with diabetic autonomic (poly)neuropathy; K31.84 Gastroparesis; Z86.19 Personal history of other infectious and parasitic diseases; Z88.8 Allergy status to other drugs, medicaments and biological substances; Z79.4 Long term (current) use of insulin
CPT/HCPCS: 36415; 80053; 80307; 85025; 96361; 96374; 96375; 99284; C9113; J1885; J2001; J2270; J2405; J7030

== ENCOUNTER 2018-07-01 09:30 | Emergency (ER) | payer MEDICAID ==
[~2018-07-01] VITALS: Ht 188 cm; Wt 86.2 kg
[2018-07-01 09:30] VITALS: BP_SYST 188
[2018-07-01] MEDS ORDERED: NACL 0.9% 1,000 ML IV ONE (09:58)
[2018-07-01] MEDS ORDERED: HALOPERIDOL LACTATE 5 MG/ML VIAL IVP ONE (10:00)
[2018-07-01] MEDS ORDERED: DIPHENHYDRAMINE INJ 50 MG/ML VIAL IVP ONE ×2 (10:00)
[2018-07-01 10:29] LABS: BASOPHILS # (AUTO) 0.1 K/uL (0.0-0.2); EOSINOPHILS % (AUTO) 0.8 % (0.0-4.0); HEMOGLOBIN 13.5 g/dL (14.0-18.0); LYMPHOCYTES # (AUTO) 1.1 K/uL (1.0-5.5); LYMPHOCYTES % (AUTO) 22.4 % (20.5-51.5); MEAN CORPUSCULAR HEMOGLOBIN 31 pg (27-31); MEAN CORPUSCULAR HGB CONC 35 % (32-36); MEAN CORPUSCULAR VOLUME 90 fL (79.0-98.0); MONOCYTES # (AUTO) 0.4 K/uL (0.0-1.0); MONOCYTES % (AUTO) 7.5 % (1.7-9.3); NEUTROPHILS # (AUTO) 3.4 K/uL (1.8-7.7); NEUTROPHILS % (AUTO) 68.3 % (40.0-70.0); PLATELET COUNT (AUTO) 281 K/uL (130-430); RED BLOOD CELL COUNT(AUTO) 4.36 MIL/uL (4.2-6.2); RED CELL DISTRIBUTION WIDTH 13.2 % (9.0-15.0)
[2018-07-01 10:37] LABS: CALCIUM 9.1 mg/dL (8.4-11.0); CREATININE 0.87 mg/dL (0.55-1.30); POTASSIUM 3.9 mmol/L (3.5-5.1)
[2018-07-01 10:41] LABS: ALBUMIN 4.2 g/dL (3.4-4.8); TOTAL BILIRUBIN 2.3 mg/dL (0.0-1.0)
[2018-07-01] MEDS ORDERED: METOCLOPRAMIDE HCL 10 MG/2 ML VIAL IVP ONE (11:30)
[2018-07-01] MEDS ORDERED: fentaNYL CITRATE/PF 100 MCG/2 ML AMP IVP ONE (11:30)
[2018-07-01 12:27] VITALS: BP_SYST 172
== END 2018-07-01 12:24 | disposition home or self-care (01) ==
LOC: SED 09:30
DX: G89.29 Other chronic pain (principal); E10.43 Type 1 diabetes mellitus with diabetic autonomic (poly)neuropathy; K31.84 Gastroparesis; K92.0 Hematemesis; Z86.19 Personal history of other infectious and parasitic diseases; Z88.8 Allergy status to other drugs, medicaments and biological substances
CPT/HCPCS: 36415; 80053; 83690; 85025; 96361; 96374; 96375; 99284; J1200; J1630; J2765; J3010; J7030

== ENCOUNTER 2018-07-12 17:14 | Emergency (ER) | payer MEDICAID ==
[~2018-07-12] VITALS: Ht 188 cm; Wt 84.8 kg
[2018-07-12 17:23] VITALS: BP_SYST 147
[2018-07-12] MEDS ORDERED: ONDANSETRON HCL 4 MG/2 ML VIAL IVP ONE (19:30)
[2018-07-12] MEDS ORDERED: NACL 0.9% 1,000 ML IV ONE (19:30)
[2018-07-12] MEDS ORDERED: MORPHINE 4 MG/ML INJ. SYRINGE IVP ONE (19:30)
[2018-07-12] MEDS ORDERED: KETOROLAC TROMETHAMINE 30 MG VIAL IVP ONE (19:30)
[2018-07-12 20:10] LABS: BASOPHILS % (AUTO) 0.3 % (0.0-2.0); EOSINOPHILS % (AUTO) 0.7 % (0.0-4.0); HEMATOCRIT 38.9 % (36-54); HEMOGLOBIN 13.3 g/dL (14.0-18.0); LYMPHOCYTES % (AUTO) 14.9 % (20.5-51.5); MEAN CORPUSCULAR HEMOGLOBIN 31 pg (27-31); MEAN CORPUSCULAR HGB CONC 34 % (32-36); MEAN CORPUSCULAR VOLUME 91 fL (79.0-98.0); MONOCYTES # (AUTO) 0.4 K/uL (0.0-1.0); MONOCYTES % (AUTO) 6.1 % (1.7-9.3); NEUTROPHILS # (AUTO) 5.1 K/uL (1.8-7.7); PLATELET COUNT (AUTO) 172 K/uL (130-430); RED BLOOD CELL COUNT(AUTO) 4.26 MIL/uL (4.2-6.2); RED CELL DISTRIBUTION WIDTH 13.7 % (9.0-15.0); WHITE BLOOD COUNT (AUTO) 6.5 K/uL (4.8-10.8)
[2018-07-12 20:20] LABS: ALBUMIN 4.1 g/dL (3.4-4.8); CALCIUM 9.4 mg/dL (8.4-11.0); CREATININE 1.01 mg/dL (0.55-1.30); POTASSIUM 4.2 mmol/L (3.5-5.1); TOTAL BILIRUBIN 1.6 mg/dL (0.0-1.0)
[2018-07-12 23:07] VITALS: BP_SYST 136
== END 2018-07-12 23:07 | disposition home or self-care (01) ==
LOC: SED 17:14
DX: E10.43 Type 1 diabetes mellitus with diabetic autonomic (poly)neuropathy (principal); K31.84 Gastroparesis; R11.2 Nausea with vomiting, unspecified; Z88.8 Allergy status to other drugs, medicaments and biological substances; Z79.899 Other long term (current) drug therapy; Z86.19 Personal history of other infectious and parasitic diseases
CPT/HCPCS: 36415; 80053; 83690; 85025; 96361; 96374; 96375; 99284; J1885; J2270; J2405; J7030

== ENCOUNTER 2018-08-03 16:19 | Inpatient (IN) | payer MEDICAID ==
[2018-08-03] VITALS (7 sets, daily range): BP systolic 105–141
[~2018-08-03] VITALS: Ht 188 cm; Wt 78.0 kg
[2018-08-03] MEDS ORDERED: NACL 0.9% 1,000 ML IV ONE ×3 (16:48→22:00)
[2018-08-03] MEDS ORDERED: ONDANSETRON HCL 4 MG/2 ML VIAL IVP ONE (17:00)
[2018-08-03] MEDS ORDERED: KETOROLAC TROMETHAMINE 30 MG VIAL IVP ONE (17:00)
[2018-08-03 17:09] LABS: HEMATOCRIT 42.4 % (36-54); HEMOGLOBIN 14.3 g/dL (14.0-18.0); MEAN CORPUSCULAR HEMOGLOBIN 31 pg (27-31); MEAN CORPUSCULAR HGB CONC 34 % (32-36); MEAN CORPUSCULAR VOLUME 93 fL (79.0-98.0); PLATELET COUNT (AUTO) 474 K/uL (130-430); RED BLOOD CELL COUNT(AUTO) 4.57 MIL/uL (4.2-6.2); RED CELL DISTRIBUTION WIDTH 13.9 % (9.0-15.0); WHITE BLOOD COUNT (AUTO) 22.3 K/uL (4.8-10.8)
[2018-08-03 17:21] LABS: ACETONE, SERUM SMALL (NEGATIVE)
[2018-08-03 17:40] LABS: BAND % (MANUAL) 15 % (0-6); BASOPHILS % (MANUAL) 0 % (0-2); EOSINOPHILS % (MANUAL) 0 % (0-7); LYMPHOCYTES % (MANUAL) 3 % (20-46); MONOCYTES % (MANUAL) 7 % (0-11)
[2018-08-03] MEDS ORDERED: PIPERACILLIN/TAZO 3.375 GM in NS 50 ML IV ONE (18:00)
[2018-08-03] MEDS ORDERED: INSULIN REGULAR, HUMAN 10 UNITS/0.1 ML INJ IVP ONE (18:00)
[2018-08-03 18:03] LABS: ANION GAP 33 (5-15); CALCIUM 8.7 mg/dL (8.4-11.0); POTASSIUM 5.6 mmol/L (3.5-5.1); UREA NITROGEN, BLOOD 99 mg/dL (8-21)
[2018-08-03 18:12] LABS: ALANINE AMINOTRANSFERASE 55 U/L (12-78); ALBUMIN 3.6 g/dL (3.4-4.8); ASPARTATE AMINOTRANSFERASE 13 U/L (10-37); TOTAL BILIRUBIN 1.7 mg/dL (0.0-1.0)
[2018-08-03 18:14] LABS: SODIUM SERUM 119 mmol/L (136-145)
[2018-08-03] MEDS ORDERED: PIPERACILLIN/TAZOBACTAM 3.375 GM/VIAL (ZOSYN) IV ONE (18:14)
[2018-08-03 18:15] LABS: CHLORIDE 75 mmol/L (98-107)
[2018-08-03 18:16] LABS: ACETAMINOPHEN < 1 ug/mL (1-30); ALCOHOL, BLOOD < 3 mg/dL (<10)
[2018-08-03] MEDS ORDERED: INSULIN REGULAR, HUMAN 100 UNITS in NS 99 ML IV PRN ×4 (18:30→23:00)
[2018-08-03] MEDS ORDERED: ALBUTEROL SULFATE 0.083% 2.5 MG/3 ML VIAL.NEB INH PRN (18:30)
[2018-08-03] MEDS ORDERED: HYDROcodone/ACETAMIN 5-325 MG TAB (NORCO/ VICODIN) PO PRN (18:30)
[2018-08-03] MEDS ORDERED: DEXTROSE 50% JECT 50 ML DISP.SYRIN IVP PRN (18:30)
[2018-08-03] MEDS ORDERED: ACETAMINOPHEN 325 MG TABLET PO PRN (18:30)
[2018-08-03 18:38] LABS: GLUCOSE 1008 mg/dL (70-99)
[2018-08-03] MEDS ORDERED: NS 1000 ML IV.SOLN IV ONE (19:00)
[2018-08-03] MEDS: NACL 0.9% 1,000 ML IV SCH (20:15)
[2018-08-03] MEDS ORDERED: COMMUNICATION ORDER XX ONE ×2 (22:00→23:00)
[2018-08-03 23:38] LABS: CALCIUM 8.2 mg/dL (8.4-11.0); CREATININE 2.65 mg/dL (0.55-1.30); PHOSPHORUS 3.6 mg/dL (2.7-4.5); POTASSIUM 4.2 mmol/L (3.5-5.1)
[2018-08-03 23:39] LABS: BILIRUBIN,URINE NEGATIVE (NEGATIVE); BLOOD, URINE NEGATIVE (NEGATIVE); CLARITY/URINE CLEAR (CLEAR); COLOR,URINE YELLOW (YELLOW); GLUCOSE,URINE 3+ (NEGATIVE); KETONES,URINE 3+ (NEGATIVE); LEUKOCYTE ESTERASE ,URINE NEGATIVE (NEGATIVE); NITRITE, URINE NEGATIVE (NEGATIVE); PROTEIN URINE NEGATIVE (NEGATIVE); UROBILINOGEN,URINE 0.2 (0.2-1.0)
[2018-08-03 23:46] LABS: URINE AMPHETAMINE POSITIVE (NEG <=500)
[2018-08-03 23:47] LABS: BARBITURATE, URINE NEGATIVE (NEG <=200); BENZODIAZEPINE, URINE NEGATIVE (NEG <=150); CANNABINOID, URINE NEGATIVE (NEG <=50); COCAINE, URINE NEGATIVE (NEG <=150); METHAMPHETAMINES SCREEN,URINE NEGATIVE (NEG <=500); OPIATE, URINE NEGATIVE (NEG <=100); PHENCYCLIDINE SCREEN,URINE NEGATIVE (NEG <=25); UR TRICYCLIC ANTIDEPRESSANTS NEGATIVE (NEG <=300); URINE METHADONE NEGATIVE (NEG <=200); URINE OXYCODONE SCREEN NEGATIVE (NEG <=100); URINE PROPOXYPHENE SCREEN NEGATIVE (NEG <=300)
[2018-08-03] MEDS: PIPERACILLIN/TAZO 3.375/DEX-IS 50 ML IV SCH (23:53)
[2018-08-04] VITALS (25 sets, daily range): BP systolic 115–159
[2018-08-04] MEDS: NACL 0.9% 1,000 ML IV SCH ×2 (01:53→21:14)
[2018-08-04 03:46] LABS: CALCIUM 7.9 mg/dL (8.4-11.0); CREATININE 2.48 mg/dL (0.55-1.30); POTASSIUM 3.8 mmol/L (3.5-5.1)
[2018-08-04 03:50] LABS: PHOSPHORUS 3.6 mg/dL (2.7-4.5)
[2018-08-04] MEDS: PIPERACILLIN/TAZO 3.375/DEX-IS 50 ML IV SCH ×3 (05:16→17:30)
[2018-08-04 06:28] LABS: BASOPHILS % (AUTO) 0.2 % (0.0-2.0); EOSINOPHILS % (AUTO) 0.1 % (0.0-4.0); HEMATOCRIT 35.1 % (36-54); HEMOGLOBIN 12.3 g/dL (14.0-18.0); LYMPHOCYTES # (AUTO) 1.7 K/uL (1.0-5.5); LYMPHOCYTES % (AUTO) 12.2 % (20.5-51.5); MEAN CORPUSCULAR HEMOGLOBIN 32 pg (27-31); MEAN CORPUSCULAR HGB CONC 35 % (32-36); MEAN CORPUSCULAR VOLUME 90 fL (79.0-98.0); MONOCYTES # (AUTO) 1.2 K/uL (0.0-1.0); MONOCYTES % (AUTO) 9.1 % (1.7-9.3); NEUTROPHILS # (AUTO) 10.6 K/uL (1.8-7.7); NEUTROPHILS % (AUTO) 78.4 % (40.0-70.0); PLATELET COUNT (AUTO) 318 K/uL (130-430); RED BLOOD CELL COUNT(AUTO) 3.91 MIL/uL (4.2-6.2); RED CELL DISTRIBUTION WIDTH 14.1 % (9.0-15.0); WHITE BLOOD COUNT (AUTO) 13.5 K/uL (4.8-10.8)
[2018-08-04] MEDS: KCL 20 mEq in NS 1000 mL 1,000 ML IV SCH ×4 (07:32→20:07)
[2018-08-04 07:47] LABS: CALCIUM 7.5 mg/dL (8.4-11.0); CREATININE 2.72 mg/dL (0.55-1.30); POTASSIUM 3.7 mmol/L (3.5-5.1)
[2018-08-04 08:03] LABS: ACETONE, SERUM TRACE (NEGATIVE)
[2018-08-04 08:03] LABS: PHOSPHORUS 4.3 mg/dL (2.7-4.5)
[2018-08-04 08:05] LABS: ANION GAP 8 (5-15); CHLORIDE 95 mmol/L (98-107); GLUCOSE 316 mg/dL (70-99); POTASSIUM 3.6 mmol/L (3.5-5.1); SODIUM SERUM 133 mmol/L (136-145)
[2018-08-04 08:06] LABS: CALCIUM 7.9 mg/dL (8.4-11.0); CREATININE 2.61 mg/dL (0.55-1.30); GFR AFRICAN AMERICAN 38 mL/min (>90); UREA NITROGEN, BLOOD 89 mg/dL (8-21)
[2018-08-04 08:07] LABS: ALANINE AMINOTRANSFERASE 47 U/L (12-78); ALBUMIN 3.1 g/dL (3.4-4.8); ASPARTATE AMINOTRANSFERASE 13 U/L (10-37); TOTAL BILIRUBIN 0.8 mg/dL (0.0-1.0)
[2018-08-04] MEDS: ONDANSETRON HCL 4 MG/2 ML VIAL IVP PRN ×2 (09:02→14:38)
[2018-08-04] MEDS: MORPHINE 4 MG/ML INJ. SYRINGE IVP PRN ×3 (09:07→20:08)
[2018-08-04] MEDS ORDERED: INSULIN REGULAR, HUMAN 100 UNITS in NS 99 ML IV PRN ×4 (10:30→17:45)
[2018-08-04 11:55] LABS: CREATININE 2.79 mg/dL (0.55-1.30); POTASSIUM 3.9 mmol/L (3.5-5.1)
[2018-08-04 12:00] LABS: PHOSPHORUS 3.1 mg/dL (2.7-4.5)
[2018-08-04 12:40] LABS: CALCIUM 6.9 mg/dL (8.4-11.0)
[2018-08-04] MEDS ORDERED: CALCIUM GLUCONATE 2 GM in NS 100 ML IV ONE (15:45)
[2018-08-04 16:17] LABS: CALCIUM 7.4 mg/dL (8.4-11.0); CREATININE 2.89 mg/dL (0.55-1.30); PHOSPHORUS 2.2 mg/dL (2.7-4.5); POTASSIUM 3.8 mmol/L (3.5-5.1)
[2018-08-04 19:21] LABS: CALCIUM 7.7 mg/dL (8.4-11.0); CREATININE 3.09 mg/dL (0.55-1.30); POTASSIUM 4.1 mmol/L (3.5-5.1)
[2018-08-04 22:54] LABS: CALCIUM 7.5 mg/dL (8.4-11.0); CREATININE 3.1 mg/dL (0.55-1.30); POTASSIUM 4.1 mmol/L (3.5-5.1)
[2018-08-04 23:01] LABS: PHOSPHORUS 1.6 mg/dL (2.7-4.5)
[2018-08-05] VITALS (24 sets, daily range): BP systolic 129–169
[2018-08-05] MEDS: PIPERACILLIN/TAZO 3.375/DEX-IS 50 ML IV SCH ×4 (00:24→18:08)
[2018-08-05] MEDS ORDERED: INSULIN REGULAR, HUMAN 100 UNITS in NS 99 ML IV PRN ×6 (00:30→17:45)
[2018-08-05] MEDS: MORPHINE 4 MG/ML INJ. SYRINGE IVP PRN ×4 (02:06→20:48)
[2018-08-05] MEDS: ONDANSETRON HCL 4 MG/2 ML VIAL IVP PRN ×5 (02:06→20:47)
[2018-08-05] MEDS: KCL 20 mEq in NS 1000 mL 1,000 ML IV SCH ×3 (04:21→18:08)
[2018-08-05] MEDS: NACL 0.9% 1,000 ML IV SCH ×3 (05:03→20:47)
[2018-08-05 06:35] LABS: CALCIUM 7.7 mg/dL (8.4-11.0); POTASSIUM 4.3 mmol/L (3.5-5.1)
[2018-08-05 06:36] LABS: CREATININE 2.92 mg/dL (0.55-1.30); PHOSPHORUS 1.9 mg/dL (2.7-4.5)
[2018-08-05 11:18] LABS: CALCIUM 7.6 mg/dL (8.4-11.0); CREATININE 2.9 mg/dL (0.55-1.30); POTASSIUM 4.2 mmol/L (3.5-5.1)
[2018-08-05] MEDS ORDERED: MORPHINE 2 MG/ML INJ. SYRINGE ONE (16:36)
[2018-08-05 20:39] LABS: CALCIUM 7.3 mg/dL (8.4-11.0); CREATININE 2.84 mg/dL (0.55-1.30); PHOSPHORUS 1.9 mg/dL (2.7-4.5); POTASSIUM 4.7 mmol/L (3.5-5.1)
[2018-08-06] VITALS (16 sets, daily range): BP systolic 128–157
[2018-08-06] MEDS: PIPERACILLIN/TAZO 3.375/DEX-IS 50 ML IV SCH ×4 (00:03→17:38)
[2018-08-06] MEDS: ONDANSETRON HCL 4 MG/2 ML VIAL IVP PRN ×5 (00:47→20:59)
[2018-08-06] MEDS: MORPHINE 4 MG/ML INJ. SYRINGE IVP PRN ×5 (00:47→21:00)
[2018-08-06] MEDS: NACL 0.9% 1,000 ML IV SCH ×4 (04:02→21:21)
[2018-08-06 06:49] LABS: CALCIUM 7.5 mg/dL (8.4-11.0); CREATININE 2.65 mg/dL (0.55-1.30); POTASSIUM 4.4 mmol/L (3.5-5.1)
[2018-08-06 06:54] LABS: PHOSPHORUS 1.8 mg/dL (2.7-4.5)
[2018-08-06] MEDS ORDERED: INSULIN REGULAR, HUMAN 100 UNITS/ML, 10 ML VIAL (novoLIN R) SUBCUT PRN (08:00)
[2018-08-06] MEDS: INSULIN ASPART 100 UNITS/ML, 10 ML VIAL (NovoLOG) SUBCUT PRN ×3 (12:32→21:20)
[2018-08-06] MEDS: INSULIN ASPART 100 UNITS/ML, 10 ML VIAL SUBCUT SCH ×2 (13:30→18:00)
[2018-08-07] VITALS (7 sets, daily range): BP systolic 146–170
[2018-08-07] MEDS: PIPERACILLIN/TAZO 3.375/DEX-IS 50 ML IV SCH ×4 (00:55→17:07)
[2018-08-07] MEDS: ONDANSETRON HCL 4 MG/2 ML VIAL IVP PRN ×6 (00:59→21:23)
[2018-08-07] MEDS: MORPHINE 4 MG/ML INJ. SYRINGE IVP PRN ×6 (01:00→21:22)
[2018-08-07] MEDS: NACL 0.9% 1,000 ML IV SCH ×3 (05:35→23:23)
[2018-08-07] MEDS: INSULIN ASPART 100 UNITS/ML, 10 ML VIAL (NovoLOG) SUBCUT PRN ×3 (05:50→17:17)
[2018-08-07 07:04] LABS: CALCIUM 7.7 mg/dL (8.4-11.0); CREATININE 2.47 mg/dL (0.55-1.30); POTASSIUM 4.6 mmol/L (3.5-5.1)
[2018-08-07] MEDS: INSULIN ASPART 100 UNITS/ML, 10 ML VIAL SUBCUT SCH ×3 (08:00→18:00)
[2018-08-07] MEDS ORDERED: METOCLOPRAMIDE HCL 10 MG/2 ML VIAL IVP PRN (10:45)
[2018-08-08 00:35] VITALS: BP_SYST 149
[2018-08-08] MEDS: ONDANSETRON HCL 4 MG/2 ML VIAL IVP PRN ×6 (00:53→20:50)
[2018-08-08] MEDS: MORPHINE 4 MG/ML INJ. SYRINGE IVP PRN ×6 (00:53→20:51)
[2018-08-08] MEDS: PIPERACILLIN/TAZO 3.375/DEX-IS 50 ML IV SCH ×4 (00:54→17:09)
[2018-08-08] MEDS: NACL 0.9% 1,000 ML IV SCH ×4 (02:15→17:10)
[2018-08-08 06:40] LABS: CALCIUM 7.8 mg/dL (8.4-11.0); CREATININE 2.11 mg/dL (0.55-1.30); POTASSIUM 4.1 mmol/L (3.5-5.1)
[2018-08-08 06:50] LABS: ALBUMIN 1.9 g/dL (3.4-4.8); TOTAL BILIRUBIN 1.1 mg/dL (0.0-1.0)
[2018-08-08 07:30] VITALS: BP_SYST 158
[2018-08-08] MEDS: INSULIN ASPART 100 UNITS/ML, 10 ML VIAL (NovoLOG) SUBCUT PRN ×2 (07:51→11:34)
[2018-08-08] MEDS: INSULIN ASPART 100 UNITS/ML, 10 ML VIAL SUBCUT SCH ×3 (08:00→17:14)
[2018-08-08 08:02] LABS: BASOPHILS % (AUTO) 0.1 % (0.0-2.0); EOSINOPHILS # (AUTO) 0.1 K/uL (0.0-0.4); EOSINOPHILS % (AUTO) 1.2 % (0.0-4.0); HEMATOCRIT 28.7 % (36-54); HEMOGLOBIN 9.8 g/dL (14.0-18.0); LYMPHOCYTES # (AUTO) 1.1 K/uL (1.0-5.5); LYMPHOCYTES % (AUTO) 19.2 % (20.5-51.5); MEAN CORPUSCULAR HEMOGLOBIN 30 pg (27-31); MEAN CORPUSCULAR HGB CONC 34 % (32-36); MEAN CORPUSCULAR VOLUME 89 fL (79.0-98.0); MONOCYTES # (AUTO) 0.5 K/uL (0.0-1.0); MONOCYTES % (AUTO) 8.7 % (1.7-9.3); NEUTROPHILS # (AUTO) 4.2 K/uL (1.8-7.7); NEUTROPHILS % (AUTO) 70.8 % (40.0-70.0); PLATELET COUNT (AUTO) 174 K/uL (130-430); RED BLOOD CELL COUNT(AUTO) 3.23 MIL/uL (4.2-6.2); RED CELL DISTRIBUTION WIDTH 13.8 % (9.0-15.0); WHITE BLOOD COUNT (AUTO) 5.9 K/uL (4.8-10.8)
[2018-08-08] MEDS: PANTOPRAZOLE SODIUM 40 MG/VIAL (PROTONIX) IVP SCH (09:28)
[2018-08-08 17:05] VITALS: BP_SYST 149
[2018-08-08 21:00] VITALS: BP_SYST 159
[2018-08-09] MEDS: PIPERACILLIN/TAZO 3.375/DEX-IS 50 ML IV SCH ×5 (00:03→23:09)
[2018-08-09] MEDS: NACL 0.9% 1,000 ML IV SCH ×5 (00:30→21:21)
[2018-08-09] MEDS: ONDANSETRON HCL 4 MG/2 ML VIAL IVP PRN ×5 (00:30→17:23)
[2018-08-09] MEDS: MORPHINE 4 MG/ML INJ. SYRINGE IVP PRN ×6 (00:31→21:23)
[2018-08-09 07:48] LABS: ALBUMIN 1.9 g/dL (3.4-4.8); CALCIUM 7.9 mg/dL (8.4-11.0); CREATININE 1.77 mg/dL (0.55-1.30); TOTAL BILIRUBIN 1.1 mg/dL (0.0-1.0)
[2018-08-09] MEDS: INSULIN ASPART 100 UNITS/ML, 10 ML VIAL SUBCUT SCH ×3 (08:00→17:33)
[2018-08-09] MEDS: PANTOPRAZOLE SODIUM 40 MG/VIAL (PROTONIX) IVP SCH (08:07)
[2018-08-09 08:16] VITALS: BP_SYST 148
[2018-08-09] MEDS: INSULIN ASPART 100 UNITS/ML, 10 ML VIAL (NovoLOG) SUBCUT PRN (11:34)
[2018-08-09 12:08] VITALS: BP_SYST 145
[2018-08-09 17:37] VITALS: BP_SYST 160
[2018-08-09 21:00] VITALS: BP_SYST 174
[2018-08-10] MEDS ORDERED: cloNIDine HCL 0.1 MG TABLET PO PRN (01:45)
[2018-08-10 03:25] VITALS: BP_SYST 162
[2018-08-10] MEDS: ONDANSETRON HCL 4 MG/2 ML VIAL IVP PRN ×4 (03:26→20:33)
[2018-08-10] MEDS: MORPHINE 4 MG/ML INJ. SYRINGE IVP PRN ×3 (03:27→12:09)
[2018-08-10] MEDS: PIPERACILLIN/TAZO 3.375/DEX-IS 50 ML IV SCH (05:40)
[2018-08-10] MEDS: NACL 0.9% 1,000 ML IV SCH ×2 (05:40→14:22)
[2018-08-10 07:52] LABS: CALCIUM 7.6 mg/dL (8.4-11.0); CREATININE 1.66 mg/dL (0.55-1.30); POTASSIUM 3.8 mmol/L (3.5-5.1)
[2018-08-10 08:00] VITALS: BP_SYST 140
[2018-08-10 08:00] LABS: ALBUMIN 1.9 g/dL (3.4-4.8); TOTAL BILIRUBIN 1.1 mg/dL (0.0-1.0)
[2018-08-10] MEDS: INSULIN ASPART 100 UNITS/ML, 10 ML VIAL SUBCUT SCH ×3 (08:00→17:25)
[2018-08-10] MEDS: PANTOPRAZOLE SODIUM 40 MG/VIAL (PROTONIX) IVP SCH (08:06)
[2018-08-10 09:50] VITALS: BP_SYST 162
[2018-08-10] MEDS: INSULIN ASPART 100 UNITS/ML, 10 ML VIAL (NovoLOG) SUBCUT PRN ×2 (11:30→17:24)
[2018-08-10 12:54] VITALS: BP_SYST 157
[2018-08-10] MEDS: HYDROcodone/ACETAMIN 10-325 MG TAB PO PRN ×2 (16:33→20:33)
[2018-08-10 16:50] VITALS: BP_SYST 150
[2018-08-10] MEDS: LORazepam 2 MG/ML VIAL IVP PRN ×2 (17:22→21:34)
[2018-08-10 20:00] VITALS: BP_SYST 143
[2018-08-11] MEDS: NACL 0.9% 1,000 ML IV SCH (01:50)
[2018-08-11] MEDS: LORazepam 2 MG/ML VIAL IVP PRN ×4 (02:11→15:42)
[2018-08-11 06:10] VITALS: BP_SYST 161
[2018-08-11] MEDS: INSULIN ASPART 100 UNITS/ML, 10 ML VIAL (NovoLOG) SUBCUT PRN ×2 (06:10→11:54)
[2018-08-11] MEDS: HYDROcodone/ACETAMIN 10-325 MG TAB PO PRN ×2 (06:15→14:32)
[2018-08-11 07:55] LABS: CALCIUM 7.4 mg/dL (8.4-11.0); CREATININE 1.3 mg/dL (0.55-1.30); POTASSIUM 3.6 mmol/L (3.5-5.1)
[2018-08-11] MEDS: INSULIN ASPART 100 UNITS/ML, 10 ML VIAL SUBCUT SCH ×2 (08:00→11:49)
[2018-08-11 08:14] VITALS: BP_SYST 141
[2018-08-11] MEDS: PANTOPRAZOLE SODIUM 40 MG/VIAL (PROTONIX) IVP SCH (09:57)
[2018-08-11 12:43] VITALS: BP_SYST 151
[2018-08-11] MEDS ORDERED: PRO40 PO (13:48)
[2018-08-11] MEDS ORDERED: ONDA4TAB5 PO (13:49)
[2018-08-11] MEDS ORDERED: INSU100V9 SQ (13:51)
[2018-08-11] MEDS ORDERED: INSU100V35 SQ (15:55)
[2018-08-11 15:58] VITALS: BP_SYST 151
[2018-08-11 16:29] VITALS: BP_SYST 156
== END 2018-08-11 16:30 | disposition home or self-care (01) | DRG 469 ==
LOC: SED 16:19 → SIC 18:16 → SMU 08-06 16:15
PROVIDERS: ADMIT Internal Medicine; ATTEND Internal Medicine
DX: N17.0 Acute kidney failure with tubular necrosis (principal); E10.10 Type 1 diabetes mellitus with ketoacidosis without coma; E10.21 Type 1 diabetes mellitus with diabetic nephropathy; K31.84 Gastroparesis; E10.43 Type 1 diabetes mellitus with diabetic autonomic (poly)neuropathy; F15.10 Other stimulant abuse, uncomplicated; E10.22 Type 1 diabetes mellitus with diabetic chronic kidney disease; E86.0 Dehydration; F32.9 Major depressive disorder, single episode, unspecified; I12.9 Hypertensive chronic kidney disease with stage 1 through stage 4 chronic kidney disease, or unspecified chronic kidney disease; G89.29 Other chronic pain; B19.20 Unspecified viral hepatitis C without hepatic coma; N18.9 Chronic kidney disease, unspecified; Z79.4 Long term (current) use of insulin; Z86.39 Personal history of other endocrine, nutritional and metabolic disease; Z91.14 Patient's other noncompliance with medication regimen; Z91.19 Patient's noncompliance with other medical treatment and regimen; Z88.8 Allergy status to other drugs, medicaments and biological substances
CPT/HCPCS: 36415; 36600; 80048; 80053; 80307; 81003; 82009-TC; 82803-TC; 82947-TC; 82962; 83036; 83605; 83735-TC; 84100-TC; 85007; 85025; 85027; 87040-TC; 87081; 93005; 94760; 96365; 96375; 99291; C9113; G0480; G0481; G0482; J0610; J1815; J1885; J2060; J2270; J2405; J2543; J2765; J3480; J7030

== ENCOUNTER 2018-09-05 18:36 | Inpatient (IN) | payer MEDICAID ==
[~2018-09-05] VITALS: Ht 188 cm; Wt 72.6 kg
[~2018-09-05 18:36] MED LIST changes: -INSU100I26 SQ; -INSU100V SQ; +INSU100V35 SQ; +INSU100V9 SQ; -METO-290 PO; +ONDA4TAB5 PO; +PRO40 PO
[2018-09-05 18:42] VITALS: BP_SYST 153
[2018-09-05 20:04] LABS: BASOPHILS # (AUTO) 0.1 K/uL (0.0-0.2); BASOPHILS % (AUTO) 1.3 % (0.0-2.0); EOSINOPHILS % (AUTO) 0.6 % (0.0-4.0); HEMATOCRIT 29.7 % (36-54); LYMPHOCYTES % (AUTO) 20.7 % (20.5-51.5); MEAN CORPUSCULAR HEMOGLOBIN 33 pg (27-31); MEAN CORPUSCULAR HGB CONC 34 % (32-36); MEAN CORPUSCULAR VOLUME 98 fL (79.0-98.0); MONOCYTES # (AUTO) 0.4 K/uL (0.0-1.0); MONOCYTES % (AUTO) 8.4 % (1.7-9.3); NEUTROPHILS # (AUTO) 3.3 K/uL (1.8-7.7); PLATELET COUNT (AUTO) 283 K/uL (130-430); RED BLOOD CELL COUNT(AUTO) 3.05 MIL/uL (4.2-6.2); RED CELL DISTRIBUTION WIDTH 15.9 % (9.0-15.0); WHITE BLOOD COUNT (AUTO) 4.8 K/uL (4.8-10.8)
[2018-09-05 20:15] LABS: ACETONE, SERUM SMALL (NEGATIVE)
[2018-09-05 20:18] LABS: ANION GAP 15 (5-15); CHLORIDE 89 mmol/L (98-107); CREATININE 1.18 mg/dL (0.55-1.30); POTASSIUM 4.1 mmol/L (3.5-5.1); SODIUM SERUM 123 mmol/L (136-145); UREA NITROGEN, BLOOD 17 mg/dL (8-21)
[2018-09-05 20:20] LABS: ALANINE AMINOTRANSFERASE 47 U/L (12-78); ALBUMIN 3.3 g/dL (3.4-4.8); ASPARTATE AMINOTRANSFERASE 33 U/L (10-37); LIPASE 46 U/L (73-393); TOTAL BILIRUBIN 1.3 mg/dL (0.0-1.0)
[2018-09-05 20:21] LABS: GLUCOSE 630 mg/dL (70-99)
[2018-09-05] MEDS ORDERED: NACL 0.9% 1,000 ML IV ONE ×3 (20:30→23:15)
[2018-09-05] MEDS ORDERED: LORazepam 2 MG/ML VIAL (FOR ER USE) IVP ONE ×2 (21:15→21:30)
[2018-09-05 21:43] LABS: BILIRUBIN,URINE NEGATIVE (NEGATIVE); BLOOD, URINE NEGATIVE (NEGATIVE); CLARITY/URINE CLEAR (CLEAR); COLOR,URINE YELLOW (YELLOW); GLUCOSE,URINE 3+ (NEGATIVE); KETONES,URINE 1+ (NEGATIVE); LEUKOCYTE ESTERASE ,URINE NEGATIVE (NEGATIVE); NITRITE, URINE NEGATIVE (NEGATIVE); PROTEIN URINE NEGATIVE (NEGATIVE); UROBILINOGEN,URINE 0.2 (0.2-1.0)
[2018-09-05 21:53] LABS: BARBITURATE, URINE NEGATIVE (NEG <=200); BENZODIAZEPINE, URINE NEGATIVE (NEG <=150); CANNABINOID, URINE POSITIVE (NEG <=50); COCAINE, URINE NEGATIVE (NEG <=150); METHAMPHETAMINES SCREEN,URINE POSITIVE (NEG <=500); OPIATE, URINE NEGATIVE (NEG <=100); PHENCYCLIDINE SCREEN,URINE NEGATIVE (NEG <=25); UR TRICYCLIC ANTIDEPRESSANTS NEGATIVE (NEG <=300); URINE AMPHETAMINE POSITIVE (NEG <=500); URINE METHADONE NEGATIVE (NEG <=200); URINE OXYCODONE SCREEN NEGATIVE (NEG <=100); URINE PROPOXYPHENE SCREEN NEGATIVE (NEG <=300)
[2018-09-05] MEDS ORDERED: INSULIN REGULAR, HUMAN 10 UNITS/0.1 ML INJ IVP ONE (22:00)
[2018-09-05] MEDS ORDERED: NACL 0.9% 1,000 ML IV SCH (23:53)
[2018-09-06] MEDS ORDERED: ONDANSETRON HCL 4 MG/2 ML VIAL IVP PRN
[2018-09-06] MEDS ORDERED: HYDROcodone/ACETAMIN 5-325 MG TAB (NORCO/ VICODIN) PO PRN
[2018-09-06] MEDS ORDERED: ACETAMINOPHEN 325 MG TABLET PO PRN
[2018-09-06] MEDS ORDERED: ALBUTEROL SULFATE 0.083% 2.5 MG/3 ML VIAL.NEB INH PRN
[2018-09-06 00:12] VITALS: BP_SYST 124
[2018-09-06 00:31] VITALS: BP_SYST 153
[2018-09-06] MEDS: NACL 0.9% 1,000 ML IV SCH ×4 (01:07→23:51)
[2018-09-06] MEDS: INSULIN ASPART 100 UNITS/ML, 10 ML VIAL (NovoLOG) SUBCUT PRN ×6 (02:16→22:09)
[2018-09-06 07:11] LABS: BASOPHILS # (AUTO) 0.1 K/uL (0.0-0.2); BASOPHILS % (AUTO) 1.7 % (0.0-2.0); EOSINOPHILS # (AUTO) 0.1 K/uL (0.0-0.4); EOSINOPHILS % (AUTO) 1.9 % (0.0-4.0); HEMATOCRIT 30.2 % (36-54); HEMOGLOBIN 10.1 g/dL (14.0-18.0); LYMPHOCYTES % (AUTO) 30.3 % (20.5-51.5); MEAN CORPUSCULAR HEMOGLOBIN 32 pg (27-31); MEAN CORPUSCULAR HGB CONC 34 % (32-36); MEAN CORPUSCULAR VOLUME 97 fL (79.0-98.0); MONOCYTES # (AUTO) 0.4 K/uL (0.0-1.0); MONOCYTES % (AUTO) 11.9 % (1.7-9.3); NEUTROPHILS # (AUTO) 1.6 K/uL (1.8-7.7); NEUTROPHILS % (AUTO) 54.2 % (40.0-70.0); PLATELET COUNT (AUTO) 276 K/uL (130-430); RED BLOOD CELL COUNT(AUTO) 3.12 MIL/uL (4.2-6.2); RED CELL DISTRIBUTION WIDTH 15.9 % (9.0-15.0); WHITE BLOOD COUNT (AUTO) 3.2 K/uL (4.8-10.8)
[2018-09-06 07:50] LABS: ALBUMIN 2.6 g/dL (3.4-4.8); CALCIUM 8.1 mg/dL (8.4-11.0); CREATININE 0.76 mg/dL (0.55-1.30); TOTAL BILIRUBIN 0.6 mg/dL (0.0-1.0)
[2018-09-06 08:00] VITALS: BP_SYST 111
[2018-09-06] MEDS: PANTOPRAZOLE SODIUM 40 MG TAB PO SCH (08:45)
[2018-09-06] MEDS ORDERED: POTASSIUM CHLORIDE 20 MEQ TAB.PRT.SR PO ONE (09:15)
[2018-09-06] MEDS: MORPHINE 4 MG/ML INJ. SYRINGE IVP PRN ×4 (09:49→23:49)
[2018-09-06 12:12] VITALS: BP_SYST 145
[2018-09-06 16:04] VITALS: BP_SYST 139
[2018-09-06 20:00] VITALS: BP_SYST 114
[2018-09-06] MEDS ORDERED: INSULIN GLARGINE 100 UNITS/ML 10 ML VIAL SUBCUT SCH (21:00)
[2018-09-06] MEDS: LORazepam 2 MG/ML VIAL IVP PRN (22:11)
[2018-09-07 02:03] VITALS: BP_SYST 121
[2018-09-07] MEDS: NACL 0.9% 1,000 ML IV SCH ×2 (03:21→12:28)
[2018-09-07] MEDS: INSULIN ASPART 100 UNITS/ML, 10 ML VIAL (NovoLOG) SUBCUT PRN ×2 (03:23→06:17)
[2018-09-07] MEDS: MORPHINE 4 MG/ML INJ. SYRINGE IVP PRN ×3 (04:01→12:28)
[2018-09-07] MEDS: LORazepam 2 MG/ML VIAL IVP PRN (06:25)
[2018-09-07 08:00] VITALS: BP_SYST 106
[2018-09-07] MEDS: PANTOPRAZOLE SODIUM 40 MG TAB PO SCH (08:15)
[2018-09-07 11:37] VITALS: BP_SYST 115
[2018-09-07 14:55] VITALS: BP_SYST 117
== END 2018-09-07 18:20 | disposition home or self-care (01) | DRG 812 ==
LOC: SED 18:36 → STU 23:07 → SMU 09-06 11:00
PROVIDERS: ADMIT Internal Medicine; ATTEND Internal Medicine
DX: T40.7X1A Poisoning by cannabis (derivatives), accidental (unintentional), initial encounter (principal); K31.84 Gastroparesis; E10.65 Type 1 diabetes mellitus with hyperglycemia; E10.43 Type 1 diabetes mellitus with diabetic autonomic (poly)neuropathy; E88.09 Other disorders of plasma-protein metabolism, not elsewhere classified; E87.1 Hypo-osmolality and hyponatremia; G89.29 Other chronic pain; R10.9 Unspecified abdominal pain; E86.0 Dehydration; F12.10 Cannabis abuse, uncomplicated; D64.9 Anemia, unspecified; E80.6 Other disorders of bilirubin metabolism; F15.10 Other stimulant abuse, uncomplicated; Z88.0 Allergy status to penicillin; Z79.899 Other long term (current) drug therapy; Z86.19 Personal history of other infectious and parasitic diseases; Z91.14 Patient's other noncompliance with medication regimen; Y92.89 Other specified places as the place of occurrence of the external cause
CPT/HCPCS: 36415; 71045; 80053; 80307; 81003; 82009-TC; 82962; 83605; 83690-TC; 84484; 85025; 87040-TC; 87081; 93005; 96361; 96374; 96375; 99285; G0378; J1815; J2060; J2270; J7030

== ENCOUNTER 2018-09-14 15:31 | Inpatient (IN) | payer MEDICAID ==
[~2018-09-14] VITALS: Ht 188 cm; Wt 67.6 kg
[2018-09-14 15:36] VITALS: BP_SYST 101
--- NOTE | 2018-09-14 15:48 | NUR ---
Patient to ER bed 4 to gown for evaluation. Side rails up. Report given to Jerel GENTILE.
--- NOTE | 2018-09-14 16:00 | NUR ---
Pt presents to ED c/o exacerbation of abd pain w/o nausea,vomiting. Pt h/o IDDM and gastroparesis.
[2018-09-14] MEDS ORDERED: NACL 0.9% 1,000 ML IV ONE ×2 (16:02→17:45)
--- NOTE | 2018-09-14 16:05 | NUR ---
ER at bedside examining patient.
[2018-09-14] MEDS ORDERED: ONDANSETRON HCL 4 MG/2 ML VIAL IVP ONE ×2 (16:15→17:45)
[2018-09-14] MEDS ORDERED: fentaNYL CITRATE/PF 100 MCG/2 ML AMP IVP ONE ×2 (16:15→18:00)
--- NOTE | 2018-09-14 16:30 | NUR ---
# 20 gauge angiocath placed to L wrist. Use of asceptic technique. Opsite placed over site. Blood return noted. Blood for lab drawn from site. Flushed with 10 cc of normal saline. No evidence of infiltration noted. Patient tolerated well.
[2018-09-14 16:38] LABS: ACETONE, SERUM SMALL (NEGATIVE)
--- NOTE | 2018-09-14 16:45 | NUR ---
Pt medicated tolerated well.
[2018-09-14 16:48] LABS: ANION GAP 9 (5-15); CHLORIDE 84 mmol/L (98-107); POTASSIUM 4.1 mmol/L (3.5-5.1); SODIUM SERUM 118 mmol/L (136-145)
[2018-09-14 16:49] LABS: ALANINE AMINOTRANSFERASE 41 U/L (12-78); ALBUMIN 3.1 g/dL (3.4-4.8); ASPARTATE AMINOTRANSFERASE 20 U/L (10-37); CALCIUM 8.3 mg/dL (8.4-11.0); CREATININE 1.23 mg/dL (0.55-1.30); GFR AFRICAN AMERICAN 91 mL/min (>90); GLUCOSE 727 mg/dL (70-99); TOTAL BILIRUBIN 0.8 mg/dL (0.0-1.0); UREA NITROGEN, BLOOD 15 mg/dL (8-21)
[2018-09-14 16:57] LABS: HEMATOCRIT 34.9 % (36-54); HEMOGLOBIN 12.2 g/dL (14.0-18.0); MEAN CORPUSCULAR HEMOGLOBIN 33 pg (27-31); MEAN CORPUSCULAR HGB CONC 35 % (32-36); MEAN CORPUSCULAR VOLUME 95 fL (79.0-98.0); PLATELET COUNT (AUTO) 287 K/uL (130-430); RED BLOOD CELL COUNT(AUTO) 3.67 MIL/uL (4.2-6.2); RED CELL DISTRIBUTION WIDTH 14.1 % (9.0-15.0); WHITE BLOOD COUNT (AUTO) 5.3 K/uL (4.8-10.8)
[2018-09-14 16:59] LABS: EOSINOPHILS % (AUTO) 0.3 % (0.0-4.0); LYMPHOCYTES % (AUTO) 22.9 % (20.5-51.5); MONOCYTES % (AUTO) 7.1 % (1.7-9.3); NEUTROPHILS % (AUTO) 68.7 % (40.0-70.0)
[2018-09-14 17:00] LABS: BASOPHILS # (AUTO) 0.1 K/uL (0.0-0.2); LYMPHOCYTES # (AUTO) 1.2 K/uL (1.0-5.5); MONOCYTES # (AUTO) 0.4 K/uL (0.0-1.0); NEUTROPHILS # (AUTO) 3.6 K/uL (1.8-7.7)
[2018-09-14] MEDS ORDERED: INSULIN REGULAR, HUMAN 10 UNITS/0.1 ML INJ IVP ONE (17:15)
[2018-09-14] MEDS ORDERED: fentaNYL 25 MCG/HR PATCH TD ONE (17:45)
--- NOTE | 2018-09-14 18:00 | NUR ---
Pt medicated for painand nausea.
[2018-09-14] MEDS ORDERED: NACL 0.9% 1,000 ML IV SCH (18:25)
--- NOTE | 2018-09-14 18:35 | NUR ---
Patient will be admitted to care of . Admitted to MED/SURG unit. Will go to room 130A. Belongings list completed. Summary report printed. Report will be given at bedside.
--- NOTE | 2018-09-14 19:12 | NUR ---
ADMISSION NOTE Received patient from ER via gurcapri, received report from RN. Patient admitted with diagnosis of Gastroparesis. Patient oriented to hospital routine, call light, toileting and safety-patient verbalized understanding.
[2018-09-14 19:17] VITALS: BP_SYST 125
--- NOTE | 2018-09-14 19:25 | NUR ---
Pt transport to Med/surg
[2018-09-14] MEDS ORDERED: cefTRIAXone 1 GM IVPB PREMIX 50 ML IV ONE (19:30)
[2018-09-14] MEDS ORDERED: ALBUTEROL SULFATE 0.083% 2.5 MG/3 ML VIAL.NEB INH PRN (19:30)
[2018-09-14] MEDS ORDERED: GLUCOSE 15 GM GEL (in 37.5 GM TUBE) PO PRN (19:45)
[2018-09-14] MEDS ORDERED: DEXTROSE 50%-WATER 50 ML DISP.SYRIN IVP PRN (19:45)
[2018-09-14] MEDS ORDERED: D5W 1,000 ML IV PRN (19:45)
[2018-09-14] MEDS: NACL 0.9% 1,000 ML IV SCH (20:02)
[2018-09-14] MEDS: MORPHINE 4 MG/ML INJ. SYRINGE IVP PRN (20:03)
[2018-09-14] MEDS: ONDANSETRON HCL 4 MG/2 ML VIAL IVP PRN (20:03)
--- NOTE | 2018-09-14 20:03 | NUR ---
Pain/nausea: Patient complaining of moderate abdominal pain and nausea. PRN Morphine and PRN Zofran indicated. Administered medications per MD order, patient tolerated well. Call light with patient. Will continue monitoring.
--- NOTE | 2018-09-14 20:21 | NUR ---
Levemir: Administered scheduled Levemir 50 units subcutaneously. Prior to administration, blood sugar was 465. Indications and side effects explained, patient verbalized understanding. Call light with patient. Will monitor for signs, symptoms of hypoglycemia.
[2018-09-14] MEDS: LORazepam 2 MG/ML VIAL IVP PRN (20:48)
--- NOTE | 2018-09-14 20:48 | NUR ---
Anxiety: Patient states he feels very anxious at this time. PRN Ativan indicated. Administered medication per MD order, patient tolerated well. Call light with patient. Will continue monitoring.
[2018-09-14 21:17] VITALS: BP_SYST 125
--- NOTE | 2018-09-14 22:33 | NUR ---
Rounds: Patient is awake, no acute distress noted. IV fluids infusing to patient's left wrist IV, site patent and benign. At this time, patient is asking for Jello and pudding. Explained to patient his current diet order and non-pharmacological blood glucose management. Offered patient chicken broth instead, patient accepted. Call light with patient. Will continue to monitor.
[2018-09-14 23:33] VITALS: BP_SYST 110
[2018-09-14] MEDS: INSULIN ASPART 100 UNITS/ML, 10 ML VIAL (NovoLOG) SUBCUT PRN (23:34)
[2018-09-15] MEDS: ONDANSETRON HCL 4 MG/2 ML VIAL IVP PRN ×6 (00:34→23:02)
--- NOTE | 2018-09-15 00:34 | NUR ---
Nausea: Patient complaining of nausea. PRN Zofran indicated. Administered medication per MD order, patient tolerated well. Call light with patient. Will continue monitoring.
[2018-09-15] MEDS: LORazepam 2 MG/ML VIAL IVP PRN ×6 (00:50→23:02)
--- NOTE | 2018-09-15 00:50 | NUR ---
Anxiety: Patient stated he was feeling anxious. PRN Ativan indicated. Administered medication intravenously per MD order, patient tolerated well. Call light with patient. Will continue monitoring.
[2018-09-15] MEDS: NACL 0.9% 1,000 ML IV SCH ×3 (02:08→17:19)
[2018-09-15] MEDS: MORPHINE 4 MG/ML INJ. SYRINGE IVP PRN ×5 (02:11→21:11)
--- NOTE | 2018-09-15 02:11 | NUR ---
Pain: Patient complaining of moderate abdominal pain. PRN Morphine indicated. Administered medication per MD order, patient tolerated well. Call light with patient. Will continue monitoring.
[2018-09-15] MEDS: INSULIN ASPART 100 UNITS/ML, 10 ML VIAL (NovoLOG) SUBCUT PRN ×5 (02:23→21:28)
--- NOTE | 2018-09-15 02:23 | NUR ---
Blood glucose: Patient's blood glucose at this time is 347. Administered 8 units of Novolog per MD ordered sliding scale. Call light with patient. Will monitor for signs/symptoms of hypoglycemia.
--- NOTE | 2018-09-15 04:52 | NUR ---
Anxiety/nausea: Patient states he is feeling nauseous and anxious. PRN Zofran and PRN Ativan indicated. Administered medications per MD order. Call light is with patient. Will continue to monitor.
--- NOTE | 2018-09-15 06:55 | NUR ---
Closing note: Patient resting in bed, no acute distress noted. Respirations even and unlabored on room air. IV fluids infusing well to left wrist IV site. Patient recently medicated for pain, no complaints of pain at this time. All needs met. Will endorse care to dayshift RN.
[2018-09-15 07:14] LABS: BASOPHILS % (AUTO) 0.7 % (0.0-2.0); EOSINOPHILS # (AUTO) 0.1 K/uL (0.0-0.4); EOSINOPHILS % (AUTO) 1.4 % (0.0-4.0); HEMATOCRIT 30.2 % (36-54); HEMOGLOBIN 10.2 g/dL (14.0-18.0); LYMPHOCYTES # (AUTO) 2.2 K/uL (1.0-5.5); MEAN CORPUSCULAR HEMOGLOBIN 32 pg (27-31); MEAN CORPUSCULAR HGB CONC 34 % (32-36); MEAN CORPUSCULAR VOLUME 96 fL (79.0-98.0); MONOCYTES # (AUTO) 0.5 K/uL (0.0-1.0); MONOCYTES % (AUTO) 8.3 % (1.7-9.3); NEUTROPHILS % (AUTO) 51.6 % (40.0-70.0); PLATELET COUNT (AUTO) 260 K/uL (130-430); RED BLOOD CELL COUNT(AUTO) 3.15 MIL/uL (4.2-6.2); RED CELL DISTRIBUTION WIDTH 14.1 % (9.0-15.0); WHITE BLOOD COUNT (AUTO) 5.8 K/uL (4.8-10.8)
[2018-09-15 07:40] VITALS: BP_SYST 110
[2018-09-15 07:44] LABS: POTASSIUM 3.6 mmol/L (3.5-5.1)
[2018-09-15 07:45] LABS: ALBUMIN 2.4 g/dL (3.4-4.8); CREATININE 0.72 mg/dL (0.55-1.30); TOTAL BILIRUBIN 0.3 mg/dL (0.0-1.0)
--- NOTE | 2018-09-15 08:02 | NUR ---
OPENING NOTES, RECEIVED PT IN BED, PT IS AOX4, C/O ABD PAIN. NO SOB, NO RESP DISTRESS. L. WRIST IV ACCESS, INTACT AND PATENT, DRESSING IS CLEAN AND DRY. IV FLUIDS INFUSING. SAFETY PRECAUTION IN PLACE. BED LOCKED, IN LOW POSITION. CALL LIGHT IN REACH, BED ALARM ON. ENCOURAGED PT TO CALL FOR ASSIST AND PAIN MEDS. WILL CONT OT MONITOR.
[2018-09-15] MEDS: PANTOPRAZOLE SODIUM 40 MG TAB PO SCH (08:50)
--- NOTE | 2018-09-15 10:50 | NUR ---
pt in bed, eyes closed, appear sleeping, appears comfortable. will cont to monitor.
--- NOTE | 2018-09-15 11:10 | NUR ---
BLOOD SUGAR 276, GIVEN 6 UNITS NOVOLOG. NO C/O PAIN THIS TIME.
[2018-09-15 12:41] VITALS: BP_SYST 123
[2018-09-15 14:42] LABS: BARBITURATE, URINE NEGATIVE (NEG <=200); BENZODIAZEPINE, URINE POSITIVE (NEG <=150); CANNABINOID, URINE POSITIVE (NEG <=50); COCAINE, URINE NEGATIVE (NEG <=150); METHAMPHETAMINES SCREEN,URINE NEGATIVE (NEG <=500); OPIATE, URINE POSITIVE (NEG <=100); PHENCYCLIDINE SCREEN,URINE NEGATIVE (NEG <=25); URINE AMPHETAMINE NEGATIVE (NEG <=500); URINE METHADONE NEGATIVE (NEG <=200); URINE OXYCODONE SCREEN NEGATIVE (NEG <=100); URINE PROPOXYPHENE SCREEN NEGATIVE (NEG <=300)
[2018-09-15 14:43] LABS: UR TRICYCLIC ANTIDEPRESSANTS NEGATIVE (NEG <=300)
--- NOTE | 2018-09-15 14:55 | NUR ---
pt given ativan and zofran, blood sugar checked with was 382, covered with novolog. pt in bed, no c/o pain. call light in reach. will cont to monitor. refused bed alarm.
[2018-09-15 17:15] VITALS: BP_SYST 125
--- NOTE | 2018-09-15 18:20 | NUR ---
PAGED DR LINDQUIST TO CHECK IF MD WANTS TO CHANGE DIET TO SOFT. PER PT TOLD HIM THAT HE WILL CHANGE DIET ORDER. PT IS ADAMANT THAT WE CALL .
--- NOTE | 2018-09-15 18:36 | NUR ---
CLOSING NOTES, PT HAS BEEN STABLE. GIVEN PAIN MEDS , ANTI EMETICS AND ANXIOLYTIC MEDS THIS SHIFT. DIET ADVANCE PER MD TO SOFT DIET. TO ADVANCE TOLERATED. WILL ENDORSE TO NIGHT RN.
[2018-09-15 20:00] VITALS: BP_SYST 124
--- NOTE | 2018-09-15 20:00 | NUR ---
Initial Notes Received patient resting in bed, awake, alert, oriented. Patient denies any acute distress or pain at this time. Vital signs stable. Breathing is even and unlabored. IV site patent/clean/dry. Needs addressed. Educated patient regarding use of call light for assistance and fall precautions, patient verbalized understanding. Call light in hand, fall precautions in place. Will continue to monitor.
--- NOTE | 2018-09-15 22:00 | NUR ---
Nursing Notes Patient resting in bed, awake. Patient denies any acute distress or pain at this time. Breathing is even and unlabored. IV site patent/clean/dry. Patient had insisted we check his BS early and to give him snacks. Snacks given to patient per request after blood sugar was checked and ordered insulins given. Needs addressed. Call light in hand, fall precautions in place.
[2018-09-16] VITALS: BP_SYST 117
--- NOTE | 2018-09-16 | NUR ---
Nursing Notes Patient resting in bed with eyes closed, easily aroused upon nurse entering room. Patient denies any acute distress or pain at this time. Breathing is even and unlabored. IV site patent/clean/dry. Snacks given to patient per request. Educated patient regarding his diabetes and elevated BS, patient continue to insist on receiving snacks. Needs addressed. Call light in hand, fall precautions in place.
[2018-09-16] MEDS: NACL 0.9% 1,000 ML IV SCH ×3 (00:58→18:33)
[2018-09-16] MEDS: MORPHINE 4 MG/ML INJ. SYRINGE IVP PRN ×6 (00:59→23:30)
--- NOTE | 2018-09-16 02:00 | NUR ---
Nursing Notes Patient resting in bed with eyes closed. No acute distress noted, breathing is even and unlabored. IV site patent/clean/dry. Fall precautions in place, will continue to monitor.
[2018-09-16] MEDS: ONDANSETRON HCL 4 MG/2 ML VIAL IVP PRN ×5 (03:04→21:33)
[2018-09-16] MEDS: LORazepam 2 MG/ML VIAL IVP PRN ×5 (03:05→21:30)
[2018-09-16] MEDS: INSULIN ASPART 100 UNITS/ML, 10 ML VIAL (NovoLOG) SUBCUT PRN ×5 (03:10→23:34)
[2018-09-16 04:00] VITALS: BP_SYST 115
--- NOTE | 2018-09-16 04:00 | NUR ---
Nursing Notes Patient resting in bed, with eyes closed. Breathing is even and unlabored. IV site patent/clean/dry. Will continue to monitor.
--- NOTE | 2018-09-16 07:25 | NUR ---
Nursing Notes Patient's morning fingerstick blood sugar 51. Juice and snacks given and BS rechecked, resulted 51. D50 IVP given per MD orders, BS rechecked resulted 112. Notified Dr. Hull, covering for Richie, orders received for BMP, and to hold Levemir. Patient asymptomatic.
[2018-09-16 08:04] VITALS: BP_SYST 102
--- NOTE | 2018-09-16 08:10 | NUR ---
Opening note patient received resting in bed, patient is awake, alert, and oriented, breathing is even and unlabored, pain is controlled at this time, no acute distress is noted, assessment completed, educated patient on plan of care and call light system, will continue to monitor, safety precautions in place, call light within reach.
[2018-09-16 08:15] LABS: CALCIUM 8.2 mg/dL (8.4-11.0); CREATININE 0.76 mg/dL (0.55-1.30); POTASSIUM 4.2 mmol/L (3.5-5.1)
[2018-09-16] MEDS: PANTOPRAZOLE SODIUM 40 MG TAB PO SCH (08:41)
--- NOTE | 2018-09-16 10:35 | NUR ---
NOTES PATIENT IS RESTING IN BED WITH EYES CLOSED, IVF INFUSING WELL WITH NO SIGNS OF INFILTRATION, BREATHING IS EVEN AND UNLABORED, PAIN IS CONTROLLED AT THIS TIME, NO ACUTE DISTRESS IS NOTED, WILL CONTINUE TO MONITOR, SAFETY PRECAUTIONS IN PLACE, CALL LIGHT WITHIN REACH.
--- NOTE | 2018-09-16 11:00 | NUR ---
BLOOD SUGAR IS 368 AT THIS TIME, INSULIN GIVEN PER SLIDING SCALE.
[2018-09-16 12:00] VITALS: BP_SYST 108
--- NOTE | 2018-09-16 13:10 | NUR ---
NOTES PATIENT IS RESTING IN BED, PATIENT DENIES ANY ACUTE DISTRESS, PAIN IS CONTROLLED AT THIS TIME, BREATHING IS EVEN AND UNLABORED, IVF INFUSING WELL WITH NO SIGNS OF INFILTRATION, WILL CONTINUE TO MONITOR, SAFETY PRECAUTIONS IN PLACE, CALL LIGHT WITHIN REACH.
--- NOTE | 2018-09-16 15:30 | NUR ---
BLOOD SUGAR IS 246 AT THIS TIME, INSULIN GIVEN PER SLIDING SCALE, WILL CONTINUE TO MONITOR.
[2018-09-16 16:00] VITALS: BP_SYST 115
--- NOTE | 2018-09-16 17:29 | NUR ---
NOTES PATIENT IS RESTING IN BED, IVF INFUSING WELL WITH NO SIGNS OF INFILTRATION, BREATHING IS EVEN AND UNLABORED, PATIENT DENIES ANY ACUTE DISTRESS, PAIN IS CONTROLLED AT THIS TIME, WILL CONTINUE TO MONITOR, SAFETY PRECAUTIONS IN PLACE, CALL LIGHT WITHIN REACH.
--- NOTE | 2018-09-16 18:39 | NUR ---
CLOSING NOTE PATIENT IS RESTING IN BED, BLOOD SUGAR WAS 252 AT THIS TIME, INSULIN GIVEN PER SLIDING SCALE, IVF INFUSING WELL WITH NO SIGNS OF INFILTRATION, BREATHING IS EVEN AND UNLABORED, PATIENT IS ALERT AND ORIENTED, NO SIGNS OF PAIN OR ACUTE DISTRESS IS NOTED AT THIS TIME, ALL NEEDS WERE MET THROUGHOUT SHIFT, WILL ENDORSE REPORT TO ONCOMING NURSE, SAFETY PRECAUTIONS IN PLACE, CALL LIGHT WITHIN REACH.
[2018-09-16 19:20] VITALS: BP_SYST 121
--- NOTE | 2018-09-16 19:22 | NUR ---
Initial Assessment Received patient in bed awake alert oriented x4. No s/s of any distress noted. IV noted to L wrist g 20 no infiltrate and with good blood return. All extremities are strong, independent. Kwasi cont to monitor.
--- NOTE | 2018-09-16 21:20 | NUR ---
Rounds Provided snack as requested by patient. No distress at this time, will cont to monitor.
--- NOTE | 2018-09-16 23:20 | NUR ---
Rounds Patient requested for snack for a third time I inform the patient that his blood sugar is 301. Explained to patient that risk with over indulging with sweet food with his diabetes. Patient was not happy being told " I dont want you to tell me all these". Patient went to rest and close his eyes., will cont to monitor.
--- NOTE | 2018-09-16 23:40 | NUR ---
Called Security Patient step out from the room and was asking for Ativan but I told him him that it was just given to him and not yet due. Patient was not happy and while he is about to enter his room he had a misstep and appear to be falling, this nurse attempted to help the patient. The patient regain his balance and yelled" Dont treat me like a f kid", "I am not falling" . I explained to the patient I was trying to help but he get more angry and loud. Security was called and patient went to his bed. Will cont to monitor patient.
[2018-09-17 01:39] VITALS: BP_SYST 111
--- NOTE | 2018-09-17 01:40 | NUR ---
Rounds Snacks was provided as requested by patient. Will cont to monitor.
--- NOTE | 2018-09-17 03:20 | NUR ---
Rounds Patient is resting at this time with eyes close. No s/s of any distress noted. Call light in reach, will cont to monitor.
[2018-09-17] MEDS: ONDANSETRON HCL 4 MG/2 ML VIAL IVP PRN ×3 (03:32→13:58)
[2018-09-17] MEDS: LORazepam 2 MG/ML VIAL IVP PRN ×3 (03:33→14:00)
[2018-09-17] MEDS: INSULIN ASPART 100 UNITS/ML, 10 ML VIAL (NovoLOG) SUBCUT PRN ×4 (03:40→17:40)
[2018-09-17] MEDS: MORPHINE 4 MG/ML INJ. SYRINGE IVP PRN (04:40)
[2018-09-17] MEDS: NACL 0.9% 1,000 ML IV SCH (04:43)
--- NOTE | 2018-09-17 06:56 | NUR ---
Final notes Patient is resting at tis time. No c/o pain and no s/s of any distress noted. All needs met and anticipated by noc nurse. Will endorse to incoming nurse.
--- NOTE | 2018-09-17 07:40 | NUR ---
RECEIVED REPORT AT THE BEDSIDE. WITH NITE NURSE. NO SOB NOR PAIN NOTED. VERY SLEEPY. VITALS SIGNS STABLE. LUNGS BILATERALLY CLEAR. ABDOMEN SOFT AND NON DISTENDED. CALL LIGHTS WITHIN REACH. INSTRUCTED TO CALL FOR ASSISTANCE.
--- NOTE | 2018-09-17 08:00 | NUR ---
EATING HIS BREAKFAST. WATCHING TV.
[2018-09-17 08:54] VITALS: BP_SYST 108
[2018-09-17] MEDS: PANTOPRAZOLE SODIUM 40 MG TAB PO SCH (09:04)
--- NOTE | 2018-09-17 09:09 | NUR ---
due neducattelma price, patient request to have ativan 1 mg iv and zofran. verbalized feels nauseated. made comfortable. assistst on adls.
--- NOTE | 2018-09-17 10:00 | NUR ---
ASLEEP AT THIS TIME. NO SOB NOTED
[2018-09-17 12:27] VITALS: BP_SYST 109
--- NOTE | 2018-09-17 14:12 | NUR ---
LATEST BS 600MG/DL. NOVOLOG SUBCUTANEOUSLY WITH [address] LINDQUIST CALLED NO OTHER ORDER MADE AND PATIENT CAN GO HOME ORDERED.
--- NOTE | 2018-09-17 14:14 | NUR ---
MD KENRICK BRAVO CALLED AT SPOKE WITH DR.JANDIAL LEE RAJNISH VISITOR SERVICES INFORMATION ASSISTANT.
--- NOTE | 2018-09-17 14:55 | NUR ---
LATEST BS IS 568MG/DL. NO COVERAGE GIVEN AT THIS TIME.
--- NOTE | 2018-09-17 15:17 | NUR ---
VERBALIZED DOES NOT WANT TO GO HOME TODAY. BECAUSE OF THE RIDE AVAILABILITY.
[2018-09-17 15:21] VITALS: BP_SYST 110
--- NOTE | 2018-09-17 15:39 | NUR ---
MD CHOUDHARY CALLED [facility] AT SPOKE WITH DR.JANDIAL LEE RAJNISH DOWELER.
--- NOTE | 2018-09-17 15:40 | NUR ---
called Dr Hull regarding the patient status. awaiting to call back
--- NOTE | 2018-09-17 16:00 | NUR ---
dr darden called and said to have director case on the case. called director case, gone for the day. informed Fran Charge nurse
--- NOTE | 2018-09-17 16:23 | NUR ---
MD KENRICK BRAVO CALLED AT SPOKE WITH DR.JANDIAL NUNEZ RAJNISH SOLE ASSESSOR.
[2018-09-17 16:50] VITALS: BP_SYST 112
--- NOTE | 2018-09-17 17:50 | NUR ---
MD CHOUDHARY CALLED [facility] AT SPOKE WITH DR.KANGARLU LARRY CELLARS SUPERVISOR.
--- NOTE | 2018-09-17 17:52 | NUR ---
awaiting for dr darden to call back
--- NOTE | 2018-09-17 18:12 | NUR ---
dr lee called and follow up director of casework services to arranged for a ride to go home, but no correctional captain director of casework services, informed Fran charge nurse.
--- NOTE | 2018-09-17 18:46 | NUR ---
WON SUBSTITUTE TEACHER CALLED REGARDING PATIENTS STATUS FOR DISCHARGE
--- NOTE | 2018-09-17 19:05 | NUR ---
Initial Assessment Received patient in the hallway walking. No s/s of any distress noted. All v/s are wnl. Discuss plan of care with patient and verbalized understanding.Will Monitor.
--- NOTE | 2018-09-17 19:32 | NUR ---
endorsed to incoming yari Bernardo RN. possible discharge home tonite, if savanna case monitor finds a person or ride to go home.
--- NOTE | 2018-09-17 19:41 | NUR ---
PAGED SOFTWARE TOOLS DEVELOPER PAGED NURSING ASSISTANTS TEACHER SOFTWARE TOOLS DEVELOPER @ [phone].
--- NOTE | 2018-09-17 20:35 | NUR ---
Discharge patient Discharge patient to home. sales superintendent by his father. Patient is in no distress during discharge. Remove IV and belongings was with patient. Discharge instruction was discussed,signed and handed to patient.
== END 2018-09-17 20:35 | disposition home or self-care (01) | DRG 48 ==
LOC: SED 15:31 → SMU 18:25
PROVIDERS: ADMIT Internal Medicine; ATTEND Internal Medicine
DX: E10.43 Type 1 diabetes mellitus with diabetic autonomic (poly)neuropathy (principal); E10.65 Type 1 diabetes mellitus with hyperglycemia; E87.1 Hypo-osmolality and hyponatremia; K31.84 Gastroparesis; J44.9 Chronic obstructive pulmonary disease, unspecified; G89.29 Other chronic pain; F15.10 Other stimulant abuse, uncomplicated; B19.20 Unspecified viral hepatitis C without hepatic coma; Z88.8 Allergy status to other drugs, medicaments and biological substances; Z79.899 Other long term (current) drug therapy; Z79.4 Long term (current) use of insulin; Z91.14 Patient's other noncompliance with medication regimen
CPT/HCPCS: 36415; 80048; 80053; 80307; 82009-TC; 82962; 83036; 85025; 87081; 96361; 96374; 96375; 96376; 99285; J0696; J1815; J2060; J2270; J2405; J3010; J7030

== ENCOUNTER 2018-09-25 16:15 | Inpatient (IN) | payer MEDICAID ==
[~2018-09-25] VITALS: Ht 188 cm; Wt 73.5 kg
[2018-09-25] MEDS ORDERED: NACL 0.9% 1,000 ML IV ONE (16:19)
[2018-09-25 16:21] VITALS: BP_SYST 112
--- NOTE | 2018-09-25 16:24 | NUR ---
Patient to ER bed 4 to gown for evaluation. Side rails up. Report given to Vicky GENTILE.
[2018-09-25] MEDS ORDERED: ONDANSETRON HCL 4 MG/2 ML VIAL IVP ONE (16:30)
[2018-09-25] MEDS ORDERED: MORPHINE 4 MG/ML INJ. SYRINGE IVP ONE ×2 (16:30→17:45)
--- NOTE | 2018-09-25 16:31 | NUR ---
patients dad dropped patient off from home with full mentation. patient states he has done meth and now feels sick. patient has N/V however, patient has not vomited here. patient states he is going to [facility] on Thursday. patient last used IV meth yesterday. no other information provided during interview. patient requests morphine, zofran as soon as possible. no other injury or complaint at this time.
--- NOTE | 2018-09-25 16:31 | NUR ---
ER at bedside examining patient.
[2018-09-25] MEDS ORDERED: INSULIN REGULAR, HUMAN 10 UNITS/0.1 ML INJ IVP ONE ×2 (17:00→20:15)
[2018-09-25 17:04] LABS: BASOPHILS % (AUTO) 0.5 % (0.0-2.0); EOSINOPHILS % (AUTO) 0.5 % (0.0-4.0); HEMATOCRIT 37.6 % (36-54); LYMPHOCYTES % (AUTO) 35.9 % (20.5-51.5); MEAN CORPUSCULAR HEMOGLOBIN 32 pg (27-31); MEAN CORPUSCULAR HGB CONC 35 % (32-36); MEAN CORPUSCULAR VOLUME 93 fL (79.0-98.0); MONOCYTES # (AUTO) 0.3 K/uL (0.0-1.0); MONOCYTES % (AUTO) 5.4 % (1.7-9.3); NEUTROPHILS # (AUTO) 3.3 K/uL (1.8-7.7); NEUTROPHILS % (AUTO) 57.7 % (40.0-70.0); PLATELET COUNT (AUTO) 311 K/uL (130-430); RED BLOOD CELL COUNT(AUTO) 4.05 MIL/uL (4.2-6.2); RED CELL DISTRIBUTION WIDTH 12.7 % (9.0-15.0); WHITE BLOOD COUNT (AUTO) 5.6 K/uL (4.8-10.8)
[2018-09-25] MEDS ORDERED: INSULIN REGULAR, HUMAN 10 UNITS/0.1 ML INJ ONE (17:15)
[2018-09-25 17:19] LABS: CALCIUM 8.7 mg/dL (8.4-11.0); CREATININE 1.08 mg/dL (0.55-1.30); POTASSIUM 4.4 mmol/L (3.5-5.1)
[2018-09-25 17:21] LABS: INR 0.9 (0.80-1.20); PROTHROMBIN TIME 9.6 SECS (9.5-12.5)
--- NOTE | 2018-09-25 17:22 | NUR ---
patient is requesting more morphine and zofran by name.
[2018-09-25 17:25] LABS: TOTAL BILIRUBIN 1.4 mg/dL (0.0-1.0)
[2018-09-25 17:26] LABS: ALBUMIN 3.3 g/dL (3.4-4.8)
--- NOTE | 2018-09-25 19:06 | NUR ---
report given to
--- NOTE | 2018-09-25 19:10 | NUR ---
Pt resting with eyes closed, NAD, VSS.
--- NOTE | 2018-09-25 20:10 | NUR ---
Finger stick bs 367. Dr. Palafox notified. Pt to receive Insulin.
--- NOTE | 2018-09-25 20:17 | NUR ---
Pt c/o 10/[address] nausea[address] Dr[address] Palafox notified.
[2018-09-25] MEDS ORDERED: KETOROLAC TROMETHAMINE 30 MG VIAL IVP ONE (20:30)
[2018-09-25] MEDS ORDERED: METOCLOPRAMIDE HCL 10 MG/2 ML VIAL IVP ONE (20:30)
--- NOTE | 2018-09-25 20:55 | NUR ---
Pt refused Toradol. "It doesn't do anything for me." "The only thing that works is Morphine." Dr. Palafox notified.
[2018-09-25] MEDS ORDERED: HALOPERIDOL LACTATE 5 MG/ML VIAL IVP ONE (21:15)
[2018-09-25] MEDS ORDERED: ONDANSETRON HCL 4 MG/2 ML VIAL IVP PRN (22:00)
[2018-09-25] MEDS ORDERED: ACETAMINOPHEN 325 MG TABLET PO PRN (22:00)
[2018-09-25] MEDS ORDERED: MORPHINE 4 MG/ML INJ. SYRINGE IVP PRN (22:00)
--- NOTE | 2018-09-25 22:01 | NUR ---
Pt to CT via stretcher.
--- NOTE | 2018-09-25 22:08 | NUR ---
Pt returns from CT. VSS, no needs verbalized at this time.
--- NOTE | 2018-09-25 22:10 | NUR ---
BS 354. Pt to be given insulin per s.s. on Tele unit from admit orders.
--- NOTE | 2018-09-25 22:20 | NUR ---
Patient will be admitted to care of Dr. Lloyd. Admitted to Tele unit. Will go to room 101B. Belongings list completed. Summary report printed. Report will be given at bedside.
--- NOTE | 2018-09-25 22:30 | NUR ---
ADMISSION NOTE Received patient from ER via elle, received report from Tucker GENTILE. Patient admitted with diagnosis of Intractable Vomiting and Hyponatremia. Patient oriented to hospital routine, call light, toileting and safety-patient verbalized understanding.
[2018-09-25 22:34] VITALS: BP_SYST 132
--- NOTE | 2018-09-25 22:45 | NUR ---
OPENING NOTE/REFUSE BED ALARM Bedside report received from Angel GRIER. Patient received AOx4, complaining of 8/10 abdominal pain. Breathing is even and unlabored. IV site patent, no signs of infiltration or infection. Patient made aware that PRN medication to be administered. Bed alarm is off per patient's refusal, despite being educated on its purpose and benefits, will continue to encourage throughout shift. Call light with patient. Bed is locked and at lowest position.
[2018-09-25] MEDS: NACL 0.9% 1,000 ML IV SCH (22:47)
[2018-09-25] MEDS: MORPHINE 4 MG/ML INJ. SYRINGE IVP PRN (22:53)
[2018-09-25] MEDS: INSULIN REGULAR, HUMAN 100 UNITS/ML, 10 ML VIAL (novoLIN R) SUBCUT PRN (22:56)
[2018-09-25] MEDS ORDERED: METOCLOPRAMIDE HCL 10 MG/2 ML VIAL IVP SCH (23:00)
[2018-09-26] VITALS: BP_SYST 128
--- NOTE | 2018-09-26 | NUR ---
ROUNDS/VOID Patient voiding into urinal at this time. UA sample collected at this time as well. Patient denies any pain or discomfort, no s/s of acute distress noted. Breathing is even and unlabored. IVF infusing well. Call light with patient. Will continue to monitor.
[2018-09-26] MEDS: METOCLOPRAMIDE HCL 10 MG/2 ML VIAL IVP SCH ×5 (00:32→23:26)
[2018-09-26 01:34] LABS: BILIRUBIN,URINE NEGATIVE (NEGATIVE); BLOOD, URINE NEGATIVE (NEGATIVE); CLARITY/URINE CLEAR (CLEAR); COLOR,URINE YELLOW (YELLOW); GLUCOSE,URINE 3+ (NEGATIVE); KETONES,URINE 2+ (NEGATIVE); LEUKOCYTE ESTERASE ,URINE NEGATIVE (NEGATIVE); NITRITE, URINE NEGATIVE (NEGATIVE); PROTEIN URINE NEGATIVE (NEGATIVE); UROBILINOGEN,URINE 0.2 (0.2-1.0)
[2018-09-26 01:40] LABS: BACTERIA,URINE FEW /HPF (None Seen); RBC,URINE 0-3 /HPF (0-3); WBC,URINE 0-3 /HPF (0-3)
[2018-09-26 01:48] LABS: URINE AMPHETAMINE POSITIVE (NEG <=500)
[2018-09-26 01:49] LABS: BARBITURATE, URINE NEGATIVE (NEG <=200); BENZODIAZEPINE, URINE NEGATIVE (NEG <=150); CANNABINOID, URINE NEGATIVE (NEG <=50); COCAINE, URINE NEGATIVE (NEG <=150); METHAMPHETAMINES SCREEN,URINE POSITIVE (NEG <=500); OPIATE, URINE POSITIVE (NEG <=100); PHENCYCLIDINE SCREEN,URINE NEGATIVE (NEG <=25); UR TRICYCLIC ANTIDEPRESSANTS NEGATIVE (NEG <=300); URINE METHADONE NEGATIVE (NEG <=200); URINE OXYCODONE SCREEN NEGATIVE (NEG <=100); URINE PROPOXYPHENE SCREEN NEGATIVE (NEG <=300)
--- NOTE | 2018-09-26 02:00 | NUR ---
ROUNDS Patient in bed sleeping comfortably. No signs of discomfort noted. Chest rise and fall even bilaterally. IVF infusing well. Call light with patient. Will continue to monitor.
[2018-09-26] MEDS: NACL 0.9% 1,000 ML IV SCH ×3 (03:43→23:27)
[2018-09-26] MEDS: INSULIN REGULAR, HUMAN 100 UNITS/ML, 10 ML VIAL (novoLIN R) SUBCUT PRN ×6 (03:45→23:29)
[2018-09-26] MEDS: MORPHINE 4 MG/ML INJ. SYRINGE IVP PRN ×5 (03:47→20:12)
--- NOTE | 2018-09-26 04:00 | NUR ---
VOID Patient voided in urinal, 950 ml of clear yellow urine noted. No signs of discomfort, breathing even and unlabored. IVF infusing well. Call light with patient. Will continue to monitor.
--- NOTE | 2018-09-26 06:44 | NUR ---
CLOSING NOTES Patient in bed sleeping at this time. No s/s of acute distress noted. Breathing is even and unlabored. IVF infusing well, IV site is patent, no signs of infiltration or infection noted. Skin warm and dry to touch, last BS checked was 329. All needs met throughout shift. Fall and safety precautions maintained throughout shift. Will continue to monitor until patient care is endorsed to dayshift nurse.
[2018-09-26 07:01] LABS: BASOPHILS % (AUTO) 0.8 % (0.0-2.0); EOSINOPHILS # (AUTO) 0.1 K/uL (0.0-0.4); EOSINOPHILS % (AUTO) 1.6 % (0.0-4.0); HEMATOCRIT 31.3 % (36-54); HEMOGLOBIN 10.5 g/dL (14.0-18.0); LYMPHOCYTES # (AUTO) 1.9 K/uL (1.0-5.5); LYMPHOCYTES % (AUTO) 49.3 % (20.5-51.5); MEAN CORPUSCULAR HEMOGLOBIN 32 pg (27-31); MEAN CORPUSCULAR HGB CONC 34 % (32-36); MEAN CORPUSCULAR VOLUME 94 fL (79.0-98.0); MONOCYTES # (AUTO) 0.3 K/uL (0.0-1.0); MONOCYTES % (AUTO) 6.7 % (1.7-9.3); NEUTROPHILS # (AUTO) 1.6 K/uL (1.8-7.7); NEUTROPHILS % (AUTO) 41.6 % (40.0-70.0); PLATELET COUNT (AUTO) 235 K/uL (130-430); RED BLOOD CELL COUNT(AUTO) 3.34 MIL/uL (4.2-6.2); RED CELL DISTRIBUTION WIDTH 12.9 % (9.0-15.0); WHITE BLOOD COUNT (AUTO) 3.9 K/uL (4.8-10.8)
[2018-09-26 07:02] LABS: CALCIUM 8.2 mg/dL (8.4-11.0); CREATININE 0.75 mg/dL (0.55-1.30); POTASSIUM 4.2 mmol/L (3.5-5.1)
[2018-09-26 07:08] LABS: ALBUMIN 2.3 g/dL (3.4-4.8); TOTAL BILIRUBIN 0.4 mg/dL (0.0-1.0)
[2018-09-26 08:00] VITALS: BP_SYST 145
--- NOTE | 2018-09-26 08:00 | NUR ---
Opening Note Report received from Naheed WATSON shift nurse. Patient is currently resting in bed. Medicated earlier with Morphine 4mg IVP for the indicated pain scale. IV is on the LAC 20g running NS @150. Call light is within reach and bed is in low position. Will continue to monitor.
--- NOTE | 2018-09-26 10:41 | NUR ---
Rounds Patient is resting in bed. No signs of distress noted. Call light is within reach.
--- NOTE | 2018-09-26 11:50 | NUR ---
[facility] DC PLANNING: VERBAL UPDATE PROVIDED TO SUKH DEE/WAYNE: [phone]. [facility]Z WILL FAX MED RECORDS IF ABLE.
--- NOTE | 2018-09-26 12:05 | NUR ---
Rounds Patient is resting in bed. No signs of distress noted.
--- NOTE | 2018-09-26 14:17 | NUR ---
Rounds Patient is resting in bed. No signs of distress noted.
--- NOTE | 2018-09-26 16:00 | NUR ---
Pain med Medicated the patient with Morphine 4mg for the indicated pain scale will reassess.
--- NOTE | 2018-09-26 17:32 | NUR ---
BT INITIATION: Consent signed per agreeing to administration of blood. Blood has been type and crossmatched. Blood sent from blood bank. Information on unit of blood checked against patient wristband at bedside by two nurses. All information matches. Patient or responsible green party informed of potential complications associated with blood transfusion. Informed of possible transfusion reaction symptoms. Aware of need to notify nurse at once of itching, shortness of breath, flushing, feeling of impending doom, or other symptoms not previously present. Vital signs taken within 5 minutes prior to initiation of transfusion. RN will remain with patient for first 15 minutes of transfusion at which time vital signs will be re-assessed. Addendum: 09/26/18 at 1733 by Maria Victoria Ellington RN incorrect patient
--- NOTE | 2018-09-26 18:55 | NUR ---
Closing Note Patient is resting in bed. No signs of distress noted throughout the shift. Patient is tolerating his clear liquid diet well. IV is on the LAC 20g running NS@70. Call light is within reach and bed is in low position. Will endorse care to the oncoming nurse.
--- NOTE | 2018-09-26 19:08 | NUR ---
OPENING NOTES Bedside report received from dayshift nurse. Patient received lying in bed, AOx4, no s/s of acute distress noted. Breathing even and unlabored. IVF infusing well, IV site shows no signs of infiltration or infection. Call light with patient, instructed to call for any assistance, patient verbalized understanding. Bed alarm is off per patient's refusal, despite being educated on its purpose and benefits, will continue to encourage throughout shift. Bed is locked and at lowest position. Will continue to monitor.
[2018-09-26 20:00] VITALS: BP_SYST 147
[2018-09-26] MEDS ORDERED: INSULIN GLARGINE HUM REC ANLOG 40 UNIT SQ SCH (21:00)
[2018-09-26] MEDS ORDERED: INSULIN GLARGINE HUM REC ANLOG 50 UNIT SQ SCH (21:00)
--- NOTE | 2018-09-26 21:00 | NUR ---
ROUNDS Patient in bed sleeping, no signs of discomfort noted. Chest rise and fall even bilaterally. Call light with patient. Will continue to monitor.
--- NOTE | 2018-09-26 23:00 | NUR ---
PAIN/ACCUCHECK/IV BAG Patient complained of 6/10 abdominal pain at this time. Morphine to be administered per PRN order. Accucheck conducted, BS at 265, 6 units of Novilin R administered per sliding scale. New IV bag hung at this time. IVF infusing well. All needs met. Call light with patient. Will continue to monitor and reassess.
--- NOTE | 2018-09-27 01:00 | NUR ---
ROUNDS Patient sleeping. No s/s of acute distress noted. Breathing even and unlabored. IVF infusing well. Call light with patient. Will continue to monitor.
[2018-09-27] MEDS: MORPHINE 4 MG/ML INJ. SYRINGE IVP PRN ×4 (02:17→14:20)
[2018-09-27] MEDS: INSULIN REGULAR, HUMAN 100 UNITS/ML, 10 ML VIAL (novoLIN R) SUBCUT PRN ×4 (02:19→14:27)
--- NOTE | 2018-09-27 03:00 | NUR ---
ROUNDS Patient in bed eating snacks at this time. No s/s of acute distress. Breathing even and unlabored. IVF infusing well. Call light with patient. Will continue to monitor.
--- NOTE | 2018-09-27 05:00 | NUR ---
ROUNDS Patient in bed sleeping at this time. No signs of discomfort noted. Chest rise and fall even bilaterally. IVF infusing well. Call light with patient. Will continue to monitor.
[2018-09-27] MEDS: METOCLOPRAMIDE HCL 10 MG/2 ML VIAL IVP SCH ×2 (06:19→12:04)
--- NOTE | 2018-09-27 06:40 | NUR ---
CLOSING NOTE Patient in bed, resting, eyes closed, no s/s of acute distress noted. Breathing even and unlabored. IVF infusing well, IV site shows no signs of infiltration or infection. BS at 180, skin warm and dry to touch, no signs of hypoglycemia noted. All needs met throughout shift. Fall and safety precautions maintained throughout shift. Will continue to monitor until patient care is endorsed to oncoming day shift nurse.
--- NOTE | 2018-09-27 06:56 | NUR ---
Nutrition Update Ivan Scale 18 noted. Pt admitted for intractable vomiting, hyponatremia [facility]: [facility] BMI: 20.8 kg/m2 RD to follow per nutrition care standards.
--- NOTE | 2018-09-27 07:27 | NUR ---
OPENING NOTE: MORNING REPORT WAS TAKEN AT BEDSIDE FROM NIGHT NURSE. PATIENT WAS ASLEEP WITH NO SIGNS OF DISTRESS. PATIENT ON ROOM AIR. FLUIDS ARE INFUSING. CALL LIGHT IS IN REACH. PATIENT REFUSED TO HAVE BED ALARM ON. SIDE RAILS ARE UP AND BED IN LOWEST POSITION. WILL CONTINUE TO MONITOR.
--- NOTE | 2018-09-27 08:01 | NUR ---
NOTE: PATIENT REFUSED TO HAVE VITALS TAKEN AT MOMENT. PATIENT LAYING IN BED WITH NO SIGNS OF DISTRESS. PATIENT TRYING TO REFUSE TO WEAR TELE MONITOR. WILL ASK DR IF PATIENT CAN BE DOWNGRADED.
[2018-09-27] MEDS ORDERED: PANTOPRAZOLE SODIUM 40 MG TAB PO SCH (09:00)
[2018-09-27 10:20] VITALS: BP_SYST 129
--- NOTE | 2018-09-27 10:28 | NUR ---
PAIN MEDS: PATIENT COMPLAINING OF PAIN IN ABD. GAVE PATIENT PAIN MEDICATION. EDUCATED PATIENT ON SIDE EFFECTS. PATIENT LET ME TAKE VITALS PRIOR TO. PATIENT NOT COMPLAINING OF ANY DISTRESS. ALL NEEDS MED. CALL LIGHT IN REACH. WILL CONTINUE TO MONITOR.
--- NOTE | 2018-09-27 10:52 | NUR ---
[facility] DC PLANNING: VERBAL UPDATE PROVIDED TO SUKH RASHID: [phone].
--- NOTE | 2018-09-27 12:11 | NUR ---
NOTE: CHECKED PATIENT'S BLOOD SUGAR AND WAS 269. INSULIN GIVEN TO COVER. GAVE PATIENT SCHEDULED MEDICATION. PATIENT HAS NO SIGNS OF DISTRESS. CALL LIGHT IS IN REACH. WILL CONTINUE TO MONITOR.
[2018-09-27 12:35] VITALS: BP_SYST 133
--- NOTE | 2018-09-27 12:47 | NUR ---
Dietitian Recommendations *Recommend [facility] per MD. Please see Nutritional Assessment for details. KAROL, YAEL
--- NOTE | 2018-09-27 13:23 | NUR ---
PATIENT REFUSED LAB DRAW BECAUSE PATIENT SAID HE IS GOING TO GO HOME
[2018-09-27] MEDS: NACL 0.9% 1,000 ML IV SCH (14:17)
--- NOTE | 2018-09-27 14:29 | NUR ---
PAIN MEDS: PATIENT COMPLAINING OF PAIN IN ABD. GAVE PAIN MEDICATION. BLOOD SUGAR TAKEN AND INSULIN GIVEN TO COVER. ALL NEEDS MET. CALL LIGHT IS IN REACH. WILL CONTINUE TO MONITOR.
--- NOTE | 2018-09-27 15:59 | NUR ---
PATIENT KEEPS WANTING SNACKS: PATIENT AT DOOR WANTING FOOD. PATIENT ALREADY GIVEN SANDWICH AND CHIPS ABOUT HOUR AGO. EDUCATED PATIENT ON DIET. PATIENT INSISTING ON FOOD. LET PATIENT HAVE SUGAR FREE PUDDING.
[2018-09-27 16:30] VITALS: BP_SYST 130
[2018-09-27 17:34] VITALS: BP_SYST 130
--- NOTE | 2018-09-30 10:13 | NUR ---
Discharge Follow Up Phone Call [employer] Lieutenant phoned patient, , on 09/28/18, 09/29/18 and 09/30/18. In each case the call was answered with a recorded voice stating that " The person you have called is unavailable now." No more calls will be attempted.
== END 2018-09-27 18:05 | disposition home or self-care (01) | DRG 48 ==
LOC: SED 16:15 → STU 21:47
PROVIDERS: ADMIT Internal Medicine; ATTEND Internal Medicine
DX: E10.43 Type 1 diabetes mellitus with diabetic autonomic (poly)neuropathy (principal); E44.0 Moderate protein-calorie malnutrition; E10.65 Type 1 diabetes mellitus with hyperglycemia; E87.1 Hypo-osmolality and hyponatremia; F15.10 Other stimulant abuse, uncomplicated; K59.00 Constipation, unspecified; B19.20 Unspecified viral hepatitis C without hepatic coma; K31.84 Gastroparesis; Z88.8 Allergy status to other drugs, medicaments and biological substances; Z79.4 Long term (current) use of insulin; Z79.899 Other long term (current) drug therapy
CPT/HCPCS: 36415; 71045; 80053; 80307; 81000-TC; 82150-TC; 82962; 83605; 83690-TC; 85025; 85610-TC; 85730-TC; 87040-TC; 87081; 93005; 96361; 96375; 96376; 99285; G0378; J1630; J1815; J1885; J2270; J2405; J2765; J7030

== ENCOUNTER 2019-01-13 14:50 | Emergency (ER) | payer MEDICAID ==
[~2019-01-13] VITALS: Ht 190.5 cm; Wt 86.2 kg
[2019-01-13 14:55] VITALS: BP_SYST 147
--- NOTE | 2019-01-13 15:00 | NUR ---
Placed in room 08 . Placed on bus driver/monitor, blood pressure machine and pulse oximeter. To gown for exam. Side rails up.
--- NOTE | 2019-01-13 15:05 | NUR ---
Pt AAOx4 ambulated into ED c/o 06/16 RLQ abdominal pain with nausea and vomiting x 2-3 days. No other injuries/complaints per pt/noted. will continue to monitor .
--- NOTE | 2019-01-13 15:14 | NUR ---
ER Dr. Medina at bedside examining patient.
[2019-01-13] MEDS ORDERED: MORPHINE 4 MG/ML INJ. SYRINGE IVP ONE ×2 (15:30→17:00)
[2019-01-13] MEDS ORDERED: NACL 0.9% 1,000 ML IV ONE (15:30)
[2019-01-13] MEDS ORDERED: ONDANSETRON HCL 4 MG/2 ML VIAL IVP ONE ×2 (15:30→17:00)
[2019-01-13 16:02] LABS: BASOPHILS % (AUTO) 0.3 % (0.0-2.0); EOSINOPHILS % (AUTO) 0.2 % (0.0-4.0); HEMATOCRIT 38.3 % (36-54); HEMOGLOBIN 13.5 g/dL (14.0-18.0); LYMPHOCYTES # (AUTO) 1.1 K/uL (1.0-5.5); LYMPHOCYTES % (AUTO) 18.6 % (20.5-51.5); MEAN CORPUSCULAR HEMOGLOBIN 31 pg (27-31); MEAN CORPUSCULAR HGB CONC 35 % (32-36); MEAN CORPUSCULAR VOLUME 87 fL (79.0-98.0); MONOCYTES # (AUTO) 0.5 K/uL (0.0-1.0); NEUTROPHILS # (AUTO) 4.5 K/uL (1.8-7.7); NEUTROPHILS % (AUTO) 72.9 % (40.0-70.0); PLATELET COUNT (AUTO) 211 K/uL (130-430); RED BLOOD CELL COUNT(AUTO) 4.38 MIL/uL (4.2-6.2); RED CELL DISTRIBUTION WIDTH 13.7 % (9.0-15.0); WHITE BLOOD COUNT (AUTO) 6.1 K/uL (4.8-10.8)
[2019-01-13 16:12] LABS: CALCIUM 9.2 mg/dL (8.4-11.0); CREATININE 1.41 mg/dL (0.55-1.30); POTASSIUM 4.5 mmol/L (3.5-5.1)
[2019-01-13 16:17] LABS: ALBUMIN 4.3 g/dL (3.4-4.8); TOTAL BILIRUBIN 2.3 mg/dL (0.0-1.0)
--- NOTE | 2019-01-13 17:51 | NUR ---
Patient given written and verbal discharge instructions and verbalizes understanding. ER MD discussed with patient the results and treatment provided. Patient in stable condition. ID arm band removed. IV catheter removed intact and dressing applied, no active bleeding. Rx of zofran, ativan, tramadol given. Patient educated on pain management and to follow up with PMD. Pain Scale 0/10. Opportunity for questions provided and answered. Medication side effect fact sheet provided.
[2019-01-13 17:54] VITALS: BP_SYST 110
== END 2019-01-13 17:51 | disposition home or self-care (01) ==
LOC: SED 14:50
DX: E10.65 Type 1 diabetes mellitus with hyperglycemia (principal); E10.43 Type 1 diabetes mellitus with diabetic autonomic (poly)neuropathy; K31.84 Gastroparesis; R11.10 Vomiting, unspecified; R74.0 Nonspecific elevation of levels of transaminase and lactic acid dehydrogenase [LDH]; J44.9 Chronic obstructive pulmonary disease, unspecified; Z86.19 Personal history of other infectious and parasitic diseases; Z88.8 Allergy status to other drugs, medicaments and biological substances; Z79.82 Long term (current) use of aspirin
CPT/HCPCS: 36415; 80053; 82962; 83690; 85025; 96361; 96374; 96375; 96376; 99283; J2270; J2405; J7030

== ENCOUNTER 2019-01-31 19:38 | Emergency (ER) | payer MEDICAID ==
[~2019-01-31] VITALS: Ht 190.5 cm; Wt 86.2 kg
[2019-01-31 19:42] VITALS: BP_SYST 120
--- NOTE | 2019-01-31 19:47 | NUR ---
Patient to ER bed 08 to gown for evaluation. Side rails up. Report given to KRUPA Castillo.
--- NOTE | 2019-01-31 19:50 | NUR ---
Pt AAOx4 c/o 06/16 abdominal pain, nausea, vomiting x 3 days. Skin pink dry and warm, breathing even and unlaobred. No other injuries/complaints per pt/noted. Will continue to monitor.
--- NOTE | 2019-01-31 19:52 | NUR ---
ER Dr. Medina at bedside examining patient.
[2019-01-31] MEDS ORDERED: NACL 0.9% 1,000 ML IV ONE (20:00)
[2019-01-31] MEDS ORDERED: MORPHINE 4 MG/ML INJ. SYRINGE IVP ONE (20:00)
[2019-01-31] MEDS ORDERED: ONDANSETRON HCL 4 MG/2 ML VIAL IVP ONE ×2 (20:00)
[2019-01-31 20:12] LABS: BASOPHILS # (AUTO) 0.1 K/uL (0.0-0.2); BASOPHILS % (AUTO) 0.7 % (0.0-2.0); EOSINOPHILS # (AUTO) 0.1 K/uL (0.0-0.4); EOSINOPHILS % (AUTO) 0.9 % (0.0-4.0); HEMATOCRIT 40.9 % (36-54); HEMOGLOBIN 14.2 g/dL (14.0-18.0); LYMPHOCYTES # (AUTO) 2.1 K/uL (1.0-5.5); LYMPHOCYTES % (AUTO) 24.8 % (20.5-51.5); MEAN CORPUSCULAR HEMOGLOBIN 31 pg (27-31); MEAN CORPUSCULAR HGB CONC 35 % (32-36); MEAN CORPUSCULAR VOLUME 89 fL (79.0-98.0); MONOCYTES # (AUTO) 0.4 K/uL (0.0-1.0); MONOCYTES % (AUTO) 5.1 % (1.7-9.3); NEUTROPHILS # (AUTO) 5.8 K/uL (1.8-7.7); NEUTROPHILS % (AUTO) 68.5 % (40.0-70.0); PLATELET COUNT (AUTO) 249 K/uL (130-430); RED BLOOD CELL COUNT(AUTO) 4.61 MIL/uL (4.2-6.2); RED CELL DISTRIBUTION WIDTH 14.1 % (9.0-15.0); WHITE BLOOD COUNT (AUTO) 8.4 K/uL (4.8-10.8)
[2019-01-31 20:22] LABS: CALCIUM 8.8 mg/dL (8.4-11.0); CREATININE 1.09 mg/dL (0.55-1.30)
[2019-01-31 20:28] LABS: TOTAL BILIRUBIN 2.2 mg/dL (0.0-1.0)
[2019-01-31] MEDS ORDERED: INSULIN REGULAR, HUMAN 10 UNITS/0.1 ML INJ IVP ONE (20:45)
--- NOTE | 2019-01-31 21:07 | NUR ---
Patient given written and verbal discharge instructions and verbalizes understanding. ER MD Medina discussed with patient the results and treatment provided. Patient in stable condition. ID arm band removed. IV catheter removed intact and dressing applied, no active bleeding. Rx of Zofran given. Patient educated on pain management and to follow up with PMD. Pain Scale 9. Dr. Medina aware. Pt instructed to take Zofran prior to pain medication at home. Opportunity for questions provided and answered. Medication side effect fact sheet provided.
[2019-01-31 21:08] VITALS: BP_SYST 123
[2019-02-02] MEDS ORDERED: SSREG SUBCUT (08:25)
== END 2019-01-31 21:08 | disposition home or self-care (01) ==
LOC: SED 19:38
DX: E10.43 Type 1 diabetes mellitus with diabetic autonomic (poly)neuropathy (principal); K31.84 Gastroparesis; J44.9 Chronic obstructive pulmonary disease, unspecified; Z86.19 Personal history of other infectious and parasitic diseases; Z88.8 Allergy status to other drugs, medicaments and biological substances; Z79.899 Other long term (current) drug therapy
CPT/HCPCS: 36415; 80053; 82962; 83690; 85025; 96361; 96374; 96375; 99283; J1815; J2270; J2405; J7030